=== PATIENT | female | born 1940 | race Caucasian/White ===

== ENCOUNTER → 2018-04-14 | Outpatient (CLI) | payer MEDICARE, OTHER ==
--- NOTE | 2018-04-14 14:37 | XR ---
EXAM TYPE: LUMBAR SPINE X RAY SERIES COMPARISON: NONE HISTORY: Low back pain TECHNIQUE: 3 views are submitted. FINDINGS: Alignment is anatomic. The pedicles are intact. The transverse processes are intact. Diffuse osteo penia. Multilevel mild degenerative disc disease. Facet arthropathy L4-5 and L5-S1. Vascular calcific ations noted. Minimal anterolisthesis L4 on L5. IMPRESSION: 1. Multilevel mild degenerative disc disease with more advanced facet arthropathy involving the lower lumbar spine. Consider follow-up MRI for assessment foraminal encroachment..
== END | disposition home or self-care (01) ==
LOC: RADXRMAIN 14:04
PROVIDERS: ATTEND Physician Assistant
DX: M51.36 Other intervertebral disc degeneration, lumbar region (principal); M46.96 Unspecified inflammatory spondylopathy, lumbar region
CPT/HCPCS: 72100

== ENCOUNTER → 2018-05-10 | Outpatient (CLI) | payer MEDICARE, OTHER ==
--- NOTE | 2018-05-10 15:52 | BD ---
EXAMINATION TYPE: Axial Bone Density DATE OF EXAM: 05/10/2018 COMPARISON: NONE CLINICAL HISTORY: Menopausal state. Osteoporosis screening. Height: 4'10 Weight: 134 FRAX RISK QUESTIONS: Secondary Osteoporosis: RISK FACTORS HISTORY OF: Postmenopausal woman: y MEDICATIONS: Thyroid Medications: Which medication: Levothyroxine How Lon Additional Medications: pain pills, cholesterol Additional History: breast cancer 1994, radiation, chemo EXAM MEASUREMENTS: Bone mineral densitometry was performed using the [employer] System. Bone mineral density as measured about the Lumbar spine is: ----- L1-L4(G/cm2): 0.952 T Score Values are as follows: ----- L2: -1.9 ----- L3: -2.0 ----- L4: -2.0 ----- L1-L4: -1.9 Bone mineral density about the R hip (g/cm2): 0.679 Bone mineral density about the L hip (g/cm2): 0.670 T Score values are as follows: -----R Neck: -2.6 -----L Neck: -2.6 -----R Total: -2.0 -----L Total: -2.3 IMPRESSION: Osteoporosis (T Score less than -2.5). There is increased fracture risk and therapy is usually indicated based on age. Re-Screen 1-2 years. NOTE: T-SCORE=SD OF THE YOUNG ADULT MEAN.
--- NOTE | 2018-05-11 13:28 | MM ---
Reason for exam: screening (asymptomatic). History: Patient is postmenopausal and has history of breast cancer at age 54. Family history of breast cancer in 3 sisters. Lumpectomy of the right breast. Radiation therapy of the right breast. Took hormonal contraceptives for 29 years beginning at age 25. Took antineoplastic for 5 years. Physical Findings: A clinical breast exam by your physician is recommended on an annual basis and results should be correlated with mammographic findings. MG Screening Mammo w CAD Bilateral CC and MLO view(s) were taken. The breast tissue is heterogeneously dense. This may lower the sensitivity of mammography. Benign calcifications. There is no discrete abnormality. Post operative changes in the right breast. ASSESSMENT: Benign, BI-RAD 2 RECOMMENDATION: Routine screening mammogram of both breasts in 1 year.
== END | disposition home or self-care (01) ==
LOC: RADMAMWWP 14:39
PROVIDERS: ATTEND Family Medicine
DX: Z12.31 Encounter for screening mammogram for malignant neoplasm of breast (principal); Z00.00 Encounter for general adult medical examination without abnormal findings; M81.0 Age-related osteoporosis without current pathological fracture
CPT/HCPCS: 77067; 77080

== ENCOUNTER 2018-06-24 13:40 | Emergency (ER) | payer MEDICARE, OTHER ==
[2018-06-24 13:53] VITALS: BP 92/65; PULSE 112; RESP 20; TEMP 98.5
--- NOTE | 2018-06-24 14:32 | CT ---
EXAMINATION TYPE: CT brain cspine wo con DATE OF EXAM: 06/24/2018 COMPARISON: NONE HISTORY: Fell today, left forehead abrasion and neck pain. CT DLP: 1160 mGycm. Automated Exposure Control for Dose Reduction was Utilized. TECHNIQUE: CT scan of the head and cervical spine are performed without contrast. FINDINGS: There is no acute intracranial hemorrhage or shift identified. There is ventricular and s ulcal prominence. . There is low attenuation the periventricular white matter. Exam slightly suboptim al as portions of left hand are outside field of view. Vascular desiccation distal internal carotid a rteries bilaterally is present. Visualized portion of calvarium is intact. The globes are intact and the visualized sinuses are clear. Cervical spine is visualized in its entirety from C1 through upper thoracic levels and demonstrates s traightened alignment without evidence of acute fracture or dislocation. Prevertebral soft tissue ap pears within normal limits. The C1-C2 articulation is within normal limits on the coronal images. T here is mild disc space narrowing with mild/moderate anterior spurring C6-C7 level. Vertebral body he ights and disc space heights are otherwise maintained. Spinal canal is preserved. Moderate calcificat ion left carotid bulb level is seen. Lung apices show emphysematous change. IMPRESSION: 1. There is no acute fracture or dislocation evident in the cervical spine. 2. Suboptimal study without acute intracranial hemorrhage or midline shift is seen. Mild to moderate generalized atrophy and chronic small vessel ischemic change noted.
--- NOTE | 2018-06-24 14:47 | XR ---
EXAMINATION TYPE: XR shoulder complete LT DATE OF EXAM: 06/24/2018 CLINICAL HISTORY: Left shoulder pain after falling injury one day ago. TECHNIQUE: Three views of the left shoulder are obtained. COMPARISON: None. FINDINGS: Demineralization is present. There is no acute fracture/dislocation evident in the left esme ulder. Mild to moderate narrowing of acromioclavicular and glenohumeral joints is seen. Distal acromi on morphology is unremarkable. The visualized ribs are intact and unremarkable. IMPRESSION: There is no acute fracture or dislocation in the left shoulder.
--- NOTE | 2018-06-24 14:48 | XR ---
EXAMINATION TYPE: XR knee complete LT DATE OF EXAM: 06/24/2018 CLINICAL HISTORY: Left knee pain after fall injury yesterday. TECHNIQUE: Three views of the left knee are obtained. COMPARISON: None. FINDINGS: There is no acute fracture/dislocation evident in the left knee. Mild tricompartment joint space loss is seen most prominent patellofemoral compartment where there is minimal spurring. The o verlying soft tissue appears unremarkable. IMPRESSION: There is no acute fracture or dislocation in the left knee.
--- NOTE | 2018-06-24 14:49 | XR ---
EXAMINATION TYPE: XR wrist complete LT DATE OF EXAM: 06/24/2018 CLINICAL HISTORY: Left wrist pain after fall injury yesterday. TECHNIQUE: Frontal, lateral, scaphoid, and oblique images of the left wrist are obtained. COMPARISON: None FINDINGS: There is no acute fracture/dislocation evident in the left wrist. Demineralization is pre sent. The joint spaces in the left wrist appear within normal limits. The overlying soft tissue appe ars unremarkable. IMPRESSION: There is no acute fracture or dislocation in the left wrist.
--- NOTE | 2018-06-24 15:14 | ED ---
Fall HPI - General Chief Complaint: Fall Stated Complaint: Fall Time Seen by Provider: 06/24/18 14:00 Source: patient, RN notes reviewed Mode of arrival: ambulatory Limitations: no limitations - History of Present Illness Initial Comments: 77-year-old female presents to the emergency Department with chief complaint of fall. Patient states she tripped yesterday. Patient states that she did strike her head no loss conscious mild headache today she does take Plavix. No blurred vision no focal weakness. Patient went to left wrist pain left shoulder pain, left knee pain. No open wounds. Patient offers no other complaints. No chest pain or shortness breath. - Related Data Home Medications Medication Instructions Recorded Confirmed Acetaminophen Tab [Tylenol Tab] 650 mg PO Q6H PRN 06/24/18 06/24/18 Alendronate Sodium 70 mg PO Q7D 06/24/18 06/24/18 Clopidogrel [Plavix] 75 mg PO DAILY 06/24/18 06/24/18 Cyanocobalamin [Vitamin B-12] 500 mcg PO DAILY 06/24/18 06/24/18 DULoxetine HCL [Cymbalta] 20 mg PO BID 06/24/18 06/24/18 LORazepam [Ativan] 1 mg PO BID 06/24/18 06/24/18 Levothyroxine Sodium [Synthroid] 50 mcg PO DAILY 06/24/18 06/24/18 Multivitamins, Thera [Multivitamin 1 tab PO DAILY 06/24/18 06/24/18 (formulary)] Omeprazole 20 mg PO DAILY 06/24/18 06/24/18 Simvastatin 40 mg PO DAILY 06/24/18 06/24/18 amLODIPine [Norvasc] 5 mg PO DAILY 06/24/18 06/24/18 rOPINIRole HCL [Requip] 2 mg PO DAILY 06/24/18 06/24/18 traZODone HCL 50 mg PO HS 06/24/18 06/24/18 Allergies Allergy/AdvReac Type Severity Reaction Status Date / Time No Known Allergies Allergy Verified 06/24/18 14:28 Review of Systems ROS Statement: Those systems with pertinent positive or pertinent negative responses have been documented in the HPI. ROS Other: All systems not noted in ROS Statement are negative. 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 Absent: scleral icterus, conjunctival injection, periorbital swelling ENT exam: Present: normal exam, mucous membranes moist Neck exam: Present: normal inspection, full ROM. Absent: tenderness, meningismus, lymphadenopathy Respiratory exam: Present: normal lung sounds bilaterally. Absent: respiratory distress, wheezes, rales, rhonchi, stridor Cardiovascular Exam: Present: normal rhythm, tachycardia, normal heart sounds. Absent: systolic murmur, diastolic murmur, rubs, gallop, clicks GI/Abdominal exam: Present: soft, normal bowel sounds. Absent: distended, te nderness, guarding, rebound, rigid Extremities exam: Present: other (Left shoulder mild tenderness, limited range of motion secondary to pain, left wrist tenderness with palpation mild swelling no ecchymosis no snuffbox tenderness left knee tenderness no palpation over the patella, no abrasion mild ecchymosis no neurovascular intact no tenderness above or below.) Course Vital Signs 06/24/18 13:47 Temperature 98.5 F Pulse Rate 112 H Respiratory 20 Rate Blood Pressure 92/65 O2 Sat by Pulse 98 Oximetry Medical Decision Making - Medical Decision Making 77-year-old female presents emergency Department for fall, head injury, left shoulder left knee and left wrist pain. X-ray CT is obtained no acute abnormality's. Patient be discharged return parameters were discussed. Disposition Clinical Impression: Fall, Head injury, Wrist sprain, Shoulder strain, Contusion of knee, left Disposition: HOME SELF-CARE Condition: Stable Instructions (If sedation given, give patient instructions): Head Injury (ED), Knee Pain (ED) Additional Instructions: Please return to the Emergency Department if symptoms worsen or any other concerns. Is patient prescribed a controlled substance at d/c from ED?: No Referrals: Callum Cain MD [Primary Care Provider] - 1-2 days Time of Disposition: 15:14
== END 2018-06-24 15:45 | disposition home or self-care (01) ==
LOC: EC 13:40
DX: S09.90XA Unspecified injury of head, initial encounter (principal); S63.502A Unspecified sprain of left wrist, initial encounter; S46.912A Strain of unspecified muscle, fascia and tendon at shoulder and upper arm level, left arm, initial encounter; S80.02XA Contusion of left knee, initial encounter; M79.7 Fibromyalgia; I10 Essential (primary) hypertension; E07.9 Disorder of thyroid, unspecified; Z85.3 Personal history of malignant neoplasm of breast; Z86.73 Personal history of transient ischemic attack (TIA), and cerebral infarction without residual deficits; Z87.891 Personal history of nicotine dependence; Z87.39 Personal history of other diseases of the musculoskeletal system and connective tissue; Z79.02 Long term (current) use of antithrombotics/antiplatelets; Z79.890 Hormone replacement therapy; Z79.899 Other long term (current) drug therapy; W10.9XXA Fall (on) (from) unspecified stairs and steps, initial encounter; Y92.511 Restaurant or cafe as the place of occurrence of the external cause
CPT/HCPCS: 70450; 72125; 99284

== ENCOUNTER 2018-09-07 10:17 | Day surgery (SDC) | payer MEDICARE, OTHER ==
[2018-09-05 14:33] VITALS: BMI 25.2
[~2018-09-07 10:17] MED LIST: ALPRAZolam 0.25 MG TAB PO PRN; ALPRAZolam 0.5 MG TAB PO PRN; ASPIRIN 325 MG TAB PO STA; ATORVASTATIN 80 MG TAB PO STA; NITROGLYCERIN SL TABS 0.4 MG TAB SUBLINGUAL PRN; SODIUM CHLORIDE 0.9% 1,000 ML in EMPTY BAG 1 BAG IV ONE
[2018-09-07] MEDS ORDERED: SODIUM CHLORIDE 0.9% 1,000 ML IV ONE (10:30)
[2018-09-07 11:03] VITALS: TEMP 98
[2018-09-07] MEDS ORDERED: LIDOCAINE 1% INJ 10MG/ML (20 ML MDV) ONE (12:23)
[2018-09-07] MEDS ORDERED: MIDAZOLAM (PF) 2 MG/2 ML VIAL IV ONE (12:50)
[2018-09-07] MEDS ORDERED: LIDOCAINE 1% INJ 10MG/ML (20 ML MDV) SQ ONE (12:54)
[2018-09-07] MEDS ORDERED: NITROGLYCERIN SL TABS 0.4 MG TAB SUBLINGUAL ONE ×2 (13:00→13:04)
[2018-09-07] MEDS ORDERED: IOPAMIDOL-370 100ML BTL INJ ONE (13:20)
[2018-09-07] MEDS ORDERED: ACETAMINOPHEN TAB 325 MG TAB PO PRN (13:39)
[2018-09-07] MEDS ORDERED: SODIUM CHLORIDE 0.9% 1,000 ML IV SCH (13:45)
[2018-09-07] MEDS ORDERED: NON-FORMULARY DRUG (Alendronate Sodium [Alendronate Sodium] 70 MG) PO SCH (13:45)
--- NOTE | 2018-09-07 16:35 | CC ---
CARDIAC CATHETERIZATION REPORT DATE OF SERVICE: 09/07/2018 PROCEDURE: Left heart catheterization and coronary angiography. PERFORMED BY: Dr. Matt Bailon. CLINICAL INFORMATION: Mrs. Olena Cool is a 77-year-old lady was recently seen by me a few weeks ago in [facility]. She presented with what seemed to be a pericarditis type picture with pericardial effusion and also a myocarditis type picture with borderline troponin elevation and decreased LV function. LV function improved and pericardial effusion improved remarkably. However, because of symptoms of chest tightness and pressure, I recommended coronary angiography. Also she has underlying cardiomyopathy. Risks, benefits, options and rationale were explained. This patient also has a pressure difference of nearly 40 to 50 mmHg between the left and right upper extremities, and therefore I recommended angiography of the left subclavian artery as well. PROCEDURE NOTE: Under local anesthesia and strict aseptic precautions, a 6-Romansh introducer was placed in the right femoral artery. Using a David catheter, I performed selective injection of the left subclavian artery and performed angiography in multiple projections. I then used standard Lavon catheters for coronary angiography and a pigtail catheter to check LV pressures. LV gram was not performed. Sheath was taken out and manual compression used to secure hemostasis. Femstop was applied and patient was sent to the room in a stable condition. The results were discussed with the patient, her son and [id number]. I am recommending staged intervention of the circumflex, marginal and the mid LAD, which will be performed in the next week or so. The patient was hydrated before the procedure and she will be hydrated after the procedure prior to discharge. Moderate conscious sedation time was 24 minutes. Patient was administered Versed. Oxygen saturation, hemodynamics and EKG were monitored closely. CARDIAC CATHETERIZATION FINDINGS: The left ventricular end-diastolic pressure was 12 mmHg without any gradient across the aortic valve. CORONARY ANGIOGRAPHY FINDINGS: RIGHT CORONARY ARTERY: This is technically a nondominant vessel, small in caliber and distribution, with diffuse disease. A limited amount of myocardium is supplied by it. LEFT SUBCLAVIAN ARTERY: This vessel has a tight 80% stenosis with heavy calcification in the proximal portion of the circumflex as it comes off from the aorta. Left internal mammary artery appears to be of a good caliber. There is heavy calcification and 80% stenosis in the circumflex, which explains her pressure difference in both the arms. LEFT MAIN CORONARY ARTERY: This is a short, patent, disease-free vessel that bifurcates into LAD and circumflex. LEFT ANTERIOR DESCENDING CORONARY ARTERY: This is a fair-caliber vessel, heavily calcified. It has diffuse disease, but in the mid portion there is an eccentric 70% to 80% narrowing, a long calcified lesion, after which the caliber improves and the vessel runs all the way to the apex supplying a fair amount of myocardium. Small septal and diagonal branches come off which are free of significant disease. LEFT POSTERIOR CIRCUMFLEX CORONARY ARTERY: This is a very dominant vessel, gives off a high first obtuse marginal that has an 80% stenosis, fair-caliber, fair-distribution vessel. Distally it gives off PDA and PLV branches, both of which are large in caliber and distribution but have no other significant disease. LEFT VENTRICULOGRAM: This was not performed. FINAL IMPRESSION: This patient has a dominant left circumflex coronary artery with a first obtuse marginal of 80% stenosis, significant fair-caliber vessel. LAD is diffusely diseased, but the mid portion is 70% to 80% stenosed with heavy calcification. The nondominant RCA has mild diffuse disease. Left subclavian has a significant 80% stenosis with calcification. Filling pressures are normal without any gradient across the aortic valve. RECOMMENDATIONS: I am recommending staged intervention of the LAD and circumflex marginal. Patient will be brought back for the procedure after adequate hydration. Circumflex intervention will be performed also electively. Findings, rationale, risks, benefits and options were explained to the patient and family. They understand all details and wish to proceed with the procedure. MMODL / IJN: [id number] /
[2018-09-07 17:22] VITALS: RESP 16
[2018-09-07 17:36] VITALS: BP 159/77; PULSE 73
[2018-09-07] MEDS ORDERED: AMOXICILLIN PO SCH (21:00)
[2018-09-07] MEDS ORDERED: NON-FORMULARY DRUG (Magnesium Oxide 250 MG) PO SCH (21:00)
[2018-09-07] MEDS ORDERED: NON-FORMULARY DRUG (Simvastatin [Simvastatin] 40 MG) PO SCH (21:00)
[2018-09-07] MEDS ORDERED: LOSARTAN 50 MG TAB PO SCH (21:00)
[2018-09-07] MEDS ORDERED: CARVEDILOL 3.125 MG TAB PO SCH (21:00)
[2018-09-07] MEDS ORDERED: traZODone HCL 50 MG TAB PO SCH (21:00)
[2018-09-07] MEDS ORDERED: DULoxetine HCL 20 MG CAPSULE.DR PO SCH (21:00)
[2018-09-07] MEDS ORDERED: LORazepam 1 MG TAB PO SCH (21:00)
[2018-09-07] MEDS ORDERED: GABAPENTIN 300 MG CAP PO SCH (21:00)
[2018-09-07] MEDS ORDERED: ROPINIROLE HCL 2 MG PO SCH (21:00)
[2018-09-08] MEDS ORDERED: MULTIVITAMINS, THERA 1 EACH TAB PO SCH (09:00)
[2018-09-08] MEDS ORDERED: LEVOTHYROXINE 50 MCG TAB PO SCH (09:00)
[2018-09-08] MEDS ORDERED: CYANOCOBALAMIN 500 MCG TAB PO SCH (09:00)
[2018-09-08] MEDS ORDERED: NON-FORMULARY DRUG (Aspirin [Adult Low Dose Aspirin Ec] 81 MG) PO SCH (09:00)
[2018-09-08] MEDS ORDERED: NON-FORMULARY DRUG (Omeprazole [Omeprazole] 20 MG) PO SCH (09:00)
[2018-09-08] MEDS ORDERED: CLOPIDOGREL 75 MG TAB PO SCH (09:00)
--- NOTE | 2018-09-08 12:48 | ECHOF ---
Referral Reason:evaluate pericardial effusion MEASUREMENTS -------- HEIGHT: 149.9 cm WEIGHT: 56.2 kg BP: IVSd: 1.3 cm (0.6 - 1.1) LVIDd: 4.6 cm (3.9 - 5.3) LVPWd: 1.2 cm (0.6 - 1.1) IVSs: 1.6 cm LVIDs: 4.0 cm LVPWs: 1.5 cm LAESV Index (A-L): 40.00 ml/m Ao Diam: 2.5 cm (2.0 - 3.7) AV Cusp: 1.5 cm (1.5 - 2.6) LA Diam: 4.0 cm (2.7 - 3.8) EPSS: 1.5 cm MV E Ky: 0.73 m/s MV DecT: 190 ms MV A Ky: 1.32 m/s MV E/A Ratio: 0.55 RAP: 5.00 mmHg RVSP: 33.58 mmHg MV EF SLOPE: 73.22 mm/s (70 - 150) MV EXCURSION: 1.47 cm (> 18.000) FINDINGS -------- Sinus rhythm. This was a technically adequate study. The left ventricular size is normal. There is mild concentric left ventricular hypertrophy. There is moderate global hypokinesis of LV . Overall left ventricular systolic function is severely impa ired with, an EF between 25 - 30 %. The right ventricle is normal in size. Left atrium is severely dilated by volume. The right atrial size is normal. Interatrial and interventricular septum intact. There is mild aortic valve sclerosis without stenosis. There is no evidence of aortic regurgitation . There is no evidence of aortic stenosis. Mild mitral regurgitation is present. Mild tricuspid regurgitation present. There is no evidence of pulmonary hypertension. The right v entricular systolic pressure, as measured by Doppler, is 33.58mmHg. The pulmonic valve is normal. The aortic root size is normal. The inferior vena cava was not well visualized. There is a small, generalized pericardial effusion present. CONCLUSIONS -------- 1. Sinus rhythm. 2. This was a technically adequate study. 3. The left ventricular size is normal. 4. There is mild concentric left ventricular hypertrophy. 5. There is moderate global hypokinesis of LV . 6. Overall left ventricular systolic function is severely impaired with, an EF between 25 - 30 %. 7. The right ventricle is normal in size. 8. Left atrium is severely dilated by volume. 9. The right atrial size is normal. 10. Interatrial and interventricular septum intact. 11. There is mild aortic valve sclerosis without stenosis. 12. There is no evidence of aortic regurgitation. 13. There is no evidence of aortic stenosis. 14. Mild mitral regurgitation is present. 15. Mild tricuspid regurgitation present. 16. There is no evidence of pulmonary hypertension. 17. The right ventricular systolic pressure, as measured by Doppler, is 33.58mmHg. 18. The pulmonic valve is normal. 19. The aortic root size is normal. 20. The inferior vena cava was not well visualized. 21. There is a small, generalized pericardial effusion present. ELECTRICAL AND RADIO MECHANIC: Brunilda Longoria RDCS
== END 2018-09-07 19:15 | disposition home or self-care (01) ==
LOC: CATHCVL 10:17
PROVIDERS: ATTEND Internal Medicine Interventional Cardiology
DX: I25.10 Atherosclerotic heart disease of native coronary artery without angina pectoris (principal); F17.210 Nicotine dependence, cigarettes, uncomplicated; Z86.73 Personal history of transient ischemic attack (TIA), and cerebral infarction without residual deficits; Z85.3 Personal history of malignant neoplasm of breast; I11.0 Hypertensive heart disease with heart failure; I50.9 Heart failure, unspecified; Z79.82 Long term (current) use of aspirin; Z79.890 Hormone replacement therapy; Z79.899 Other long term (current) drug therapy; Z79.02 Long term (current) use of antithrombotics/antiplatelets; I77.1 Stricture of artery; I42.0 Dilated cardiomyopathy; I31.3 Pericardial effusion (noninflammatory)
CPT/HCPCS: 93306; 93458; C1894; C1769; J2001; Q9967; J2250

== ENCOUNTER → 2018-09-13 | Outpatient (CLI) | payer MEDICARE, OTHER ==
[2018-09-13 11:24] LABS: HCT 42.4 % (34.0-46.0); HGB 13.6 gm/dL (11.4-16.0); MCHC 32.1 g/dL (31.0-37.0); MCV 90.4 fL (80.0-100.0); Platelet Count 224 k/uL (150-450); WBC 7.5 k/uL (3.8-10.6)
[2018-09-13 11:30] LABS: Magnesium 2.3 mg/dL (1.6-2.3); Potassium 4.5 mmol/L (3.5-5.1)
== END | disposition home or self-care (01) ==
LOC: LABPAT 10:38
PROVIDERS: ATTEND Internal Medicine Interventional Cardiology
DX: Z01.812 Encounter for preprocedural laboratory examination (principal); I25.10 Atherosclerotic heart disease of native coronary artery without angina pectoris; I10 Essential (primary) hypertension
CPT/HCPCS: 80051; 82565; 82947; 83735; 84520; 85027

== ENCOUNTER 2018-09-20 09:31 | Day surgery (SDC) | payer MEDICARE, OTHER ==
[2018-09-20] MEDS ORDERED: ALPRAZolam 0.5 MG TAB PO PRN (09:53)
[2018-09-20] MEDS ORDERED: SODIUM CHLORIDE 0.9% 1,000 ML in EMPTY BAG 1 BAG IV ONE (09:53)
[2018-09-20] MEDS ORDERED: NITROGLYCERIN SL TABS 0.4 MG TAB SUBLINGUAL PRN (09:53)
[2018-09-20] MEDS ORDERED: ATORVASTATIN 80 MG TAB PO STA (09:53)
[2018-09-20] MEDS ORDERED: ASPIRIN 325 MG TAB PO STA (09:53)
[2018-09-20] MEDS ORDERED: ALPRAZolam 0.25 MG TAB PO PRN (09:53)
[2018-09-20] MEDS ORDERED: LIDOCAINE 1% INJ 10MG/ML (20 ML MDV) ONE (10:23)
[2018-09-20] MEDS ORDERED: MIDAZOLAM (PF) 2 MG/2 ML VIAL IVP ONE (11:05)
[2018-09-20] MEDS ORDERED: LIDOCAINE 1% INJ 10MG/ML (20 ML MDV) SQ ONE (11:09)
[2018-09-20] MEDS ORDERED: HEPARIN SODIUM 1,000 UN/ML (10ML VL) ONE (11:12)
[2018-09-20] MEDS: NITROGLYCERIN 1000MCG/10ML SYRINGE INTRACORON ONE ×6 (11:12→12:07)
[2018-09-20] MEDS: HEPARIN SODIUM 1,000 UN/ML (10ML VL) IV ONE ×2 (11:12→12:09)
[2018-09-20] MEDS ORDERED: HYDROmorphone 1 MG/ML 1 ML SYRINGE ONE (11:43)
[2018-09-20] MEDS ORDERED: HYDROmorphone 1 MG/ML 1 ML SYRINGE IVP ONE (11:45)
[2018-09-20] MEDS ORDERED: IOPAMIDOL-370 100ML BTL INJ ONE ×2 (11:55→12:14)
[2018-09-20] MEDS ORDERED: CLOPIDOGREL 75 MG TAB ONE (12:10)
[2018-09-20] MEDS ORDERED: CLOPIDOGREL 75 MG TAB PO ONE (12:14)
[2018-09-20] MEDS ORDERED: ACETAMINOPHEN TAB 325 MG TAB PO PRN (12:21)
[2018-09-20] MEDS ORDERED: SODIUM CHLORIDE 0.9% 1,000 ML IV SCH (12:30)
[2018-09-20] MEDS ORDERED: ZOLPIDEM 5 MG TAB PO PRN (12:34)
[2018-09-20] MEDS ORDERED: ATROPINE SULFATE 0.1 MG/ML 10ML SYRINGE IV PRN (12:34)
[2018-09-20] MEDS ORDERED: RX INFO: IV CONTRAST WAS GIVEN 1 EACH MISC MISCELLANE PRN (12:34)
[2018-09-20] MEDS ORDERED: MAG HYDROX/AL HYDROX/SIMETH 30 ML CUP PO PRN (12:34)
[2018-09-20 15:17] VITALS: BMI 25.8
[2018-09-20] MEDS: GABAPENTIN 300 MG CAP PO SCH ×2 (15:29→22:47)
[2018-09-20] MEDS: CARVEDILOL 6.25 MG TAB PO SCH (17:23)
[2018-09-20] MEDS ORDERED: LOSARTAN 50 MG TAB PO SCH (21:00)
[2018-09-20] MEDS ORDERED: traZODone HCL 50 MG TAB PO SCH (21:00)
--- NOTE | 2018-09-20 22:44 | CC ---
CARDIAC CATHETERIZATION REPORT PROCEDURE: Orbital atherectomy, PTCA and stenting of heavily calcified mid left anterior descending coronary artery with a drug-eluting stent. PERFORMED BY: Dr. Matt Bailon. SEDATION: Moderate conscious sedation time was 64 minutes. The patient was administered Versed and Dilaudid. Oxygen saturation, hemodynamics and EKG were monitored closely. DATE OF SERVICE: 09/20/2018. CLINICAL INFORMATION: Mrs. Olena Cool is a 77-year-old lady with recent diagnosis of cardiomyopathy with heart failure, also had some pericarditis type picture. She underwent a cardiac cath about 2 weeks ago which revealed a heavily calcified mid LAD lesion in the range of 70- 80 percent, very long eccentric heavily calcified. She also has a left subclavian stenosis and also a first obtuse marginal stenosis of a very dominant circumflex coronary artery. The RCA was small, nondominant with mild diffuse disease. She was advised LAD intervention. Due discussion regarding the rationale, risks, benefits, options were explained. Because of heavy calcification, I recommended that we will do an orbital atherectomy and stenting. She was brought in for the procedure electively. PROCEDURE NOTE: Under local anesthesia and strict aseptic precautions, a 6-Taiwanese introducer was placed in the right femoral artery. I used a JL3.5 guide catheter to cannulate the left coronary artery. The patient was administered intravenous heparin and her ACT was 384. I used a run-through wire to cross the long calcified segment in the LAD and kept the wire distally. I used a teleport exchange catheter and with this I exchanged this wire for a Viper wire. I then used an orbital atherectomy device and I used a glide assist feature. With this, I made 3 passes and performed atherectomy of the mid LAD. Patient tolerated the procedure well without any issues. The atherectomy device was taken out under fluoroscopic guidance. Using the same Viper wire, I deployed a 2.0 caliber 18 mm long on Bowen drug-eluting stent at 14 atmospheres. Excellent angiographic result was achieved. I then advanced a 2.25 caliber 15 mm long NC Trek balloon and with this NC Trek balloon, I post dilated the stent in the entire length at 14 atmospheres. Patient had chest pain and precordial ST elevation. ACT was good at 384. Subsequent ACT at the end of procedure was 273. Additional 2000 units of heparin was given. Excellent angiographic result was achieved. Patient had chest pain and EKG changes, which improved completely and there was an excellent CECIL-3 flow at the end of procedure. The results were discussed with the patient and family. The sheath was taken out and Angio-Seal device used to secure hemostasis. Because of some oozing, I recommended a Femstop for a couple of hours. HAZEL / LAUREN: [id number] /
[2018-09-20] MEDS: DULoxetine HCL 20 MG CAPSULE.DR PO SCH (22:48)
[2018-09-21 03:02] VITALS: RESP 16; TEMP 98
[2018-09-21] MEDS: CARVEDILOL 6.25 MG TAB PO SCH (06:10)
[2018-09-21] MEDS ORDERED: LEVOTHYROXINE 50 MCG TAB PO SCH (06:30)
[2018-09-21 06:54] LABS: HCT 38.4 % (34.0-46.0); HGB 11.9 gm/dL (11.4-16.0); Hypochromasia Slight; MCH 29.3 pg (25.0-35.0); MCHC 31.1 g/dL (31.0-37.0); MCV 94.4 fL (80.0-100.0); Mean Platelet Volume 8.3; Platelet Count 150 k/uL (150-450); RBC 4.07 m/uL (3.80-5.40); RDW 15.2 % (11.5-15.5); WBC 5.8 k/uL (3.8-10.6)
[2018-09-21 07:04] LABS: African American GFR (CKD) >90 (>60 ml/min/1.73 sqM); Anion Gap 5 mmol/L; Blood Urea Nitrogen 12 mg/dL (7-17); Calcium 8.5 mg/dL (8.4-10.2); Carbon Dioxide 25 mmol/L (22-30); Chloride 110 mmol/L (98-107); Glucose 99 mg/dL (74-99); Potassium 4.2 mmol/L (3.5-5.1); Sodium 140 mmol/L (137-145)
[2018-09-21] MEDS: DULoxetine HCL 20 MG CAPSULE.DR PO SCH (08:24)
[2018-09-21] MEDS: GABAPENTIN 300 MG CAP PO SCH (08:24)
[2018-09-21 08:40] VITALS: BP 109/95; PULSE 90
--- NOTE | 2018-09-21 08:50 | P.DS ---
Providers Attending physician: Tobi Bailon Consults: 09/20/18 12:34 Consult Physician Routine Consulting Provider: [facility] Consult Reason/Comments: Post Interventional patient Do you want consulting provider notified?: Already Contacted Primary care physician: Stated None Hospital Course: This is a pleasant 77-year-old female with recent diagnosis of cardiomyopathy and heart failure she underwent cardiac catheterization 2 weeks ago revealing a heavy calcified mid LAD lesion in the range of 70-80%. She was advised intervention of the LAD. She was brought in yesterday electively to undergo orbital atherectomy and stent placement to the LAD via the right femoral artery. She tolerated the procedure well without any issues. Excellent angiographic results were achieved. Repeat EKG this morning revealed precordial ST changes that were present prior to the procedure. Laboratory data reviewed WBC 5.8, hemoglobin 11.9, platelets 150, sodium 140, potassium 4.2, creatinine 0.73 with a GFR of 80. Blood pressure 109/95 heart rate 90, afebrile and maintaining oxygen saturation on room air. Right groin is soft, nontender with no evidence of hematoma, bleeding or oozing. GENERAL: Well-appearing, well-nourished and in no acute distress. NECK: Supple without JVD or thyromegaly. LUNGS: Breath sounds clear to auscultation bilaterally. Respiration equal and unlabored. No wheezes, rales or rhonchi. HEART: Regular rate and rhythm without murmurs, rubs or gallops. S1 and S2 heard. EXTREMITIES: Normal range of motion, no edema. No clubbing or cyanosis. Peripheral pulses intact. Right groin access site is soft, nontender, dry with no evidence of bleeding. ASSESSMENT Coronary artery disease status post successful atherectomy and stent placement to the mid LAD PLAN Hemodynamically stable. Patient is maintained on dual antiplatelet therapy with aspirin and Plavix. Atorvastatin 40 mg daily has been added to her regimen. Coreg has been increased to 6.25 mg twice a day. Follow-up appointment in the office with Dr. Bailon next week. Discharge instructions and plan of care of been discussed in great detail with the patient she verbalizes understanding. Nurse Practitioner note has been reviewed, I agree with a documented findings and plan of care. Patient was seen and examined. Patient Condition at Discharge: Stable Plan - Discharge Summary Discharge Rx Participant: Yes New Discharge Prescriptions: New Carvedilol [Coreg] 6.25 mg PO AC-BID #180 tab Atorvastatin [Lipitor] 40 mg PO HS #90 tab Continue traZODone HCL 50 mg PO HS rOPINIRole HCL [Requip] 2 mg PO HS Omeprazole 20 mg PO DAILY Alendronate Sodium 70 mg PO WE Levothyroxine Sodium [Synthroid] 50 mcg PO QAM LORazepam [Ativan] 1 mg PO BID DULoxetine HCL [Cymbalta] 20 mg PO BID Clopidogrel [Plavix] 75 mg PO DAILY Multivitamins, Thera [Multivitamin (formulary)] 1 tab PO DAILY Cyanocobalamin [Vitamin B-12] 500 mcg PO DAILY Acetaminophen Tab [Tylenol] 650 mg PO Q6H PRN PRN Reason: Pain Aspirin [Adult Low Dose Aspirin EC] 81 mg PO DAILY Gabapentin [Neurontin] 300 mg PO HS Losartan [Cozaar] 50 mg PO HS Magnesium Oxide [Mag-Ox] 250 mg PO HS Discontinued Simvastatin 40 mg PO HS Carvedilol [Coreg] 3.125 mg PO BID Discharge Medication List Acetaminophen Tab [Tylenol] 650 mg PO Q6H PRN 06/24/18 [History] Alendronate Sodium 70 mg PO WE 06/24/18 [History] Clopidogrel [Plavix] 75 mg PO DAILY 06/24/18 [History] Cyanocobalamin [Vitamin B-12] 500 mcg PO DAILY 06/24/18 [History] DULoxetine HCL [Cymbalta] 20 mg PO BID 06/24/18 [History] LORazepam [Ativan] 1 mg PO BID 06/24/18 [History] Levothyroxine Sodium [Synthroid] 50 mcg PO QAM 06/24/18 [History] Multivitamins, Thera [Multivitamin (formulary)] 1 tab PO DAILY 06/24/18 [History] Omeprazole 20 mg PO DAILY 06/24/18 [History] rOPINIRole HCL [Requip] 2 mg PO HS 06/24/18 [History] traZODone HCL 50 mg PO HS 06/24/18 [History] Aspirin [Adult Low Dose Aspirin EC] 81 mg PO DAILY 09/05/18 [History] Gabapentin [Neurontin] 300 mg PO HS 09/05/18 [History] Losartan [Cozaar] 50 mg PO HS 09/05/18 [History] Magnesium Oxide [Mag-Ox] 250 mg PO HS 09/05/18 [History] Atorvastatin [Lipitor] 40 mg PO HS #90 tab 09/21/18 [Rx] Carvedilol [Coreg] 6.25 mg PO AC-BID #180 tab 09/21/18 [Rx] Follow up Appointment(s)/Referral(s): Tobi Bailon MD [STAFF PHYSICIAN] - 09/26/18 9:30 am Patient Instructions/Handouts: Heart Healthy Diet (DC), Coronary Intravascular Stent Placement (DC) Activity/Diet/Wound Care/Special Instructions: 1. Support your puncture site by applying firm, steady pressure whenever you cough, laugh, sneeze or bear down to have a bowel movement (2-day restriction). 2. Watch for any excessive bruising, active bleeding, a firm knot forming under your skin, extreme tenderness and signs of infection (redness, swelling, fever). 3. Shower daily, do not soak puncture in a tub bath, jacuzzi, pool, tony etc. for 1 week. This is to prevent risk of infection. 4. Drink plenty of fluids the day of and day after your procedure to flush contrast dye out of your kidneys. 5. Take all medications as directed. Never stop any new medication without your physicians OK. 6. No driving for 2 days after procedure. 7. 10- pound weight lifting restriction for 1 week. 8. Low sodium/low fat diet. 9. Activity limited until follow up appointment with your outpatient clerk. In case of any problems, please call [facility] [place] @ [phone]. Discharge Disposition: HOME SELF-CARE
[2018-09-21] MEDS ORDERED: ASPIRIN 81 MG PO SCH (09:00)
[2018-09-21] MEDS ORDERED: CLOPIDOGREL 75 MG TAB PO SCH (09:00)
[2018-09-21] MEDS ORDERED: ATORVASTATIN 40 MG TAB PO SCH (21:00)
== END 2018-09-21 09:31 | disposition home or self-care (01) ==
LOC: CATHCVL 09:31 → 3SCARD 12:04 → CATHCVL 09-21 09:31
PROVIDERS: ATTEND Internal Medicine Interventional Cardiology
DX: I25.10 Atherosclerotic heart disease of native coronary artery without angina pectoris (principal); I25.84 Coronary atherosclerosis due to calcified coronary lesion; I50.9 Heart failure, unspecified; I11.0 Hypertensive heart disease with heart failure; Z82.49 Family history of ischemic heart disease and other diseases of the circulatory system; F17.210 Nicotine dependence, cigarettes, uncomplicated; Z86.73 Personal history of transient ischemic attack (TIA), and cerebral infarction without residual deficits; I42.0 Dilated cardiomyopathy; E78.2 Mixed hyperlipidemia; Z79.82 Long term (current) use of aspirin; Z79.890 Hormone replacement therapy; Z79.899 Other long term (current) drug therapy
CPT/HCPCS: 85347; 80048; 85027; C9602; C1760; C1887; C1725; C1769 ×3; C1894; C1714; C1874; J2001; J1644; J1170; Q9967; J2250

== ENCOUNTER 2018-10-07 06:26 | Day surgery (SDC) | payer MEDICARE, OTHER ==
[2018-10-07] MEDS ORDERED: LIDOCAINE 1% INJ 10MG/ML (20 ML MDV) ONE (07:18)
[2018-10-07] MEDS ORDERED: MIDAZOLAM PF (FBP) 2 MG/2 ML VIAL IV ONE (07:40)
[2018-10-07] MEDS ORDERED: HEPARIN SODIUM 1,000 UN/ML (10ML VL) ONE (07:43)
[2018-10-07] MEDS ORDERED: LIDOCAINE 1% INJ 10MG/ML (20 ML MDV) SQ ONE (07:44)
[2018-10-07] MEDS: HEPARIN SODIUM 1,000 UN/ML (10ML VL) IV ONE ×2 (07:46→08:04)
[2018-10-07] MEDS: NITROGLYCERIN 1000MCG/10ML SYRINGE INTRACORON ONE ×2 (07:57→08:05)
[2018-10-07] MEDS ORDERED: IOPAMIDOL-370 100ML BTL INJ ONE ×2 (08:09→08:15)
[2018-10-07] MEDS ORDERED: CLOPIDOGREL 75 MG TAB ONE (08:13)
[2018-10-07] MEDS ORDERED: CLOPIDOGREL 75 MG TAB PO ONE (08:16)
[2018-10-07] MEDS ORDERED: MAG HYDROX/AL HYDROX/SIMETH 30 ML CUP PO PRN (08:27)
[2018-10-07] MEDS ORDERED: RX INFO: IV CONTRAST WAS GIVEN 1 EACH MISC MISCELLANE PRN (08:27)
[2018-10-07] MEDS ORDERED: ATROPINE SULFATE 0.1 MG/ML 10ML SYRINGE IV PRN (08:27)
[2018-10-07] MEDS ORDERED: ZOLPIDEM 5 MG TAB PO PRN (08:27)
[2018-10-07] MEDS ORDERED: NITROGLYCERIN SL TABS 0.4 MG TAB SUBLINGUAL PRN (08:27)
[2018-10-07] MEDS ORDERED: SODIUM CHLORIDE 0.9% 1,000 ML in EMPTY BAG 1 BAG IV ONE (08:40)
--- NOTE | 2018-10-07 09:38 | PTCA ---
PERCUTANEOUSTRANS CORORONARY ANGIOGRAPHY DATE OF SERVICE: 10/07/2018 PROCEDURE: PTCA and stenting of first obtuse marginal branch of circumflex. PERFORMED BY: Dr. Matt Bailon. Moderate conscious sedation time was 28 minutes. Patient was administered Versed and oxygen saturation, hemodynamics and EKG were monitored closely. CLINICAL INFORMATION: Mrs. Olena Cool is a 77-year-old lady with a recent diagnosis of nonischemic cardiomyopathy who also was found to have significant coronary artery disease. The initial presentation was that of nonischemic cardiomyopathy with a pericarditis type picture, but later on cardiac cath revealed significant LAD disease as well as first obtuse marginal disease with a dominant circumflex, but a nondominant RCA. She also has left subclavian stenosis which is severe but no disabling symptoms. She underwent stenting of the LAD after an orbital atherectomy on 09/21/2018 with a good result. She is brought in for elective PCI of circumflex marginal. PROCEDURE NOTE: Under local anesthesia and strict aseptic precautions, a 6-Burkin[place] introducer was placed in the right femoral artery. A JL3.5 catheter was used to cannulate the left coronary artery. Initial injection revealed that the LAD was widely patent with remarkably good flow. Patient was administered a total of 5500 units of heparin and the ACT was over 300. The initial ACT was 277 after receiving about 4000 units of heparin. With a JL3.5 guide catheter was used to cannulate the left coronary artery, a run-through wire was used to cross the lesion. Predilatation was performed of the first obtuse marginal with a 2.25 caliber 12 mm NC Trek balloon. I then deployed a 12 mm long 2.25 caliber Xience stent at 11 atmospheres. Patient had mild chest discomfort. No EKG changes. Excellent angiographic result was achieved. The main circumflex has a mild 30% narrowing just distal to the first obtuse marginal where there may have been some of redistribution of the plaque. However, the flow was excellent. The lesion is no more than 30% to 35% in multiple projections. Excellent angiographic result of the first obtuse marginal was achieved. The sheath was taken out and Angio-Seal device used to secure hemostasis and she was sent to the room in a stable condition. The patient will be discharged tomorrow if she remains stable. She is already on aspirin and Plavix. She received an additional 150 mg of Plavix orally today. Results were discussed with the patient and family. MMODL / IJN: [id number] /
[2018-10-07 15:23] VITALS: BMI 26.3
[2018-10-07] MEDS: LORazepam 1 MG TAB PO SCH ×2 (19:41→20:20)
[2018-10-07] MEDS: DULoxetine HCL 20 MG CAPSULE.DR PO SCH ×2 (19:42→20:20)
[2018-10-07] MEDS: CARVEDILOL 6.25 MG TAB PO SCH (19:43)
[2018-10-07] MEDS: ASPIRIN 81 MG PO SCH (19:43)
[2018-10-07] MEDS: CLOPIDOGREL 75 MG TAB PO SCH (19:43)
[2018-10-07] MEDS: MULTIVITAMINS, THERA 1 EACH TAB PO SCH (19:43)
[2018-10-07] MEDS: CYANOCOBALAMIN 500 MCG TAB PO SCH (19:43)
[2018-10-07] MEDS ORDERED: MAGNESIUM OXIDE 400 MG TAB PO SCH (21:00)
[2018-10-07] MEDS ORDERED: GABAPENTIN 300 MG CAP PO SCH (21:00)
[2018-10-07] MEDS ORDERED: ATORVASTATIN 40 MG TAB PO SCH (21:00)
[2018-10-07] MEDS ORDERED: LOSARTAN 50 MG TAB PO SCH (21:00)
[2018-10-07] MEDS ORDERED: traZODone HCL 50 MG TAB PO SCH (21:00)
[2018-10-08] MEDS: CARVEDILOL 6.25 MG TAB PO SCH (06:16)
[2018-10-08] MEDS ORDERED: LEVOTHYROXINE 50 MCG TAB PO SCH (06:30)
[2018-10-08 06:45] LABS: Basophils % (A) 1 %; Eosinophils # (A) 0.3 k/uL (0-0.7); Eosinophils % (A) 4 %; HCT 36.4 % (34.0-46.0); HGB 12.1 gm/dL (11.4-16.0); Lymphocytes # (A) 1.3 k/uL (1.0-4.8); Lymphocytes % (A) 20 %; MCH 29.6 pg (25.0-35.0); MCHC 33.2 g/dL (31.0-37.0); MCV 89.2 fL (80.0-100.0); Mean Platelet Volume 8.6; Monocytes # (A) 0.3 k/uL (0-1.0); Monocytes % (A) 5 %; Neutrophils # (A) 4.6 k/uL (1.3-7.7); Neutrophils % (A) 69 %; Platelet Count 207 k/uL (150-450); RBC 4.08 m/uL (3.80-5.40); RDW 14.9 % (11.5-15.5); WBC 6.6 k/uL (3.8-10.6)
[2018-10-08 06:57] LABS: African American GFR (CKD) >90 (>60 ml/min/1.73 sqM); Anion Gap 5 mmol/L; Blood Urea Nitrogen 10 mg/dL (7-17); Calcium 8.5 mg/dL (8.4-10.2); Carbon Dioxide 27 mmol/L (22-30); Chloride 108 mmol/L (98-107); Glucose 90 mg/dL (74-99); Non-African American GFR(CKD) 83 (>60 ml/min/1.73 sqM); Potassium 4.3 mmol/L (3.5-5.1); Sodium 140 mmol/L (137-145)
[2018-10-08] MEDS ORDERED: PANTOPRAZOLE 40 MG TABLET PO SCH (07:30)
[2018-10-08 09:00] VITALS: BP 90/61; PULSE 83; RESP 16; TEMP 98.4
--- NOTE | 2018-10-08 09:12 | DS ---
DISCHARGE SUMMARY DATE OF ADMISSION: 10/07/2018. DATE OF DISCHARGE: 10/08/2018. DISCHARGE DIAGNOSES: 1. Unstable angina. 2. Cardiomyopathy. 3. Hyperlipidemia. 4. Left subclavian stenosis. Mrs Olena Cool was brought into the hospital for elective PCI of first obtuse marginal branch of circumflex. Previously, about 2 weeks ago, she underwent orbital atherectomy and stenting of a long calcified mid LAD lesion. Coronary angiography revealed that the LAD lesion was widely patent. I performed PTCA and stenting of first obtuse marginal uneventfully with a good result. Postprocedure course was uneventful. She has been ambulating in her room without any symptoms. Vital signs are stable. Blood pressure is 108/60, pulse rate is 70 per minute. JVD of 1 cm. No carotid bruit. S1, S2 with a short systolic murmur is audible. Lungs reveal diminished air entry. Abdomen and lower extremity exam is unchanged. Right groin is clean and dry with a good pulse. Very small area of ecchymosis is noted. EKG does not reveal any new acute changes. Laboratory data were unremarkable. The patient can be discharged today and I will see her on Wednesday at 8:30 am. Discharge instructions regarding activity, diet and medications were given. Patient will have a subclavian stenosis addressed at a later date. MMODL / IJN: [id number] /
[2018-10-08] MEDS: MULTIVITAMINS, THERA 1 EACH TAB PO SCH (09:30)
[2018-10-08] MEDS: CLOPIDOGREL 75 MG TAB PO SCH (09:30)
[2018-10-08] MEDS: LORazepam 1 MG TAB PO SCH (09:30)
[2018-10-08] MEDS: DULoxetine HCL 20 MG CAPSULE.DR PO SCH (09:30)
[2018-10-08] MEDS: ASPIRIN 81 MG PO SCH (09:30)
[2018-10-08] MEDS: CYANOCOBALAMIN 500 MCG TAB PO SCH (09:30)
== END 2018-10-08 10:58 | disposition home or self-care (01) ==
LOC: CATHCVL 06:26 → 3SCARD 08:15 → CATHCVL 10-08 10:58
PROVIDERS: ATTEND Internal Medicine Interventional Cardiology
DX: I25.110 Atherosclerotic heart disease of native coronary artery with unstable angina pectoris (principal); I10 Essential (primary) hypertension; E78.5 Hyperlipidemia, unspecified; Z82.49 Family history of ischemic heart disease and other diseases of the circulatory system; Z87.891 Personal history of nicotine dependence; Z95.5 Presence of coronary angioplasty implant and graft; I70.8 Atherosclerosis of other arteries; Z86.73 Personal history of transient ischemic attack (TIA), and cerebral infarction without residual deficits; I42.0 Dilated cardiomyopathy; E78.2 Mixed hyperlipidemia; Z79.82 Long term (current) use of aspirin; Z79.890 Hormone replacement therapy; Z79.899 Other long term (current) drug therapy; Z79.02 Long term (current) use of antithrombotics/antiplatelets
CPT/HCPCS: 85347; 80048; 85025; C9600; C1760; C1725; C1769 ×3; C1894; C1874; J2001; J1644; Q9967; J2250

== ENCOUNTER 2020-06-03 16:54 | Emergency (ER) | payer MEDICARE, OTHER ==
[2020-06-03 18:12] VITALS: TEMP 97.5
--- NOTE | 2020-06-03 18:55 | XR ---
EXAMINATION TYPE: XR wrist complete RT DATE OF EXAM: 06/03/2020 COMPARISON: NONE HISTORY: Wrist abscess TECHNIQUE: 4 views FINDINGS: There are small degenerative cyst in the lunate. I see no fracture nor dislocation. There i s soft tissue swelling of the dorsum of the wrist at the level of the distal radius. There is some sp urring at the first carpometacarpal joint. IMPRESSION: Minor osteoarthritic changes. No fracture. No evidence of osteomyelitis. Posterior soft t issue swelling.
[2020-06-03 21:14] LABS: Basophils # (A) 0.1 k/uL (0-0.2); Basophils % (A) 1 %; Eosinophils # (A) 0.2 k/uL (0-0.7); Eosinophils % (A) 4 %; HCT 38.5 % (34.0-46.0); HGB 13.4 gm/dL (11.4-16.0); Lymphocytes # (A) 1.8 k/uL (1.0-4.8); Lymphocytes % (A) 32 %; MCH 30.5 pg (25.0-35.0); MCHC 34.8 g/dL (31.0-37.0); MCV 87.8 fL (80.0-100.0); Mean Platelet Volume 8.4; Monocytes # (A) 0.3 k/uL (0-1.0); Monocytes % (A) 5 %; Neutrophils # (A) 3.2 k/uL (1.3-7.7); Neutrophils % (A) 56 %; Platelet Count 218 k/uL (150-450); RBC 4.39 m/uL (3.80-5.40); RDW 12.9 % (11.5-15.5); WBC 5.7 k/uL (3.8-10.6)
[2020-06-03 21:30] LABS: Albumin 4.2 g/dL (3.5-5.0); C Reactive Protein 11.2 mg/L (<10.0); Calcium 9.1 mg/dL (8.4-10.2); Potassium 4.6 mmol/L (3.5-5.1); Total Bilirubin 0.7 mg/dL (0.2-1.3); Total Protein 7.2 g/dL (6.3-8.2)
--- NOTE | 2020-06-03 21:35 | ED ---
Skin/Abscess/FB HPI - General Chief complaint: Skin/Abscess/Foreign Body Stated complaint: infection on arm-sent by PCP Time Seen by Provider: 06/03/20 20:06 Source: patient Mode of arrival: ambulatory Limitations: no limitations - History of Present Illness Initial comments: Patient is a 79-year-old female presenting to the emergency Department with co mplaints of a possible abscess on her right arm. Patient states that 2 weeks ago she noticed bruising on the dorsal aspect of her right hand and then a few days after that noticed a small bump on the dorsal aspect of her right wrist. She states the bump has enlarged a little bit and has now decreased in size however she is having some swelling of her right hand and right forearm and pain meds radiating up to her elbow. Patient states she did go to her PCPs office, Dr. Cain's who sent her in for possible abscess. Patient denies any fevers or chills, no chest pain or shortness of breath, no nausea or vomiting. She states that 2 days ago she noticed bruising on her left hand that is new as well and is concerned because that's how the right hand started. She does take plavik and aspirin secondary to history of CVA. She denies any new medications, no changes to medication. She has no further complaints at this time. - Related Data Home Medications Medication Instructions Recorded Confirmed Acetaminophen Tab [Tylenol] 650 mg PO Q6H PRN 06/24/18 06/03/20 Alendronate Sodium 70 mg PO WE 06/24/18 06/03/20 Clopidogrel [Plavix] 75 mg PO DAILY 06/24/18 06/03/20 DULoxetine HCL [Cymbalta] 20 mg PO BID 06/24/18 06/03/20 Levothyroxine Sodium [Synthroid] 50 mcg PO QAM 06/24/18 06/03/20 rOPINIRole HCL [Requip] 2 mg PO HS 06/24/18 06/03/20 traZODone HCL 50 mg PO HS 06/24/18 06/03/20 Aspirin [Adult Low Dose Aspirin EC] 81 mg PO DAILY 09/05/18 06/03/20 Gabapentin [Neurontin] 300 mg PO HS 09/05/18 06/03/20 Losartan [Cozaar] 50 mg PO DAILY 09/05/18 06/03/20 Brimonidine Tartrate [Alphagan P 1 drops BOTH EYES BID 06/03/20 06/03/20 0.2% Ophth Soln] Famotidine 20 mg PO BID 06/03/20 06/03/20 Furosemide [Lasix] 20 mg PO DAILY 06/03/20 06/03/20 Rosuvastatin Calcium 20 mg PO HS 06/03/20 06/03/20 amLODIPine [Norvasc] 5 mg PO HS 06/03/20 06/03/20 clonazePAM [KlonoPIN] 1 mg PO BID 06/03/20 06/03/20 Previous Rx's Medication Instructions Recorded carvediloL [Coreg] 6.25 mg PO AC-BID #180 tab 09/21/18 Clindamycin HCl 300 mg PO Q6HR 7 Days #28 cap 06/03/20 Allergies Allergy/AdvReac Type Severity Reaction Status Date / Time amoxicillin AdvReac Diarrhea Verified 06/03/20 21:20 Review of Systems ROS Statement: Those systems with pertinent positive or pertinent negative responses have been documented in the HPI. ROS Other: All systems not noted in ROS Statement are negative. Past Medical History Past Medical History: Cancer, Heart Failure, COPD, CVA/TIA, Fibromyalgia, Osteoarthritis (OA), Thyroid Disorder Additional Past Medical History / Comment(s): 2011 carbon monoxide posioning(caused a stroke), breast cancer, "low blood pressure, they have trouble getting a blood pressure reading on my left arm", recent tx for bronchitits, osteoporosis. History of Any Multi-Drug Resistant Organisms: None Reported Past Surgical History: Breast Surgery, Cholecystectomy, Heart Catheterization, Heart Catheterization With Stent Additional Past Surgical History / Comment(s): Thyroidectomy, right breast lumpectomy. stent to LAD Past Anesthesia/Blood Transfusion Reactions: No Reported Reaction Date of Last Stent Placement:: 09/20/18 Past Psychological History: Anxiety Smoking Status: Never smoker Past Alcohol Use History: Rare Past Drug Use History: None Reported - Past Family History Sister(s) Family Medical History: Cancer General Exam - General Exam Comments Initial Comments: GENERAL: Patient is well-developed and well-nourished. Patient is nontoxic and in no acute distress. HEAD: Atraumatic, normocephalic. EYES: Pupils equal round and reactive to light, extraocular movements intact, sclera anicteric, conjunctiva are normal. Eyelids were unremarkable. ENT: TMs normal, nares patent, oropharynx clear without exudates. Moist mucous membranes. NECK: Normal range of motion, supple without lymphadenopathy or JVD. LUNGS: Unlabored respirations. Breath sounds clear to auscultation bilaterally and equal. No wheezes rales or rhonchi. HEART: Regular rate and rhythm without murmurs, rubs or gallops. ABDOMEN: Soft, nontender, normoactive bowel sounds. No guarding, no rebound. No masses appreciated. : Deferred MUSCULOSKELETAL: Normal extremities with adequate strength and normal range of motion, no pitting or edema. No clubbing or cyanosis. NEUROLOGICAL: Patient is alert and oriented x 3. Motor and sensory are also intact. Cranial nerves II through XII grossly intact. Symmetrical smile. Normal speech, normal gait. PSYCH: Normal mood, normal affect. SKIN: Warm, Dry, normal turgor, no rashes. Patient has a small 0.5 cm ganglionic cyst like on her right wrist, it is erythematous, painful to the touch. This does feel function went, soft like a cyst. There is no spreading erythema. She does have some swelling of her right hand and forearm. Patient does have some bruising noted to the dorsal aspect of her left hand. Limitations: no limitations Course Vital Signs 06/03/20 18:08 Temperature 97.5 F L Pulse Rate 76 Respiratory 17 Rate Blood Pressure 117/75 O2 Sat by Pulse 95 Oximetry Medical Decision Making - Medical Decision Making Patient is a 79-year-old female sent in from Dr. Cain office for possible abscess of her right hand, forearm. She's had some discomfort, swelling for the last 2 weeks, there is a painful bump on the dorsal aspect of her right wrist, consistent with a ganglion cyst. Some bruising of her left dorsal hand that started 2 days ago. No fevers, her vitals are stable. X-ray of the right wrist shows no evidence of osteomyelitis. Labs show a normal white count, CRP is 11. Patient will be started on clindamycin for possible infected cyst. We'll also give her referral to orthopedics for follow-up if symptoms continue. She can also follow up with her PCP. Patient and family are in agreement with this plan of care. Return parameters were discussed with them and they verbalized understanding. Case discussed with Dr. Robertson. - Lab Data Result diagrams: 06/03/20 20:59 06/03/20 20:59 Lab Results 06/03/20 06/03/20 06/03/20 Range/Units 20:59 20:59 20:59 WBC 5.7 (3.8-10.6) k/uL RBC 4.39 (3.80-5.40) m/uL Hgb 13.4 (11.4-16.0) gm/dL Hct 38.5 (34.0-46.0) % MCV 87.8 (80.0-100.0) fL MCH 30.5 (25.0-35.0) pg MCHC 34.8 (31.0-37.0) g/dL RDW 12.9 (11.5-15.5) % Plt Count 218 (150-450) k/uL MPV 8.4 Neutrophils % 56 % Lymphocytes % 32 % Monocytes % 5 % Eosinophils % 4 % Basophils % 1 % Neutrophils # 3.2 (1.3-7.7) k/uL Lymphocytes # 1.8 (1.0-4.8) k/uL Monocytes # 0.3 (0-1.0) k/uL Eosinophils # 0.2 (0-0.7) k/uL Basophils # 0.1 (0-0.2) k/uL ESR 15 (0-20) mm/hr PT 10.8 (9.0-12.0) sec INR 1.0 (<1.2) APTT 27.3 (22.0-30.0) sec Sodium 140 (137-145) mmol/L Potassium 4.6 (3.5-5.1) mmol/L Chloride 104 (98-107) mmol/L Carbon Dioxide 29 (22-30) mmol/L Anion Gap 7 mmol/L BUN 15 (7-17) mg/dL Creatinine 0.81 (0.52-1.04) mg/dL Est GFR (CKD-EPI)AfAm 80 (>60 ml/min/1.73 sqM) Est GFR (CKD-EPI)NonAf 70 (>60 ml/min/1.73 sqM) Glucose 94 (74-99) mg/dL Calcium 9.1 (8.4-10.2) mg/dL Total Bilirubin 0.7 (0.2-1.3) mg/dL AST 39 H (14-36) U/L ALT 10 (4-34) U/L Alkaline Phosphatase 36 L (38-126) U/L C-Reactive Protein 11.2 H (<10.0) mg/L Total Protein 7.2 (6.3-8.2) g/dL Albumin 4.2 (3.5-5.0) g/dL Disposition Clinical Impression: Ganglion cyst of dorsum of right wrist, Cellulitis of right hand Disposition: HOME SELF-CARE Condition: Stable Instructions (If sedation given, give patient instructions): Ganglion Cysts (ED) Additional Instructions: Please return to the Emergency Department if symptoms worsen or any other concerns. Take antibiotics as prescribed. Follow-up with orthopedics if symptoms persist. Prescriptions: Clindamycin HCl 300 mg PO Q6HR 7 Days #28 cap Is patient prescribed a controlled substance at d/c from ED?: No Referrals: Callum Cain MD [Primary Care Provider] - 1-2 days Laci Bonilla DO [Doctor of Osteopathic Medicine] - 1-2 days Time of Disposition: 22:23
[2020-06-03 21:52] LABS: Partial Thromboplastin Time 27.3 sec (22.0-30.0); Prothrombin Time 10.8 sec (9.0-12.0)
[2020-06-03 22:06] LABS: Erythrocyte Sedimentation Rate 15 mm/hr (0-20)
[2020-06-03 22:37] VITALS: BP 122/79; PULSE 79; RESP 18
== END 2020-06-03 22:37 | disposition home or self-care (01) ==
LOC: EC 16:54
DX: M67.431 Ganglion, right wrist (principal); L03.113 Cellulitis of right upper limb; M19.90 Unspecified osteoarthritis, unspecified site; E07.9 Disorder of thyroid, unspecified; M79.641 Pain in right hand; J44.9 Chronic obstructive pulmonary disease, unspecified; Z86.73 Personal history of transient ischemic attack (TIA), and cerebral infarction without residual deficits; Z85.3 Personal history of malignant neoplasm of breast; Z95.5 Presence of coronary angioplasty implant and graft; Z90.49 Acquired absence of other specified parts of digestive tract
CPT/HCPCS: 36415; 80053; 85025; 85610; 85652; 85730; 86140; 99283

== ENCOUNTER 2021-09-10 18:11 | Inpatient (IN) | payer MEDICARE, OTHER ==
[2021-09-10] MEDS ORDERED: cefTRIAXone IN SWFI 1,000 MG/10 ML SYRINGE IVP STA (18:50)
[2021-09-10] MEDS ORDERED: VANCOMYCIN IV PER PHARMACY 1 EACH MISC MISCELLANE PRN (18:50)
[2021-09-10] MEDS ORDERED: VANCOMYCIN 1,000 MG in SODIUM CHLORIDE 0.9% 250 ML IVPB STA ×2 (18:51→20:16)
[2021-09-10] MEDS ORDERED: ACETAMINOPHEN TAB 325 MG TAB PO PRN (18:58)
[2021-09-10] MEDS ORDERED: NALOXONE 0.4 MG/ML 1 ML VIAL IV PRN (18:58)
--- NOTE | 2021-09-10 19:27 | ED ---
General Adult HPI - General Chief complaint: Extremity Problem,Nontraumatic Stated complaint: cellulitis R arm Time Seen by Provider: 09/10/21 18:41 Source: patient, RN notes reviewed, old records reviewed Mode of arrival: ambulatory Limitations: no limitations - History of Present Illness Initial comments: 80-year-old female presenting with pain and swelling in the right arm. Patient has been treated for a right arm cellulitis over the past 2 weeks including an inpatient stay at outside hospital for IV antibiotics. She's been on Keflex for the past one week. These antibiotics finished yesterday and she was evaluated by the primary care physician today and sent to the emergency department for reevaluation and admission for continued IV antibiotics per she has not had a fever. She is a nondiabetic. The erythema and swelling has not significantly improved on oral antibiotics. - Related Data Home Medications Medication Instructions Recorded Confirmed Acetaminophen Tab [Tylenol] 650 mg PO Q6H PRN 06/24/18 06/03/20 Alendronate Sodium 70 mg PO WE 06/24/18 06/03/20 Clopidogrel [Plavix] 75 mg PO DAILY 06/24/18 06/03/20 DULoxetine HCL [Cymbalta] 20 mg PO BID 06/24/18 06/03/20 Levothyroxine Sodium [Synthroid] 50 mcg PO QAM 06/24/18 06/03/20 rOPINIRole HCL [Requip] 2 mg PO HS 06/24/18 06/03/20 traZODone HCL 50 mg PO HS 06/24/18 06/03/20 Aspirin [Adult Low Dose Aspirin EC] 81 mg PO DAILY 09/05/18 06/03/20 Gabapentin [Neurontin] 300 mg PO HS 09/05/18 06/03/20 Losartan [Cozaar] 50 mg PO DAILY 09/05/18 06/03/20 Brimonidine Tartrate [Alphagan P 1 drops BOTH EYES BID 06/03/20 06/03/20 0.2% Ophth Soln] Famotidine 20 mg PO BID 06/03/20 06/03/20 Furosemide [Lasix] 20 mg PO DAILY 06/03/20 06/03/20 Rosuvastatin Calcium 20 mg PO HS 06/03/20 06/03/20 amLODIPine [Norvasc] 5 mg PO HS 06/03/20 06/03/20 clonazePAM [KlonoPIN] 1 mg PO BID 06/03/20 06/03/20 Previous Rx's Medication Instructions Recorded carvediloL [Coreg] 6.25 mg PO AC-BID #180 tab 09/21/18 clindamycin HCL [Clindamycin HCl] 300 mg PO Q6HR 7 Days #28 cap 06/03/20 Allergies Allergy/AdvReac Type Severity Reaction Status Date / Time amoxicillin AdvReac Diarrhea Verified 09/10/21 18:16 Review of Systems ROS Statement: Those systems with pertinent positive or pertinent negative responses have been documented in the HPI. ROS Other: All systems not noted in ROS Statement are negative. Past Medical History Past Medical History: Cancer, Heart Failure, COPD, CVA/TIA, Fibromyalgia, Osteoarthritis (OA), Thyroid Disorder Additional Past Medical History / Comment(s): 2010 carbon monoxide posioning(caused a stroke), breast cancer, "low blood pressure, they have trouble getting a blood pressure reading on my left arm", recent tx for bronchitits, osteoporosis. History of Any Multi-Drug Resistant Organisms: None Reported Past Surgical History: Breast Surgery, Cholecystectomy, Heart Catheterization, Heart Catheterization With Stent Additional Past Surgical History / Comment(s): Thyroidectomy, right breast lumpectomy. stent to LAD, cataracts Past Anesthesia/Blood Transfusion Reactions: No Reported Reaction Date of Last Stent Placement:: 09/20/18 Past Psychological History: Anxiety Smoking Status: Never smoker Past Alcohol Use History: Rare Past Drug Use History: None Reported - Past Family History Sister(s) Family Medical History: Cancer General Exam Limitations: no limitations General appearance: alert, in no apparent distress Head exam: Present: atraumatic, normocephalic Eye exam: Present: normal appearance, PERRL ENT exam: Present: normal exam Neck exam: Present: normal inspection. Absent: tenderness, meningismus Respiratory exam: Present: normal lung sounds bilaterally. Absent: respiratory distress, wheezes Cardiovascular Exam: Present: regular rate, normal rhythm GI/Abdominal exam: Present: soft. Absent: distended, tenderness Extremities exam: Present: other (Significant soft tissue swelling and induration throughout the right upper extremity to the axilla. There is warmth. There is no drainable abscess appreciated. No skin breakdown.) Neurological exam: Present: alert, oriented X3, CN II-XII intact. Absent: motor sensory deficit Psychiatric exam: Present: normal affect, normal mood Skin exam: Present: warm, dry Course Vital Signs 09/10/21 18:13 Temperature 97.7 F Pulse Rate 101 H Respiratory 20 Rate Blood Pressure 150/80 O2 Sat by Pulse 100 Oximetry Medical Decision Making - Medical Decision Making 80-year-old female with significant swelling, erythema and induration of the right arm from the wrist to the axilla. I do not see a drainable abscess or skin breakdown. The elbow joint has normal range of motion without pain. Patient has not had fever. Her symptoms are not improving on oral antibiotics. She'll be admitted for IV antibiotics. I did obtain laboratory testing, blood cultures, and ultrasound of the right upper extremity. These results are pending. She will be admitted to [facility] Disposition Clinical Impression: Cellulitis Disposition: ADMITTED IP TO THIS HOSP Condition: Stable Is patient prescribed a controlled substance at d/c from ED?: No Time of Disposition: 19:27
[2021-09-10 20:04] LABS: Basophils # (A) 0.1 k/uL (0-0.2); Basophils % (A) 1 %; Eosinophils # (A) 0.2 k/uL (0-0.7); Eosinophils % (A) 3 %; HCT 43.5 % (34.0-46.0); HGB 13.9 gm/dL (11.4-16.0); Lymphocytes # (A) 1.7 k/uL (1.0-4.8); Lymphocytes % (A) 26 %; MCH 29.3 pg (25.0-35.0); MCHC 31.9 g/dL (31.0-37.0); MCV 91.8 fL (80.0-100.0); Mean Platelet Volume 8.2; Monocytes # (A) 0.3 k/uL (0-1.0); Monocytes % (A) 4 %; Neutrophils # (A) 4.2 k/uL (1.3-7.7); Neutrophils % (A) 63 %; Platelet Count 261 k/uL (150-450); RBC 4.74 m/uL (3.80-5.40); RDW 12.6 % (11.5-15.5); WBC 6.6 k/uL (3.8-10.6)
[2021-09-10 20:12] LABS: Albumin 3.9 g/dL (3.5-5.0); Calcium 8.8 mg/dL (8.4-10.2); Magnesium 2.4 mg/dL (1.6-2.3); Potassium 4.3 mmol/L (3.5-5.1); Total Bilirubin 0.3 mg/dL (0.2-1.3); Total Protein 6.7 g/dL (6.3-8.2)
[2021-09-10] MEDS: SODIUM CHLORIDE 0.9% 1,000 ML IV SCH (20:16)
--- NOTE | 2021-09-10 20:25 | US ---
EXAMINATION TYPE: US venous doppler duplex UE RT DATE OF EXAM: 09/10/2021 COMPARISON: NONE CLINICAL HISTORY: swelling. Right arm swelling SIDE PERFORMED: Right Right Arm: Appears negative for DVT Left Arm: IMPRESSION: No evidence of right arm deep vein thrombosis.
[2021-09-11] MEDS: SODIUM CHLORIDE 0.9% 1,000 ML IV SCH (09:19)
[2021-09-11] MEDS ORDERED: VANCOMYCIN 1,000 MG in SODIUM CHLORIDE 0.9% 250 ML IVPB SCH (12:00)
[2021-09-11 13:19] VITALS: BMI 24.0
[2021-09-11] MEDS: PANTOPRAZOLE 40 MG TABLET PO SCH (13:43)
[2021-09-11] MEDS: LEVOTHYROXINE 50 MCG TAB PO SCH (13:43)
[2021-09-11] MEDS: amLODIPine 5 MG TAB PO SCH (13:43)
--- NOTE | 2021-09-11 15:58 | CT ---
EXAMINATION TYPE: CT upper extremity RT w con CT DLP: 859.2 mGycm, Automated exposure control for dose reduction was used. DATE OF EXAM: 09/11/2021 3:41 PM COMPARISON: None CLINICAL INDICATION:Female, 80 years old with history of abscess, Right arm redness and pain. TECHNIQUE: Axial images were obtained of the right upper extremity without the use of IV contrast. A dditional coronal and sagittal reformatted images and soft tissue and bone window were obtained for r eview. 3-D reconstruction was created on a separate workstation. FINDINGS: There is streaky edema subcutaneous edema seen throughout the right upper extremity with sk in thickening. Findings are most pronounced in the forearm and extending up into the arm to a lesser extent. No definitive organizing peripherally enhancing fluid collection identified. The arterial vas culature is patent. Superficial venous vessels within the cephalic and basilic veins appear patent. O sseous structures are intact. There is low-attenuation to the liver parenchyma. Mild centrilobular emphysema changes. There is aort ic stent of the left subclavian which appears intact patent. There is a anatomic variant for vessel a ortic arch. The gallbladder surgically absent. Right renal cysts are present. IMPRESSION: Streaky edema throughout the right upper extremity without definitive organizing peripherally enhanci ng fluid collection suggest abscess. Correlate for cellulitis.
[2021-09-11] MEDS: carvediloL 6.25 MG TAB PO SCH (16:25)
[2021-09-11] MEDS: ATORVASTATIN 40 MG TAB PO SCH (20:08)
[2021-09-11] MEDS: HEPARIN SODIUM,PORCINE/PF 5,000 UNIT/0.5 ML SYRINGE SQ SCH (20:09)
[2021-09-11] MEDS: DULoxetine HCL 20 MG CAPSULE.DR PO SCH (20:09)
[2021-09-11] MEDS: traZODone HCL 50 MG TAB PO SCH (22:32)
[2021-09-11] MEDS: clonazePAM 1 MG TAB PO PRN (22:33)
--- NOTE | 2021-09-11 22:44 | P.CONS ---
History of Present Illness - Reason for Consult Consult date: 09/11/21 Cellulitis Requesting physician: Oscar Diallo - Chief Complaint Right upper extremity swelling and redness x few days - History of Present Illness Patient is a 80-year-old female with a past medical history significant for right-sided mastectomy with a chronic lymphedema and a history of recurrent right upper extremity cellulitis patient was recently admitted at [facility] with the patient was treated for right upper extremity cellulitis with IV cefazolin subsequent discharged home on oral Keflex as the patient did have clinical improvement patient now presenting to the [facility] ER last night concerning for increasing swelling and redness that apparently has been getting worse over the last few days patient complaining of pain to the right upper extremity to be more of a dull aching to sharp about 6-7 out of 10 no radiation with associated swelling and redness patient currently do not have any open wound or any drainage on presentation to the hospital patient was afebrile and no fever have been recorded subsequently patient did have a normal white count kidney function has been normal blood cultures appears curren tly pending patient did have a Doppler ultrasound that was negative for DVT patient was started on vancomycin infectious disease was consulted for further management of antibiotic therapy Review of Systems Positive point has been mentioned in the HPI rest of the systems are negative Past Medical History Past Medical History: Cancer, Heart Failure, COPD, CVA/TIA, Fibromyalgia, Osteoarthritis (OA), Thyroid Disorder Additional Past Medical History / Comment(s): 2010 carbon monoxide posioning(caused a stroke), breast cancer, "low blood pressure, they have trouble getting a blood pressure reading on my left arm", recent tx for bronchitits, osteoporosis. History of Any Multi-Drug Resistant Organisms: None Reported Past Surgical History: Breast Surgery, Cholecystectomy, Heart Catheterization, Heart Catheterization With Stent Additional Past Surgical History / Comment(s): Thyroidectomy, right breast lumpectomy. 2 stent to LAD, cataracts, cataract removal sx with permanent contact lenses. Past Anesthesia/Blood Transfusion Reactions: No Reported Reaction Date of Last Stent Placement:: 09/20/18 Smoking Status: Former smoker - Past Family History Sister(s) Family Medical History: Cancer Medications and Allergies Home Medications Medication Instructions Recorded Confirmed Type Alendronate Sodium 70 mg PO WE 06/24/18 09/10/21 History Clopidogrel [Plavix] 75 mg PO DAILY 06/24/18 09/10/21 History DULoxetine HCL [Cymbalta] 20 mg PO BID 06/24/18 09/10/21 History Levothyroxine Sodium [Synthroid] 50 mcg PO DAILY 06/24/18 09/10/21 History rOPINIRole HCL [Requip] 2 mg PO HS 06/24/18 09/10/21 History traZODone HCL 50 mg PO HS 06/24/18 09/10/21 History Losartan [Cozaar] 50 mg PO HS 09/05/18 09/10/21 History carvediloL [Coreg] 6.25 mg PO AC-BID #180 tab 09/21/18 09/10/21 Rx Furosemide [Lasix] 20 mg PO DAILY 06/03/20 09/10/21 History amLODIPine [Norvasc] 5 mg PO DAILY 06/03/20 09/10/21 History clonazePAM [KlonoPIN] 1 mg PO BID PRN 06/03/20 09/10/21 History Acetaminophen-Codeine 300-30mg 2 tab PO TID PRN 09/10/21 09/10/21 History [Tylenol w/codeine #3] Atorvastatin [Lipitor] 40 mg PO DIRECTED 09/10/21 09/10/21 History Magnesium 250 mg PO DAILY 09/10/21 09/10/21 History Multivitamins, Thera [Multivitamin 1 tab PO DAILY 09/10/21 09/10/21 History (formulary)] Omeprazole [PriLOSEC] 20 mg PO DAILY 09/10/21 09/10/21 History Vitamin E 400 unit PO DAILY 09/10/21 09/10/21 History Allergies Allergy/AdvReac Type Severity Reaction Status Date / Time amoxicillin AdvReac Diarrhea Verified 09/10/21 20:58 Physical Exam Vitals: Vital Signs Temp Pulse Pulse Resp BP BP Pulse Ox 09/11/21 07:15 98.0 F 98 17 131/68 97 09/11/21 02:20 98.4 F 79 17 134/71 93 L 09/10/21 22:00 98.4 F 82 18 126/69 92 L 09/10/21 20:24 78 18 158/69 93 L 09/10/21 18:13 97.7 F 101 H 20 150/80 100 Intake and Output 09/10/21 09/11/21 09/11/21 22:59 06:59 14:59 Other: Voiding Method Toilet # Voids 2 Weight 52.163 kg GENERAL DESCRIPTION: Elderly female lying in bed, no distress. No tachypnea or accessory muscle of respiration use. HEENT: Shows Pallor , no scleral icterus. Oral mucous membrane is dry. No pharyngeal erythema or thrush NECK: Trachea central, no thyromegaly. LUNGS: Unlabored breathing. Clear to auscultation anteriorly. No wheeze or crackle. HEART: S1, S2, regular rate and rhythm. No loud murmur ABDOMEN: Soft, no tenderness , guarding or rigidity, no organomegaly EXTREMITIES: Right upper extremity with diffuse swelling or redness or warmth and tender to touch SKIN: No rash, no masses palpable. NEUROLOGICAL: The patient is awake, alert, oriented x3, mood and affect normal. Results CBC & Chem 7: 09/12/21 07:13 09/12/21 07:13 Labs: Abnormal Lab Results - Last 24 Hours (Table) 09/10/21 09/10/21 Range/Units 19:50 19:50 Plasma Lactic Acid Haris <0.5 L (0.7-2.0) mmol/L Magnesium 2.4 H (1.6-2.3) mg/dL AST 42 H (14-36) U/L Assessment and Plan (1) Cellulitis Current Visit: Yes Status: Acute Code(s): L03.90 - CELLULITIS, UNSPECIFIED SNOMED Code(s): 507508737 Plan: 1patient with a history of recurrent right upper extremity cellulitis in this patient with underlying lymphedema with diffuse swelling redness likely streptococcal disease clinically not behaving as an abscess however we will obtain a CT of the right upper extremity to rule out any abscess or deep infection that may have led to failure of oral Keflex. 2we will apply Ladarius wrap to the right lower extremity to keep the swelling down and marked the area of the redness. 3discontinue vancomycin and start the patient cefazolin 2 g every 8 hours. 4check inflammatory markers. We will follow on clinical condition and cultures to further adjust medication if needed Thank you for this consultation will follow this patient along with you Time with Patient: Greater than 30
--- NOTE | 2021-09-11 23:41 | P.HPIM ---
History of Present Illness H&P Date: 09/11/21 Chief Complaint: Right hand swelling Patient is a 80-year-old female with a known history of COPD, history of CVA/TIA, fibromyalgia, osteoarthritis, hypothyroidism and history of breast cancer s/p lumpectomy, coronary artery disease with history of stent placement and previous history of smoking presents to ER with complaints of right upper extremity redness and swelling and not improving with oral antibiotic course. Patient was seen at [facility] and was on IV cefazolin which is changed to oral Keflex at discharge. Patient presented back to hospital due to swelling and redness not really getting better. Patient has been on oral Keflex for the past 1 week. Completed antibiotic course yesterday and was seen by primary care physician and sent to ER for IV antibiotics. On admission patient was tachycardic and respiration 20 pulse ox 100% on room air and blood pressure 150/80. Right upper extremity venous duplex scan is negative for DVT. Laboratory data show WBC 6.6 hemoglobin 13.9 and platelets 261 Sodium 140 potassium 4.3 chloride 106 bicarb is 20 BUN 16 and creatinine 0.88 magnesium 2.4 AST 42 ALT 14 and alk phos 78 Review of Systems Constitutional: Patient denies any fever or chills . Generalized weakness. Abdomen: Patient denied any nausea or vomiting or abd. pain Cardiovascular: Patient denies any chest pain or short of breath no palpitations. Respiratory: patient denied any cough is from production. No shortness of breath Neurologic: Patient denied any numbness or tingling headache. Musculoskeletal: Patient denies any complaints of joint swelling or deformity. Skin: Right hand redness and swelling and pain. Psychiatric: Negative Endocrine: No heat or cold intolerance. No recent weight gain. Genitourinary: No dysuria or hematuria. All other 14 point ROS negative except the above Past Medical History Past Medical History: Cancer, Heart Failure, COPD, CVA/TIA, Fibromyalgia, Osteoarthritis (OA), Thyroid Disorder Additional Past Medical History / Comment(s): 2011 carbon monoxide posioning(caused a stroke), breast cancer, "low blood pressure, they have trouble getting a blood pressure reading on my left arm", recent tx for bronchitits, osteoporosis. History of Any Multi-Drug Resistant Organisms: None Reported Past Surgical History: Breast Surgery, Cholecystectomy, Heart Catheterization, Heart Catheterization With Stent Additional Past Surgical History / Comment(s): Thyroidectomy, right breast lumpectomy. 2 stent to LAD, cataracts, cataract removal sx with permanent contact lenses. Past Anesthesia/Blood Transfusion Reactions: No Reported Reaction Date of Last Stent Placement:: 09/20/18 Smoking Status: Former smoker - Past Family History Sister(s) Family Medical History: Cancer Medications and Allergies Home Medications Medication Instructions Recorded Confirmed Type Alendronate Sodium 70 mg PO WE 06/24/18 09/10/21 History Clopidogrel [Plavix] 75 mg PO DAILY 06/24/18 09/10/21 History DULoxetine HCL [Cymbalta] 20 mg PO BID 06/24/18 09/10/21 History Levothyroxine Sodium [Synthroid] 50 mcg PO DAILY 06/24/18 09/10/21 History rOPINIRole HCL [Requip] 2 mg PO HS 06/24/18 09/10/21 History traZODone HCL 50 mg PO HS 06/24/18 09/10/21 History Losartan [Cozaar] 50 mg PO HS 09/05/18 09/10/21 History carvediloL [Coreg] 6.25 mg PO AC-BID #180 tab 09/21/18 09/10/21 Rx Furosemide [Lasix] 20 mg PO DAILY 06/03/20 09/10/21 History amLODIPine [Norvasc] 5 mg PO DAILY 06/03/20 09/10/21 History clonazePAM [KlonoPIN] 1 mg PO BID PRN 06/03/20 09/10/21 History Acetaminophen-Codeine 300-30mg 2 tab PO TID PRN 09/10/21 09/10/21 History [Tylenol w/codeine #3] Atorvastatin [Lipitor] 40 mg PO DIRECTED 09/10/21 09/10/21 History Magnesium 250 mg PO DAILY 09/10/21 09/10/21 History Multivitamins, Thera [Multivitamin 1 tab PO DAILY 09/10/21 09/10/21 History (formulary)] Omeprazole [PriLOSEC] 20 mg PO DAILY 09/10/21 09/10/21 History Vitamin E 400 unit PO DAILY 09/10/21 09/10/21 History Allergies Allergy/AdvReac Type Severity Reaction Status Date / Time amoxicillin AdvReac Diarrhea Verified 09/10/21 20:58 Physical Exam Vitals: Vital Signs Temp Pulse Pulse Resp BP BP Pulse Ox 09/11/21 07:15 98.0 F 98 17 131/68 97 09/11/21 02:20 98.4 F 79 17 134/71 93 L 09/10/21 22:00 98.4 F 82 18 126/69 92 L 09/10/21 20:24 78 18 158/69 93 L 09/10/21 18:13 97.7 F 101 H 20 150/80 100 Intake and Output 09/10/21 09/11/21 09/11/21 22:59 06:59 14:59 Other: Voiding Method Toilet # Voids 2 Weight 52.163 kg PHYSICAL EXAMINATION: Patient is lying in the bed comfortably, no acute distress, awake alert and oriented.. HEENT: Normocephalic. Neck is supple. Pupils reactive. Nostrils clear. Oral cavity is moist. Neck reveals no JVD, carotid bruits, or thyromegaly. CHEST EXAMINATION: Trachea is central. Symmetrical expansion. Lung beckwith clear to auscultation and percussion. CARDIAC: Normal S1, S2 with no gallops. No murmurs ABDOMEN: Soft. Bowel sounds present. Nontender. No organomegaly. No abdominal bruits. Extremities: Right upper extremity redness extending every forearm up to the axillary region. Swelling and mild tenderness. Warm to touch.. No clubbing or cyanosis Neurologically awake, alert, oriented x3 with well-coordinated movements. No focal deficits noted Skin: No rash or skin lesions. Psychiatric: Coperative. Nonsuicidal, anxious. Musculoskeletal: No joint swelling or deformity. Normal range of motion. Results CBC & Chem 7: 09/10/21 19:50 09/10/21 19:50 Labs: Abnormal Lab Results - Last 24 Hours (Table) 09/10/21 09/10/21 Range/Units 19:50 19:50 Plasma Lactic Acid Haris <0.5 L (0.7-2.0) mmol/L Magnesium 2.4 H (1.6-2.3) mg/dL AST 42 H (14-36) U/L Thrombosis Risk Factor Assmnt - DVT/VTE Prophylaxis DVT/VTE Prophylaxis: Pharmacologic Prophylaxis ordered - Choose All That Apply Any of the Below Risk Factors Present?: Yes Each Risk Factor Represents 3 Points: Age 75 years or older Thrombosis Risk Factor Assessment Total Risk Factor Score: 3 Thrombosis Risk Factor Assessment Level: Moderate Risk Assessment and Plan Assessment: Right upper extremity cellulitis extending up to the axilla. Failed outpatient therapy. History of CVA/TIA History of right breast cancer status postlumpectomy Fibromyalgia Osteoarthritis Hypothyroidism Positive smoking DVT prophylaxis with heparin subcu Plan: Patient will be continued cefazolin. Was given a dose of vancomycin and ceftriaxone in the ER. Current home medications including Plavix and blood pressure medications. Follow culture reports. ID is on board. CT of the right upper EXTR to evaluate without any abscess. Continue to follow. Time with Patient: Greater than 30
[2021-09-12] MEDS: SODIUM CHLORIDE 0.9% 1,000 ML IV SCH ×2 (01:27→11:32)
[2021-09-12] MEDS: LEVOTHYROXINE 50 MCG TAB PO SCH (06:08)
[2021-09-12] MEDS: CLOPIDOGREL 75 MG TAB PO SCH (09:25)
[2021-09-12] MEDS: PANTOPRAZOLE 40 MG TABLET PO SCH (09:26)
[2021-09-12] MEDS: DULoxetine HCL 20 MG CAPSULE.DR PO SCH ×2 (09:26→22:00)
[2021-09-12] MEDS: HEPARIN SODIUM,PORCINE/PF 5,000 UNIT/0.5 ML SYRINGE SQ SCH ×2 (09:26→22:01)
[2021-09-12] MEDS: carvediloL 6.25 MG TAB PO SCH ×2 (09:26→16:27)
[2021-09-12] MEDS: amLODIPine 5 MG TAB PO SCH (09:26)
[2021-09-12] MEDS: clonazePAM 1 MG TAB PO PRN (09:31)
[2021-09-12 10:52] LABS: Basophils # (A) 0.06 X 10*3/uL (0.00-0.10); Eosinophils # (A) 0.21 X 10*3/uL (0.04-0.35); Eosinophils % (A) 3.5 %; HCT 42.5 % (37.2-46.3); HGB 13.3 g/dL (12.0-15.0); Immature Grans, Automated 0.2 %; Lymphocytes # (A) 1.71 X 10*3/uL (0.90-5.00); Lymphocytes % (A) 28.1 %; MCH 28.9 pg (27.0-32.0); MCHC 31.3 g/dL (32.0-37.0); MCV 92.2 fL (80.0-97.0); Mean Platelet Volume 11.8 fL (9.5-12.2); Monocytes # (A) 0.45 X 10*3/uL (0.20-1.00); Monocytes % (A) 7.4 %; NRBC Per 100 WBC 0 /100 WBCS (0.0-0.0); Neutrophils # (A) 3.64 X 10*3/uL (1.80-7.70); Neutrophils % (A) 59.8 %; Platelet Count 252 X 10*3/uL (140-440); RBC 4.61 X 10*6/uL (4.10-5.20); RDW 12.6 % (11.5-14.5); WBC 6.08 X 10*3/uL (4.50-10.00)
[2021-09-12 11:12] LABS: African American GFR (CKD) 80.7 (60.0-200.0); BUN/Creat Ratio 12.13 Ratio (12.00-20.00); Blood Urea Nitrogen 9.7 mg/dL (9.0-27.0); Calcium 8.3 mg/dL (8.7-10.3); Carbon Dioxide 21.7 mmol/L (20.0-27.5); Chloride 110 mmol/L (96-109); Glucose 99 mg/dL (70-110); Non-African American GFR(CKD) 69.6 (60.0-200.0); Sodium 143 mmol/L (135-145)
[2021-09-12 11:35] LABS: C Reactive Protein <0.30 mg/dL (0.00-0.80)
--- NOTE | 2021-09-12 13:53 | CDI ---
Documentation Clarification Form Date: 09/12/2021 01:43:10 PM From: Mona Zelaya Admit Date: 09/10/2021 06:58:00 PM Patient Name: Olena Cool Visit Number: [id number] Discharge Date: ATTENTION: The Clinical Documentation Specialists (CDI) and [facility] Coding Staff appreciate your assistance in clarifying documentation. Please respond to the clarification below the line at the bottom and electronically sign. The CDI & [facility] Coding staff will review the response and follow-up if needed. Please note: Queries are made part of the Legal Health Record. If you have any questions, please contact the author of this message via ITS. Dr. Isabella Finley Your patient has the documented diagnosis of unspecified CHF 09/11, H&P. Additional information regarding the type, acuity of CHF is requested. History/Risk Factors: 80-year-old female presents to the ED for right upper extremity redness and swelling not improving with oral antibiotics. Medical history: CVA/TIA, Heart failure and Breast cancer. 09/11, H&P Clinical Indicators: VS/Pulse OX: 09/10 B/P 150/80; HR 101; Temp 97.7 F Oral; RR 20; SpO2 100% room air Echocardiogram Results: 09/07/18 EF 25-30% mild mitral regurgitation; mild tricuspid regurgitation Home medications: H&P, 09/11 Lasix po daily; Coreg po AC BID Treatment: 09/11 Coreg AC BID JAY In your professional opinion, can you please clarify the [acuity and type] of CHF if known? [ x ] Chronic Systolic Heart Failure (reduced EF) [ ] Other, please specify [ ] Unable to determine (Template Last Revised: March 2020) MTDD
--- NOTE | 2021-09-12 16:36 | P.PN ---
Subjective Progress Note Date: 09/12/21 Principal diagnosis: Right upper extremity cellulitis Patient is a 80-year-old female with a past medical history significant for right-sided mastectomy with a chronic lymphedema and a history of recurrent right upper extremity cellulitis patient was recently admitted at [facility] with the patient was treated for right upper extremity cellulitis with IV cefazolin subsequent discharged home on oral Keflex as the patient did have clinical improvement patient now presenting to the [facility] ER last night concerning for increasing swelling and redness with concern for recurrent cellulitis patient did have a CT of the right upper extremity ne gative for any abscess. On today's evaluation data 09/12/2021, the patient denies having any fever or chills, the patient right upper extremity swelling and redness is slightly decreased patient currently do not have a report wound or any drainage, patient denies any chest pain or shortness of breath or cough no abdominal pain or diarrhea Objective - Vital Signs Vital signs: Vital Signs Temp 98.2 F 09/12/21 14:00 Pulse 83 09/12/21 14:00 Resp 18 09/12/21 14:00 BP 136/91 09/12/21 14:00 Pulse Ox 97 09/12/21 14:00 FiO2 Intake & Output 09/11/21 09/12/21 09/12/21 18:59 06:59 18:59 Weight 52.163 kg Other: Voiding Method Toilet Toilet # Voids 6 1 # Bowel Movements 1 - Exam GENERAL DESCRIPTION: An elderly female lying in bed in no distress RESPIRATORY SYSTEM: Unlabored breathing , decreased breath sounds at bases HEART: S1 S2 regular rate and rhythm , ABDOMEN: Soft , no tenderness EXTREMITIES: Right upper extremity swelling redness slightly decreased - Labs CBC & Chem 7: 09/12/21 07:13 09/12/21 07:13 Labs: Abnormal Lab Results - Last 24 Hours (Table) 09/12/21 09/12/21 Range/Units 07:13 07:13 MCHC 31.3 L (32.0-37.0) g/dL Chloride 110 H (96-109) mmol/L Calcium 8.3 L (8.7-10.3) mg/dL Microbiology - Last 24 Hours (Table) 09/10/21 19:45 Blood Culture - Preliminary Blood No Growth after 24 hours 09/10/21 19:30 Blood Culture - Preliminary Blood No Growth after 24 hours Assessment and Plan (1) Cellulitis Current Visit: Yes Status: Acute Code(s): L03.90 - CELLULITIS, UNSPECIFIED SNOMED Code(s): 436911056 Plan: 1patient with a history of recurrent right upper extremity cellulitis in this patient with underlying lymphedema with diffuse swelling redness likely streptococcal disease clinically not behaving as an abscess however we will obtain a CT of the right upper extremity to rule out any abscess or deep in fection that may have led to failure of oral Keflex. 2we will apply Ladarius wrap to the right lower extremity to keep the swelling down and marked the area of the redness. 3CT of the right upper extremity was negative for any abscess 4patient seemed to have a some clinical improvement and will continue with cefazolin and monitor clinical course closely Time with Patient: Less than 30
[2021-09-12] MEDS: traZODone HCL 50 MG TAB PO SCH (22:00)
[2021-09-12] MEDS: ATORVASTATIN 40 MG TAB PO SCH (22:00)
[2021-09-13] MEDS: LEVOTHYROXINE 50 MCG TAB PO SCH (05:59)
[2021-09-13] MEDS: DULoxetine HCL 20 MG CAPSULE.DR PO SCH ×2 (08:59→20:12)
[2021-09-13] MEDS: amLODIPine 5 MG TAB PO SCH (08:59)
[2021-09-13] MEDS: CLOPIDOGREL 75 MG TAB PO SCH (08:59)
[2021-09-13] MEDS: carvediloL 6.25 MG TAB PO SCH ×2 (08:59→16:10)
[2021-09-13] MEDS: HEPARIN SODIUM,PORCINE/PF 5,000 UNIT/0.5 ML SYRINGE SQ SCH ×2 (08:59→20:12)
[2021-09-13] MEDS: PANTOPRAZOLE 40 MG TABLET PO SCH (08:59)
[2021-09-13] MEDS: clonazePAM 1 MG TAB PO PRN (09:23)
[2021-09-13] MEDS ORDERED: CALAMINE/ZINC OXIDE LOTION 177 ML BTL TOPICAL PRN (15:07)
--- NOTE | 2021-09-13 17:29 | P.PN ---
Subjective Progress Note Date: 09/13/21 Principal diagnosis: Right upper extremity cellulitis Patient is a 80-year-old female with a past medical history significant for right-sided mastectomy with a chronic lymphedema and a history of recurrent right upper extremity cellulitis patient was recently admitted at [facility] with the patient was treated for right upper extremity cellulitis with IV cefazolin subsequent discharged home on oral Keflex as the patient did have clinical improvement patient now presenting to the [facility] ER last night concerning for increasing swelling and redness with concern for recurrent cellulitis patient did have a CT of the right upper extremity ne gative for any abscess. On today's evaluation data 09/13/2021, the patient remains to be afebrile, the patient right upper extremity swelling and redness has decreased in intensity, the patient denies having any pain to the right upper extremity, denies any chest pain shortness of breath or cough no abdominal pain or diarrhea Objective - Vital Signs Vital signs: Vital Signs Temp 97.5 F L 09/13/21 14:00 Pulse 84 09/13/21 14:00 Resp 18 09/13/21 14:00 BP 145/72 09/13/21 14:00 Pulse Ox 98 09/13/21 14:00 FiO2 Intake & Output 09/12/21 09/13/21 09/13/21 18:59 06:59 18:59 Other: Voiding Method Toilet # Voids 4 5 # Bowel Movements 0 - Exam GENERAL DESCRIPTION: An elderly female lying in bed in no distress RESPIRATORY SYSTEM: Unlabored breathing , decreased breath sounds at bases HEART: S1 S2 regular rate and rhythm , ABDOMEN: Soft , no tenderness EXTREMITIES: Right upper extremity swelling redness has decreased intensity - Labs CBC & Chem 7: 09/12/21 07:13 09/12/21 07:13 Labs: Microbiology - Last 24 Hours (Table) 09/10/21 19:45 Blood Culture - Preliminary Blood No Growth after 48 hours 09/10/21 19:30 Blood Culture - Preliminary Blood No Growth after 48 hours Assessment and Plan (1) Cellulitis Current Visit: Yes Status: Acute Code(s): L03.90 - CELLULITIS, UNSPECIFIED SNOMED Code(s): 922203895 Plan: 1patient with a history of recurrent right upper extremity cellulitis in this patient with underlying lymphedema with diffuse swelling redness likely streptococcal disease clinically not behaving as an abscess however we will obtain a CT of the right upper extremity to rule out any abscess or deep infection that may have led to failure of oral Keflex. 2RN has been advised again to apply Ladarius wrap to the right lower extremity to keep the swelling down and marked the area of the redness. 3CT of the right upper extremity was negative for any abscess 4patient has shown clinical improvement and will continue cefazolin for another 24-48 hour before transitioning to oral antibiotics Time with Patient: Less than 30
[2021-09-13] MEDS: traZODone HCL 50 MG TAB PO SCH (20:12)
[2021-09-13] MEDS: ATORVASTATIN 40 MG TAB PO SCH (20:12)
[2021-09-14] MEDS: LEVOTHYROXINE 50 MCG TAB PO SCH (05:37)
[2021-09-14] MEDS: amLODIPine 5 MG TAB PO SCH (09:29)
[2021-09-14] MEDS: HEPARIN SODIUM,PORCINE/PF 5,000 UNIT/0.5 ML SYRINGE SQ SCH ×2 (09:29→21:05)
[2021-09-14] MEDS: PANTOPRAZOLE 40 MG TABLET PO SCH (09:29)
[2021-09-14] MEDS: carvediloL 6.25 MG TAB PO SCH ×2 (09:29→16:54)
[2021-09-14] MEDS: DULoxetine HCL 20 MG CAPSULE.DR PO SCH ×2 (09:29→21:05)
[2021-09-14] MEDS: CLOPIDOGREL 75 MG TAB PO SCH (09:29)
[2021-09-14] MEDS: clonazePAM 1 MG TAB PO PRN ×2 (09:40→21:05)
--- NOTE | 2021-09-14 17:33 | P.PN ---
Subjective Progress Note Date: 09/14/21 Principal diagnosis: Right upper extremity cellulitis Patient is a 80-year-old female with a past medical history significant for right-sided mastectomy with a chronic lymphedema and a history of recurrent right upper extremity cellulitis patient was recently admitted at [facility] with the patient was treated for right upper extremity cellulitis with IV cefazolin subsequent discharged home on oral Keflex as the patient did have clinical improvement patient now presenting to the [facility] ER last night concerning for increasing swelling and redness with concern for recurrent cellulitis patient did have a CT of the right upper extremity ne gative for any abscess. On today's evaluation data 09/14/2021, the patient denies any fever or chills, the patient right upper extremity swelling and redness has decreased in intensity, the patient denies having any pain to the right upper extremity however is complaining of some itching and seemed to have some relief with the calmoseptine lotion, denies any chest pain shortness of breath or cough no abdominal pain or diarrhea Objective - Vital Signs Vital signs: Vital Signs Temp 98.8 F 09/14/21 14:00 Pulse 89 09/14/21 14:00 Resp 16 09/14/21 14:00 BP 155/73 09/14/21 14:00 Pulse Ox 96 09/14/21 14:00 FiO2 Intake & Output 09/13/21 09/14/21 09/14/21 18:59 06:59 18:59 Intake Total 1080 Balance 1080 Intake: Oral 1080 Other: Voiding Method Toilet Toilet # Voids 3 3 5 # Bowel Movements 1 1 - Exam GENERAL DESCRIPTION: An elderly female lying in bed in no distress RESPIRATORY SYSTEM: Unlabored breathing , decreased breath sounds at bases HEART: S1 S2 regular rate and rhythm , ABDOMEN: Soft , no tenderness EXTREMITIES: Right upper extremity swelling redness has decreased, less induration no pulmonary wound or any drainage - Labs CBC & Chem 7: 09/12/21 07:13 09/12/21 07:13 Labs: Microbiology - Last 24 Hours (Table) 09/10/21 19:45 Blood Culture - Preliminary Blood No Growth after 72 hours 09/10/21 19:30 Blood Culture - Preliminary Blood No Growth after 72 hours Assessment and Plan (1) Cellulitis Current Visit: Yes Status: Acute Code(s): L03.90 - CELLULITIS, UNSPECIFIED SNOMED Code(s): 857781721 Plan: 1patient with a history of recurrent right upper extremity cellulitis in this patient with underlying lymphedema with diffuse swelling redness likely streptococcal disease clinically not behaving as an abscess however we will obtain a CT of the right upper extremity to rule out any abscess or deep infection that may have led to failure of oral Keflex. 2CT of the right upper extremity was negative for any abscess 4patient has shown clinical improvement and will continue cefazolin for another 24 hrs before transitioning to oral Keflex patient unable to tolerate Ladarius wrap which will be discontinued Time with Patient: Less than 30
[2021-09-14] MEDS: traZODone HCL 50 MG TAB PO SCH (21:05)
[2021-09-14] MEDS: ATORVASTATIN 40 MG TAB PO SCH (21:05)
--- NOTE | 2021-09-14 23:46 | P.PN ---
Subjective Progress Note Date: 09/13/21 Patient is a 80-year-old female with a known history of COPD, history of CVA/TIA, fibromyalgia, osteoarthritis, hypothyroidism and history of breast cancer s/p lumpectomy, coronary artery disease with history of stent placement and previous history of smoking presents to ER with complaints of right upper extremity redness and swelling and not improving with oral antibiotic course. Patient was seen at [facility] and was on IV cefazolin which is changed to oral Keflex at discharge. Patient presented back to hospital due to swelling and redness not really getting better. Patient has been on oral Keflex for the past 1 week. Completed antibiotic course yesterday and was seen by primary care physician and sent to ER for IV antibiotics. On admission patient was tachycardic and respiration 20 pulse ox 100% on room air and blood pressure 150/80. Right upper extremity venous duplex scan is negative for DVT. Laboratory data show WBC 6.6 hemoglobin 13.9 and platelets 261 Sodium 140 potassium 4.3 chloride 106 bicarb is 20 BUN 16 and creatinine 0.88 magnesium 2.4 AST 42 ALT 14 and alk phos 78 09/12/2021 Patient is currently resting in bed. Awake alert oriented x3. Right upper extremity still swollen and indurated. He is afebrile. No complaints of fever or chills. No nausea vomiting abdominal pain or diarrhea. Blood cultures have been negative. Laboratory showed WBC 6.0 hemoglobin 13.3 and platelets 242 Sodium 143 potassium 4.0 chloride 110 bicarb is 21.7 BUN 9.7 creatinine 0.8 and CRP less than 0.3. Patient remains on antibiotics of cefazolin. ID is on board. 09/13/2021 Patient is lying in bed. Right upper extremity swelling and redness did improve compared to yesterday. Patient complains of itching. Otherwise no complaints of nausea vomiting abdominal pain or diarrhea. No fever no chills. No cough or sputum production. No headache or dizziness lightheadedness. Lab data reviewed. Blood cultures have been negative. Patient remains antibiotics and off cefazolin. Current medications reviewed. Objective - Vital Signs Vital signs: Vital Signs Temp 97.5 F L 09/13/21 14:00 Pulse 84 09/13/21 14:00 Resp 18 09/13/21 14:00 BP 145/72 09/13/21 14:00 Pulse Ox 98 09/13/21 14:00 FiO2 Intake & Output 09/13/21 09/13/21 09/14/21 06:59 18:59 06:59 Intake Total 1080 Balance 1080 Intake: Oral 1080 Other: Voiding Method Toilet # Voids 5 3 # Bowel Movements 1 - Exam PHYSICAL EXAMINATION: Patient is lying in the bed comfortably, no acute distress, awake alert and oriented.. HEENT: Normocephalic. Neck is supple. Pupils reactive. Nostrils clear. Oral cav ity is moist. Neck reveals no JVD, carotid bruits, or thyromegaly. CHEST EXAMINATION: Trachea is central. Symmetrical expansion. Lung beckwith clear to auscultation and percussion. CARDIAC: Normal S1, S2 with no gallops. No murmurs ABDOMEN: Soft. Bowel sounds present. Nontender. No organomegaly. No abdominal bruits. Extremities: Right upper extremity redness extending every forearm up to the axillary region. Swelling and mild tenderness. Warm to touch.. No clubbing or cyanosis Neurologically awake, alert, oriented x3 with well-coordinated movements. No focal deficits noted Skin: No rash or skin lesions. Psychiatric: Coperative. Nonsuicidal, anxious. Musculoskeletal: No joint swelling or deformity. Normal range of motion. - Labs CBC & Chem 7: 09/12/21 07:13 09/12/21 07:13 Labs: Microbiology - Last 24 Hours (Table) 09/10/21 19:45 Blood Culture - Preliminary Blood No Growth after 48 hours 09/10/21 19:30 Blood Culture - Preliminary Blood No Growth after 48 hours Assessment and Plan Assessment: Right upper extremity cellulitis extending up to the axilla. Failed outpatient therapy. History of CVA/TIA History of right breast cancer status postlumpectomy Fibromyalgia Osteoarthritis Hypothyroidism Positive smoking DVT prophylaxis with heparin subcu Plan: Patient will be continued cefazolin. Was given a dose of vancomycin and ceftriaxone in the ER. Current home medications including Plavix and blood pressure medications. negative culture reports. ID is on board. CT of the right upper EXTR to evaluate without any abscess. no fluid collection noted. Continue to follow. Time with Patient: Greater than 30
--- NOTE | 2021-09-14 23:48 | P.PN ---
Subjective Progress Note Date: 09/14/21 Patient is a 80-year-old female with a known history of COPD, history of CVA/TIA, fibromyalgia, osteoarthritis, hypothyroidism and history of breast cancer s/p lumpectomy, coronary artery disease with history of stent placement and previous history of smoking presents to ER with complaints of right upper extremity redness and swelling and not improving with oral antibiotic course. Patient was seen at [facility] and was on IV cefazolin which is changed to oral Keflex at discharge. Patient presented back to hospital due to swelling and redness not really getting better. Patient has been on oral Keflex for the past 1 week. Completed antibiotic course yesterday and was seen by primary care physician and sent to ER for IV antibiotics. On admission patient was tachycardic and respiration 20 pulse ox 100% on room air and blood pressure 150/80. Right upper extremity venous duplex scan is negative for DVT. Laboratory data show WBC 6.6 hemoglobin 13.9 and platelets 261 Sodium 140 potassium 4.3 chloride 106 bicarb is 20 BUN 16 and creatinine 0.88 magnesium 2.4 AST 42 ALT 14 and alk phos 78 09/12/2021 Patient is currently resting in bed. Awake alert oriented x3. Right upper extremity still swollen and indurated. He is afebrile. No complaints of fever or chills. No nausea vomiting abdominal pain or diarrhea. Blood cultures have been negative. Laboratory showed WBC 6.0 hemoglobin 13.3 and platelets 242 Sodium 143 potassium 4.0 chloride 110 bicarb is 21.7 BUN 9.7 creatinine 0.8 and CRP less than 0.3. Patient remains on antibiotics of cefazolin. ID is on board. 09/13/2021 Patient is lying in bed. Right upper extremity swelling and redness did improve compared to yesterday. Patient complains of itching. Otherwise no complaints of nausea vomiting abdominal pain or diarrhea. No fever no chills. No cough or sputum production. No headache or dizziness lightheadedness. Lab data reviewed. Blood cultures have been negative. Patient remains antibiotics and off cefazolin. 09/14/2021 Patient is currently resting in bed. Right upper extremity redness is improved. Still having mildly indurated. No fever no chills. No cough or sputum production. No nausea vomiting abdominal diarrhea. Laboratory reviewed. Patient will be current cefazolin and ID is on board. Anticipate discharge in next 24 to 48 hours. Current medications reviewed. Objective - Vital Signs Vital signs: Vital Signs Temp 98.6 F 09/14/21 20:00 Pulse 87 09/14/21 20:00 Resp 17 09/14/21 20:00 BP 152/61 09/14/21 20:00 Pulse Ox 94 L 09/14/21 20:00 FiO2 Intake & Output 09/14/21 09/14/21 09/15/21 06:59 18:59 06:59 Other: Voiding Method Toilet Toilet # Voids 3 5 # Bowel Movements 1 - Exam PHYSICAL EXAMINATION: Patient is lying in the bed comfortably, no acute distress, awake alert and oriented.. HEENT: Normocephalic. Neck is supple. Pupils reactive. Nostrils clear. Oral cavity is moist. Neck reveals no JVD, carotid bruits, or thyromegaly. CHEST EXAMINATION: Trachea is central. Symmetrical expansion. Lung beckwith clear to auscultation and percussion. CARDIAC: Normal S1, S2 with no gallops. No murmurs ABDOMEN: Soft. Bowel sounds present. Nontender. No organomegaly. No abdominal bruits. Extremities: Right upper extremity redness extending every forearm up to the axillary region. Swelling and mild tenderness. Warm to touch.. No clubbing or cyanosis Neurologically awake, alert, oriented x3 with well-coordinated movements. No focal deficits noted Skin: No rash or skin lesions. Psychiatric: Coperative. Nonsuicidal, anxious. Musculoskeletal: No joint swelling or deformity. Normal range of motion. - Labs CBC & Chem 7: 09/12/21 07:13 09/12/21 07:13 Labs: Microbiology - Last 24 Hours (Table) 09/10/21 19:45 Blood Culture - Preliminary Blood No Growth after 72 hours 09/10/21 19:30 Blood Culture - Preliminary Blood No Growth after 72 hours Assessment and Plan Assessment: Right upper extremity cellulitis extending up to the axilla. Failed outpatient therapy. improving History of CVA/TIA History of right breast cancer status postlumpectomy Fibromyalgia Osteoarthritis Hypothyroidism Positive smoking DVT prophylaxis with heparin subcu Plan: Patient will be continued cefazolin. Was given a dose of vancomycin and ceftriaxone in the ER. Current home medications including Plavix and blood pressure medications. negative culture reports. ID is on board. CT of the right upper EXTR to evaluate without any abscess. no fluid collection noted. Continue to follow.
[2021-09-15] MEDS: LEVOTHYROXINE 50 MCG TAB PO SCH (05:34)
[2021-09-15] MEDS: amLODIPine 5 MG TAB PO SCH (07:46)
[2021-09-15] MEDS: PANTOPRAZOLE 40 MG TABLET PO SCH (07:46)
[2021-09-15] MEDS: CLOPIDOGREL 75 MG TAB PO SCH (07:46)
[2021-09-15] MEDS: carvediloL 6.25 MG TAB PO SCH (07:46)
[2021-09-15] MEDS: DULoxetine HCL 20 MG CAPSULE.DR PO SCH (07:46)
[2021-09-15] MEDS: clonazePAM 1 MG TAB PO PRN (07:55)
[2021-09-15] MEDS: HEPARIN SODIUM,PORCINE/PF 5,000 UNIT/0.5 ML SYRINGE SQ SCH (08:03)
[2021-09-15 08:06] VITALS: TEMP 98
[2021-09-15 09:15] LABS: Basophils # (A) 0.08 X 10*3/uL (0.00-0.10); Basophils % (A) 1.2 %; Eosinophils # (A) 0.24 X 10*3/uL (0.04-0.35); Eosinophils % (A) 3.6 %; HCT 39.2 % (37.2-46.3); HGB 12.6 g/dL (12.0-15.0); Immature Grans, Automated 0.3 %; Lymphocytes # (A) 2.32 X 10*3/uL (0.90-5.00); Lymphocytes % (A) 34.9 %; MCH 29.3 pg (27.0-32.0); MCHC 32.1 g/dL (32.0-37.0); MCV 91.2 fL (80.0-97.0); Mean Platelet Volume 11.5 fL (9.5-12.2); Monocytes # (A) 0.55 X 10*3/uL (0.20-1.00); Monocytes % (A) 8.3 %; NRBC Per 100 WBC 0 /100 WBCS (0.0-0.0); Neutrophils # (A) 3.43 X 10*3/uL (1.80-7.70); Neutrophils % (A) 51.7 %; Platelet Count 266 X 10*3/uL (140-440); RDW 12.8 % (11.5-14.5); WBC 6.64 X 10*3/uL (4.50-10.00)
[2021-09-15 09:25] LABS: African American GFR (CKD) 80.7 (60.0-200.0); BUN/Creat Ratio 14.75 Ratio (12.00-20.00); Blood Urea Nitrogen 11.8 mg/dL (9.0-27.0); Non-African American GFR(CKD) 69.6 (60.0-200.0); Potassium 4.3 mmol/L (3.5-5.5)
[2021-09-15 14:50] VITALS: BP 117/69; PULSE 83; RESP 18
--- NOTE | 2021-09-16 19:14 | P.DS ---
Providers Date of admission: 09/10/21 18:58 Attending physician: Mitzy Flynn Consults: 09/10/21 18:58 Consult Physician Routine Consulting Provider: Tano Martin Consult Reason/Comments: Cellulitis Do you want consulting provider notified?: Yes Primary care physician: Callum Cain Hospital Course: Diagnosis Right upper extremity cellulitis extending up to the axilla. Failed outpatient therapy. improving History of CVA/TIA History of right breast cancer status postlumpectomy History of coronary artery disease status post previous PCI COPD without exacerbation Fibromyalgia Osteoarthritis Hypothyroidism History of smoking DVT prophylaxis Full Code Discharge disposition Patient is stable for discharge. Will complete 2 more weeks of antibiotic therapy with oral keflex. Patient has follow up with Dr Martin on September 29. Follow up with Dr Cain on September 22. Hospital course This is a pleasant 80 year old female with medical history significant for history of stroke, COPD, right breast cancer status post lumpectomy, fibromyalgia, hypothyroidism, osteoarthritis, prior cardiac stenting. Patient has complaint of right upper extremity redness and swelling sent in from primary care with failed outpatient therapy. Patient was hospitalized for right upper extremity cellulitis and received IV cefazolin and discharge on or keflex. She presents back after finishing 1 week therapy of oral antibiotics without improvement of symptoms. Venous doppler of right arm negative for DVT. CT of right upper extremity nondiagnostic for abscess. Blood cultures were taken which are negative. White count remains normal. CRP <0.30. All other labwork within normal limits. Patient has remained afebrile, heart rate 80, blood pressure 117/69, 95% room air. Patient admitted with consultation placed to infectious disease and IV cefazolin started in the EC. 09/15/2021 Patient evaluated today sitting up in bed. Redness and swelling to right upper extremity improving. Blood cultures remain negative, no white count, no fevers. She denies shortness of breath, no chest pain. She would like to be discharged today. Lungs are clear, S1 S2 auscultated, abdomen soft and nontender. She is alert and oriented x 3, focal neurological exam is negative. Tolerating oral diet. Infectious disease cleared patient for discharge today on 2 weeks of oral keflex. Patient takes prilosec daily for GI prophylaxis. Daily oral magnesium supplement discontinued, magnesium level 2.4 on admission. Afebrile, blood pressure 117/69. Labs reviewed today showing white count 6.64, hgb 12.6, sodium 141, potassium 4.3, BUN 11.8, creatinine 0.8. Please see medication reconciliation for list of current medications. Thank you for allowing us participate in the care of this patient. Total time taken in discharge planning greater than 35 minutes The impression and plan of care has been dictated by Marilyn Valdez Nurse Practitioner as directed. Dr. Marito MD I have performed a history and physical examination and medical decision making of this patient, discussed the same with the dictator, and agree with the dictators assessment and plan as written, documented as a scribe. Based on total visit time, I have performed more than 50% of this visit. Patient Condition at Discharge: Stable Plan - Discharge Summary Discharge Rx Participant: Yes New Discharge Prescriptions: New Calamine/Zinc Oxide Lotion [Calamine Lotion] 1 applic TOPICAL BID PRN each PRN Reason: Skin Irritation Cephalexin [Keflex] 500 mg PO Q8HR 14 Days #42 cap Continue traZODone HCL 50 mg PO HS rOPINIRole HCL [Requip] 2 mg PO HS Alendronate Sodium 70 mg PO WE Levothyroxine Sodium [Synthroid] 50 mcg PO DAILY DULoxetine HCL [Cymbalta] 20 mg PO BID Clopidogrel [Plavix] 75 mg PO DAILY Losartan [Cozaar] 50 mg PO HS carvediloL [Coreg] 6.25 mg PO AC-BID #180 tab amLODIPine [Norvasc] 5 mg PO DAILY clonazePAM [KlonoPIN] 1 mg PO BID PRN PRN Reason: Anxiety Acetaminophen-Codeine 300-30mg [Tylenol w/codeine #3] 2 tab PO TID PRN PRN Reason: Pain Furosemide [Lasix] 20 mg PO DAILY Vitamin E 400 unit PO DAILY Omeprazole [PriLOSEC] 20 mg PO DAILY Multivitamins, Thera [Multivitamin (formulary)] 1 tab PO DAILY Atorvastatin [Lipitor] 40 mg PO DIRECTED Discontinued Magnesium 250 mg PO DAILY Discharge Medication List Alendronate Sodium 70 mg PO WE 06/24/18 [History] Clopidogrel [Plavix] 75 mg PO DAILY 06/24/18 [History] DULoxetine HCL [Cymbalta] 20 mg PO BID 06/24/18 [History] Levothyroxine Sodium [Synthroid] 50 mcg PO DAILY 06/24/18 [History] rOPINIRole HCL [Requip] 2 mg PO HS 06/24/18 [History] traZODone HCL 50 mg PO HS 06/24/18 [History] Losartan [Cozaar] 50 mg PO HS 09/05/18 [History] carvediloL [Coreg] 6.25 mg PO AC-BID #180 tab 09/21/18 [Rx] Furosemide [Lasix] 20 mg PO DAILY 06/03/20 [History] amLODIPine [Norvasc] 5 mg PO DAILY 06/03/20 [History] clonazePAM [KlonoPIN] 1 mg PO BID PRN 06/03/20 [History] Acetaminophen-Codeine 300-30mg [Tylenol w/codeine #3] 2 tab PO TID PRN 09/10/21 [History] Atorvastatin [Lipitor] 40 mg PO DIRECTED 09/10/21 [History] Multivitamins, Thera [Multivitamin (formulary)] 1 tab PO DAILY 09/10/21 [History] Omeprazole [PriLOSEC] 20 mg PO DAILY 09/10/21 [History] Vitamin E 400 unit PO DAILY 09/10/21 [History] Calamine/Zinc Oxide Lotion [Calamine Lotion] 1 applic TOPICAL BID PRN each 09/15/21 [Rx] Cephalexin [Keflex] 500 mg PO Q8HR 14 Days #42 cap 09/15/21 [Rx] Follow up Appointment(s)/Referral(s): Callum Cain MD [Primary Care Provider] - 09/22/21 11:30 am John Zhao [NON-STAFF] - As Needed Tano Martin MD [STAFF PHYSICIAN] - 09/29/21 2:15 pm Patient Instructions/Handouts: Cellulitis (ED) Activity/Diet/Wound Care/Special Instructions: Oral keflex three times a day for 2 weeks. Monitor right arm. If there is increased in redness and swelling notify provider or return to the ER. Discharge Disposition: HOME SELF-CARE
[2021-09-17] MEDS ORDERED: NON FORMULARY DRUG (Alendronate Sodium [Alendronate Sodium] 70 MG Tablet) PO SCH (12:09)
--- NOTE | 2021-09-22 21:42 | P.PN ---
Subjective Progress Note Date: 09/15/21 Principal diagnosis: Right upper extremity cellulitis Patient is a 80-year-old female with a past medical history significant for right-sided mastectomy with a chronic lymphedema and a history of recurrent right upper extremity cellulitis patient was recently admitted at [facility] with the patient was treated for right upper extremity cellulitis with IV cefazolin subsequent discharged home on oral Keflex as the patient did have clinical improvement patient now presenting to the [facility] ER last night concerning for increasing swelling and redness with concern for recurrent cellulitis patient did have a CT of the right upper extremity ne gative for any abscess. On today's evaluation data 09/15/2021, the patient remains to be afebrile, the patient right upper extremity swelling and redness has almost resolved, the patient denies having any pain to the right upper extremity, the patient denies any chest pain shortness of breath or cough no abdominal pain or diarrhea Objective - Vital Signs Vital signs: Vital Signs Temp 98.0 F 09/15/21 08:05 Pulse 78 09/15/21 08:05 Resp 17 09/15/21 08:05 BP 144/64 09/15/21 08:05 Pulse Ox 95 09/15/21 08:05 FiO2 Intake & Output 09/14/21 09/15/21 09/15/21 18:59 06:59 18:59 Other: Voiding Method Toilet Toilet # Voids 5 4 # Bowel Movements 1 - Exam GENERAL DESCRIPTION: An elderly female lying in bed in no distress RESPIRATORY SYSTEM: Unlabored breathing , decreased breath sounds at bases HEART: S1 S2 regular rate and rhythm , ABDOMEN: Soft , no tenderness EXTREMITIES: Right upper extremity swelling redness has decreased, less in duration no pulmonary wound or any drainage - Labs CBC & Chem 7: 09/15/21 05:49 09/15/21 05:49 Labs: Abnormal Lab Results - Last 24 Hours (Table) 09/15/21 Range/Units 05:49 Anion Gap 9.00 L (10.00-18.00) mmol/L Microbiology - Last 24 Hours (Table) 09/10/21 19:45 Blood Culture - Preliminary Blood No Growth after 96 hours 09/10/21 19:30 Blood Culture - Preliminary Blood No Growth after 96 hours Assessment and Plan (1) Cellulitis Status: Acute Code(s): L03.90 - CELLULITIS, UNSPECIFIED SNOMED Code(s): 787442886 Plan: 1patient with a history of recurrent right upper extremity cellulitis in this patient with underlying lymphedema with diffuse swelling redness likely streptococcal disease clinically not behaving as an abscess however we will obtain a CT of the right upper extremity to rule out any abscess or deep infection that may have led to failure of oral Keflex. 2CT of the right upper extremity was negative for any abscess 4patient has clinical improvement with cefazolin and plan is to finish therapy oral Keflex 10 days on discharge with close outpatient follow-up Time with Patient: Less than 30
== END 2021-09-15 16:22 | disposition home or self-care (01) | DRG 603 ==
LOC: EC 18:11 → 4SSUR 18:58
PROVIDERS: ADMIT Hospitalist; ATTEND Hospitalist
DX: L03.113 Cellulitis of right upper limb (principal); I50.22 Chronic systolic (congestive) heart failure; J44.9 Chronic obstructive pulmonary disease, unspecified; I89.0 Lymphedema, not elsewhere classified; M79.7 Fibromyalgia; M81.0 Age-related osteoporosis without current pathological fracture; M19.90 Unspecified osteoarthritis, unspecified site; I25.10 Atherosclerotic heart disease of native coronary artery without angina pectoris; F41.9 Anxiety disorder, unspecified; E89.0 Postprocedural hypothyroidism; Z85.3 Personal history of malignant neoplasm of breast; Z87.891 Personal history of nicotine dependence; Z86.73 Personal history of transient ischemic attack (TIA), and cerebral infarction without residual deficits; Z95.5 Presence of coronary angioplasty implant and graft; Z79.02 Long term (current) use of antithrombotics/antiplatelets; Z79.82 Long term (current) use of aspirin; Z79.890 Hormone replacement therapy; Z79.899 Other long term (current) drug therapy; Z80.9 Family history of malignant neoplasm, unspecified
CPT/HCPCS: 80048; 80053; 83605; 83735; 85025; 86140; 87040; 96365; 96375; 99284

== ENCOUNTER → 2021-09-19 | Outpatient (CLI) | payer MEDICARE, OTHER ==
--- NOTE | 2021-09-22 09:19 | BD ---
EXAMINATION TYPE: Axial Bone Density DATE OF EXAM: 09/19/2021 COMPARISON: NONE CLINICAL HISTORY: 80 years year old Female. ICD-10 CODE: Z12.31 SCREENING, Z78.0ASYMPTOMATIC MENCARLOS DENIS Height: 57 Weight: 112.3 FRAX RISK QUESTIONS: Alcohol (3 or more units per day): NO Family History (Parent hip fracture): NO Glucocorticoids (More than 3mos): NO History of Fracture in Adulthood: ANKLE Secondary Osteoporosis: 1. Type 1 Diabetes: NO 2. Hyperthyroidism: YES 3. Menopause before 45: NO 4. Malnutrition: NO 5. Chronic liver disease: NO Rheumatoid Arthritis: NO Current Tobacco Use: NO RISK FACTORS HISTORY OF: Hip Fracture (Right/Left): NO Spine Fracture: NO History of Wrist Fracture: NO Surgery to Spine/Hip(right/left)/Wrist (right/left): NO Family History of Osteoporosis: NO Active: YES Diet low in dairy products/other sources of calcium: NO Postmenopausal woman: YES Take estrogen and/or progesterone medications: NO Lost more than 2 inches in height since high school: NO Frequent falls: NO Poor Health: NO Hyperparathyroidism: YES Adrenal Insufficiency: NO MEDICATIONS: Prednisone or other steroids: NO Thyroid Medications:LEVOTHORIXIN How Long: PAST 15 YEARS Osteoporosis Medications: alendronate How Lon YEARS Additional Medications: LODIPINE, CHOLESTEROL MEDS, DEPRESSION MEDS, LOSARTAN, REFLUX MEDS, MULTI VIT ., MAGNESIUM BREAST CANCER WITH RADIATION AGE 54 EXAM MEASUREMENTS: Bone mineral densitometry was performed using the [employer]. Bone mineral density as measured about the Lumbar spine is: ----- L1-L4(G/cm20.961 T Score Values are as follows: ----- L1: -1.9 ----- L2: -2.0 ----- L3: -1.6 ----- L4: -2.0 ----- L1-L4: -1.8 BASELINE STUDY Bone mineral density about the R hip (g/cm2): 0.692 Bone mineral density about the L hip (g/cm2): 0.733 T Score values are as follows: -----R Neck: -2.5 -----L Neck: -2.2 -----R Total: -2.4 -----L Total: -2.0 BASELINE STUDY FRAX%s: The graph provided illustrates a 27.1% chance for a major osteoporotic fx and a 9.1% chance f or the hips probability for fx in 10 years time. IMPRESSION: Osteopenia (T Score between -2.5 and -1). There is slightly increased risk of fracture and the patient may be considered for treatment. Re-Screen 2-5 years. NOTE: T-SCORE=SD OF THE YOUNG ADULT MEAN.
--- NOTE | 2021-09-22 19:05 | MM ---
Reason for Exam: Screening (asymptomatic). Last mammogram was performed 3 year(s) and 4 month(s) ago. Patient History: Menarche at age 10. First Full-Term at age 17. Postmenopausal. Breast cancer, age 54. Hormonal Contraceptives for 29 years from age 25 until age 54. Lumpectomy on the Right side. Radiation Therapy, right. Sister had breast cancer. Sister had breast cancer. Sister had breast cancer. Prior Study Comparison: 05/10/2018 Bilateral Screening Mammogram, [facility]. Tissue Density: There are scattered fibroglandular densities. Findings: Analyzed By CAD. Postsurgical and posttreatment changes right breast. Benign bilateral oil cyst calcifications. Unchanged dystrophic calcification medial posterior right breast. No significant change from prior exams. Overall Assessment: Benign, BI-RAD 2 Management: Screening Mammogram of both breasts in 1 year. 1. Patient should continue monthly self breast exams. 2. A clinical breast exam by your physician is recommended on an annual basis. 3. This exam should not preclude additional follow-up of suspicious palpable abnormalities. Electronically signed and approved by: Bob Noriega M.D. Radiologist
== END | disposition home or self-care (01) ==
LOC: RADMAMWWP 16:29
PROVIDERS: ATTEND Family Medicine
DX: Z12.31 Encounter for screening mammogram for malignant neoplasm of breast (principal); M85.89 Other specified disorders of bone density and structure, multiple sites; Z78.0 Asymptomatic menopausal state
CPT/HCPCS: 77063; 77067; 77080

== ENCOUNTER 2021-09-22 13:28 | Inpatient (IN) | payer MEDICARE, OTHER ==
[2021-09-22] MEDS ORDERED: VANCOMYCIN IV PER PHARMACY 1 EACH MISC MISCELLANE PRN (13:43)
[2021-09-22] MEDS ORDERED: VANCOMYCIN 1,000 MG in SODIUM CHLORIDE 0.9% 250 ML IVPB STA (13:48)
--- NOTE | 2021-09-22 14:57 | ED ---
General Adult HPI - General Chief complaint: Skin/Abscess/Foreign Body Stated complaint: cellulitis rt arm Time Seen by Provider: 09/22/21 13:35 Source: patient, family, RN notes reviewed, old records reviewed Mode of arrival: ambulatory Limitations: no limitations - History of Present Illness Initial comments: This is an 80-year-old female who presents emergency department with cellulitis and some beginning of August. Patient states she's been in the hospital and was sent home on Keflex for the last 2 weeks but the cellulitis continues to get worse there is more redness more pain and more swelling. Patient denies any recent fever chills. Patient states she did have breast cancer in the past they took her lymph nodes on the right side. Patient states there is no injury to the right arm or hand that she knows of. Patient went to see her primary medical care doctor today and he wanted her to come in the hospital and be admitted and see infectious disease. Patient denies any other symptoms. Patient denies any chest pain difficulty breathing shortness of breath. Patient denies any abdominal pain patient denies nausea vomiting diarrhea. - Related Data Home Medications Medication Instructions Recorded Confirmed Alendronate Sodium 70 mg PO WE 06/24/18 09/22/21 Clopidogrel [Plavix] 75 mg PO DAILY 06/24/18 09/22/21 DULoxetine HCL [Cymbalta] 20 mg PO BID 06/24/18 09/22/21 Levothyroxine Sodium [Synthroid] 50 mcg PO DAILY 06/24/18 09/22/21 rOPINIRole HCL [Requip] 2 mg PO HS 06/24/18 09/22/21 traZODone HCL 50 mg PO HS 06/24/18 09/22/21 Losartan [Cozaar] 50 mg PO HS 09/05/18 09/22/21 Furosemide [Lasix] 20 mg PO DAILY 06/03/20 09/22/21 amLODIPine [Norvasc] 5 mg PO DAILY 06/03/20 09/22/21 clonazePAM [KlonoPIN] 1 mg PO BID PRN 06/03/20 09/22/21 Acetaminophen-Codeine 300-30mg 2 tab PO TID PRN 09/10/21 09/22/21 [Tylenol w/codeine #3] Atorvastatin [Lipitor] 40 mg PO HS 09/10/21 09/22/21 Multivitamins, Thera [Multivitamin 1 tab PO DAILY 09/10/21 09/22/21 (formulary)] Omeprazole [PriLOSEC] 20 mg PO DAILY 09/10/21 09/22/21 Vitamin E 400 unit PO DAILY 09/10/21 09/22/21 Previous Rx's Medication Instructions Recorded carvediloL [Coreg] 6.25 mg PO AC-BID #180 tab 09/21/18 Calamine/Zinc Oxide Lotion 1 applic TOPICAL BID PRN each 09/15/21 [Calamine Lotion] Cephalexin [Keflex] 500 mg PO Q8HR 14 Days #42 cap 09/15/21 Allergies Allergy/AdvReac Type Severity Reaction Status Date / Time amoxicillin AdvReac Diarrhea Verified 09/22/21 17:24 Review of Systems ROS Statement: Those systems with pertinent positive or pertinent negative responses have been documented in the HPI. ROS Other: All systems not noted in ROS Statement are negative. Past Medical History Past Medical History: Cancer, Heart Failure, COPD, CVA/TIA, Fibromyalgia, Osteoarthritis (OA), Thyroid Disorder Additional Past Medical History / Comment(s): 2011 carbon monoxide posioning(caused a stroke), breast cancer, "low blood pressure, they have trouble getting a blood pressure reading on my left arm", recent tx for bronchitits, osteoporosis. History of Any Multi-Drug Resistant Organisms: None Reported Past Surgical History: Breast Surgery, Cholecystectomy, Heart Catheterization, Heart Catheterization With Stent Additional Past Surgical History / Comment(s): Thyroidectomy, right breast lumpectomy. 2 stent to LAD, cataracts, cataract removal sx with permanent contact lenses. Past Anesthesia/Blood Transfusion Reactions: No Reported Reaction Date of Last Stent Placement:: 09/20/18 Past Psychological History: Anxiety Smoking Status: Former smoker - Past Family History Sister(s) Family Medical History: Cancer General Exam - General Exam Comments Initial Comments: GENERAL: Patient is well-developed and well-nourished. Patient is nontoxic and well- hydrated and is in mild distress. ENT: Neck is soft and supple. No significant lymphadenopathy is noted. Oropharynx is clear. Moist mucous membranes. Neck has full range of motion without eliciting any pain. EYES: The sclera were anicteric and conjunctiva were pink and moist. Extraocular movements were intact and pupils were equal round and reactive to light. Eyelids were unremarkable. PULMONARY: Unlabored respirations. Good breath sounds bilaterally. No audible rales rhonchi or wheezing was noted. CARDIOVASCULAR: There is a regular rate and rhythm without any murmurs gallops or rubs. ABDOMEN: Soft and nontender with normal bowel sounds. SKIN: Arm is red and swollen from about the wrist to the mid upper arm. NEUROLOGIC: Patient is alert and oriented x3. Cranial nerves II through XII are grossly in tact. Motor and sensory are also intact. Normal speech, volume and content. Symmetrical smile. MUSCULOSKELETAL: Normal extremities with adequate strength and full range of motion. No lower extremity swelling or edema. No calf tenderness. LYMPHATICS: No significant lymphadenopathy is noted PSYCHIATRIC: Normal psychiatric evaluation. Limitations: no limitations Course Vital Signs 09/22/21 09/22/21 13:34 17:06 Temperature 97.7 F Pulse Rate 71 78 Respiratory 18 16 Rate Blood Pressure 183/75 156/71 O2 Sat by Pulse 97 97 Oximetry Medical Decision Making - Medical Decision Making Patient has cellulitis of the right arm and is failed outpatient therapy here patient also did have to inpatient states for the same cellulitis so Dr. Cain is requesting the patient be admitted and have infectious disease see the patient. [facility] agreed to admit the patient admitted patient wrote admitting orders. - Lab Data Result diagrams: 09/22/21 16:25 09/22/21 15:39 Lab Results 09/22/21 09/22/21 09/22/21 Range/Units 15:39 16:25 16:25 WBC 4.2 (3.8-10.6) k/uL RBC 4.16 (3.80-5.40) m/uL Hgb 12.8 (11.4-16.0) gm/dL Hct 38.6 (34.0-46.0) % MCV 92.7 (80.0-100.0) fL MCH 30.8 (25.0-35.0) pg MCHC 33.3 (31.0-37.0) g/dL RDW 13.5 (11.5-15.5) % Plt Count 164 (150-450) k/uL MPV 8.6 Neutrophils % 54 % Lymphocytes % 32 % Monocytes % 5 % Eosinophils % 5 % Basophils % 1 % Neutrophils # 2.2 (1.3-7.7) k/uL Lymphocytes # 1.4 (1.0-4.8) k/uL Monocytes # 0.2 (0-1.0) k/uL Eosinophils # 0.2 (0-0.7) k/uL Basophils # 0.0 (0-0.2) k/uL Sodium 139 (137-145) mmol/L Potassium 4.4 (3.5-5.1) mmol/L Chloride 103 (98-107) mmol/L Carbon Dioxide 28 (22-30) mmol/L Anion Gap 8 mmol/L BUN 18 H (7-17) mg/dL Creatinine 0.80 (0.52-1.04) mg/dL Est GFR (CKD-EPI)AfAm 81 (>60 ml/min/1.73 sqM) Est GFR (CKD-EPI)NonAf 70 (>60 ml/min/1.73 sqM) Glucose 95 (74-99) mg/dL Plasma Lactic Acid Haris 0.5 L (0.7-2.0) mmol/L Calcium 9.3 (8.4-10.2) mg/dL Total Bilirubin 0.5 (0.2-1.3) mg/dL AST 44 H (14-36) U/L ALT 12 (4-34) U/L Alkaline Phosphatase 63 (38-126) U/L Total Protein 7.6 (6.3-8.2) g/dL Albumin 4.6 (3.5-5.0) g/dL Disposition Clinical Impression: Cellulitis of arm, right Disposition: ADMITTED IP TO THIS HOSP Referrals: Callum Cain MD [Primary Care Provider] - 1-2 days Time of Disposition: 17:43
[2021-09-22] MEDS: SODIUM CHLORIDE 0.9% 500 ML 500 ML IV SCH (15:48)
[2021-09-22 16:12] LABS: Albumin 4.6 g/dL (3.5-5.0); Calcium 9.3 mg/dL (8.4-10.2); Potassium 4.4 mmol/L (3.5-5.1); Total Bilirubin 0.5 mg/dL (0.2-1.3); Total Protein 7.6 g/dL (6.3-8.2)
[2021-09-22 16:37] LABS: Basophils % (A) 1 %; Eosinophils # (A) 0.2 k/uL (0-0.7); Eosinophils % (A) 5 %; HCT 38.6 % (34.0-46.0); HGB 12.8 gm/dL (11.4-16.0); Lymphocytes # (A) 1.4 k/uL (1.0-4.8); Lymphocytes % (A) 32 %; MCH 30.8 pg (25.0-35.0); MCHC 33.3 g/dL (31.0-37.0); MCV 92.7 fL (80.0-100.0); Mean Platelet Volume 8.6; Monocytes # (A) 0.2 k/uL (0-1.0); Monocytes % (A) 5 %; Neutrophils # (A) 2.2 k/uL (1.3-7.7); Neutrophils % (A) 54 %; Platelet Count 164 k/uL (150-450); RBC 4.16 m/uL (3.80-5.40); RDW 13.5 % (11.5-15.5); WBC 4.2 k/uL (3.8-10.6)
[2021-09-22 17:10] VITALS: RESP 16
[2021-09-22] MEDS ORDERED: SODIUM CHLORIDE 0.9% 1,000 ML IV ONE (17:43)
[2021-09-22] MEDS ORDERED: Acetaminophen-Codeine 300-30mg TAB PO PRN (19:17)
[2021-09-22] MEDS: DULoxetine HCL 20 MG CAPSULE.DR PO SCH (20:50)
[2021-09-22] MEDS: carvediloL 6.25 MG TAB PO SCH (20:50)
[2021-09-22] MEDS: clonazePAM 1 MG TAB PO PRN (20:52)
[2021-09-22] MEDS ORDERED: ATORVASTATIN 40 MG TAB PO SCH (21:00)
[2021-09-22] MEDS ORDERED: LOSARTAN 50 MG TAB PO SCH (21:00)
[2021-09-22] MEDS ORDERED: traZODone HCL 50 MG TAB PO SCH (21:00)
[2021-09-23] MEDS ORDERED: VANCOMYCIN 1,000 MG in SODIUM CHLORIDE 0.9% 250 ML IVPB SCH (06:00)
[2021-09-23] MEDS ORDERED: LEVOTHYROXINE 50 MCG TAB PO SCH (06:30)
[2021-09-23 07:20] LABS: African American GFR (CKD) >90 (>60 ml/min/1.73 sqM); Non-African American GFR(CKD) 84 (>60 ml/min/1.73 sqM)
[2021-09-23] MEDS ORDERED: PANTOPRAZOLE 40 MG TABLET PO SCH (07:30)
[2021-09-23] MEDS: carvediloL 6.25 MG TAB PO SCH (08:01)
[2021-09-23] MEDS: DULoxetine HCL 20 MG CAPSULE.DR PO SCH (08:01)
[2021-09-23] MEDS: clonazePAM 1 MG TAB PO PRN (08:04)
[2021-09-23] MEDS ORDERED: FUROSEMIDE 20 MG TAB PO SCH (09:00)
[2021-09-23] MEDS ORDERED: VITAMIN E (DL,TOCOPHERYL ACET) 400 UNIT (180 MG) CAP PO SCH (09:00)
[2021-09-23] MEDS ORDERED: amLODIPine 5 MG TAB PO SCH (09:00)
[2021-09-23] MEDS ORDERED: MULTIVITAMINS, THERA 1 EACH TAB PO SCH (09:00)
[2021-09-23] MEDS ORDERED: CLOPIDOGREL 75 MG TAB PO SCH (09:00)
[2021-09-23 13:23] VITALS: BP 146/68; PULSE 79; TEMP 98.7
--- NOTE | 2021-09-23 14:11 | P.HPIM ---
History of Present Illness H&P Date: 09/23/21 This is a pleasant 80-year-old female with medical history significant for heart failure, COPD, stroke, hypothyroidism, breast cancer status post right lumpectomy with lymph nodes removed in the right axilla. Patient is also post cardiac catheterization with 2 stents to the LAD, cataract removal surgery permanent contact lenses. Patient is a former smoker. She was recently treated at [facility] for right arm cellulitis with IV antibiotics discharged with oral keflex which was a failed OP treatment. She then was treated at [facility] from September 10 to 09/15/2021 for cellulitis of the right upper extremity with failed outpatient treatment again. During the hospital stay patient was treated with IV cefazolin was discharged on oral Keflex. Patient had right upper extremity CT on September 11 that shows a streaky edema in right upper extremity without definitive organizing peripherally enhancing fluid collection suggesting abscess correlation for cellulitis. She presents to the [facility] yesterday evening with concern for cellulitis sent in from primary care office. She does report increased swelling to the right upper extremity. She denies numbness tingling. No fevers or chills. No chest pain or shortness of breath. She was started on IV vancomycin and IV ceftriaxone with infectious diseases consult. Blood count panel is unremarkable, no white count, Lactic acid is normal at 0.5. Electrolytes are within normal limits. AST is slightly elevated at 44. There is no local erythema noted. The right forearm does have pitting edema on examination, this is most likely a lymphedema. Infectious disease has stopped the antibiotics, no clinical indication for infection at this time. REVIEW OF SYSTEMS: CONSTITUTIONAL: No fever, no malaise, no fatigue. HEENT: No recent visual problems or hearing problems. Denied any sore throat. CARDIOVASCULAR: No chest pain, orthopnea, PND, no palpitations, no syncope. PULMONARY: No shortness of breath, no cough, no hemoptysis. GASTROINTESTINAL: No diarrhea, no nausea, no vomiting, no abdominal pain. NEUROLOGICAL: No headaches, no weakness, no numbness. HEMATOLOGICAL: Denies any bleeding or petechiae. GENITOURINARY: Denies any burning micturition, frequency, or urgency. MUSCULOSKELETAL/RHEUMATOLOGICAL: Denies any joint pain, swelling, or any muscle pain. ENDOCRINE: Denies any polyuria or polydipsia. The rest of the 14-point review of systems is negative. PHYSICAL EXAMINATION: GENERAL: The patient is alert and oriented x3, not in any acute distress. Well developed, well nourished. HEENT: Pupils are round and equally reacting to light. EOMI. No scleral icterus. No conjunctival pallor. Normocephalic, atraumatic. No pharyngeal erythema. No thyromegaly. CARDIOVASCULAR: S1 and S2 present. No murmurs, rubs, or gallops. PULMONARY: Chest is clear to auscultation, no wheezing or crackles. ABDOMEN: Soft, nontender, nondistended, normoactive bowel sounds. No palpable organomegaly. MUSCULOSKELETAL: No joint swelling or deformity. EXTREMITIES: No cyanosis, clubbing, or pedal edema. NEUROLOGICAL: Gross neurological examination did not reveal any focal deficits. SKIN: No rashes. Assessment and plan Assessment Right upper extremity edema with recent antibiotic treatment for right upper extremity cellulitis Lymphedema right upper extremity History of right breast cancer post right lumpectomy with lymph node removal right axilla History of heart failure, History of COPD, history of stroke, History of stroke History coronary artery disease status post cardiac stenting Former smoker GI Prophylaxis DVT Prophylaxis Full Code Plan Appreciate infectious disease consultation Discontinue antibiotics Medically patient can be discharged She has been referred to [facility] for lymphedema Resume all home medications The impression and plan of care has been dictated by Marilyn Valdez, Nurse Practitioner as directed. Dr. Marito MD I have performed a history and physical examination and medical decision making of this patient, discussed the same with the dictator, and agree with the dictators assessment and plan as written, documented as a scribe. Based on total visit time, I have performed more than 50% of this visit. Past Medical History Past Medical History: Cancer, Heart Failure, COPD, CVA/TIA, Fibromyalgia, Osteoarthritis (OA), Thyroid Disorder Additional Past Medical History / Comment(s): 2011 carbon monoxide posioning(cau sed a stroke), breast cancer, "low blood pressure, they have trouble getting a blood pressure reading on my left arm", bronchitits, osteoporosis. History of Any Multi-Drug Resistant Organisms: None Reported Past Surgical History: Breast Surgery, Cholecystectomy, Heart Catheterization, Heart Catheterization With Stent Additional Past Surgical History / Comment(s): Thyroidectomy, right breast lumpectomy. 2 stent to LAD, cataract removal sx with permanent contact lenses. Past Anesthesia/Blood Transfusion Reactions: No Reported Reaction Date of Last Stent Placement:: 09/20/18 Past Psychological History: Anxiety Smoking Status: Former smoker Past Alcohol Use History: Rare Additional Past Alcohol Use History / Comment(s): Quit smoking in her 40's, started smoking age 14, 1 PPD. Past Drug Use History: None Reported - Past Family History Sister(s) Family Medical History: Cancer Medications and Allergies Home Medications Medication Instructions Recorded Confirmed Type Alendronate Sodium 70 mg PO WE 06/24/18 09/22/21 History Clopidogrel [Plavix] 75 mg PO DAILY 06/24/18 09/22/21 History DULoxetine HCL [Cymbalta] 20 mg PO BID 06/24/18 09/22/21 History Levothyroxine Sodium [Synthroid] 50 mcg PO DAILY 06/24/18 09/22/21 History rOPINIRole HCL [Requip] 2 mg PO HS 06/24/18 09/22/21 History traZODone HCL 50 mg PO HS 06/24/18 09/22/21 History Losartan [Cozaar] 50 mg PO HS 09/05/18 09/22/21 History carvediloL [Coreg] 6.25 mg PO AC-BID #180 tab 09/21/18 09/22/21 Rx Furosemide [Lasix] 20 mg PO DAILY 06/03/20 09/22/21 History amLODIPine [Norvasc] 5 mg PO DAILY 06/03/20 09/22/21 History clonazePAM [KlonoPIN] 1 mg PO BID PRN 06/03/20 09/22/21 History Acetaminophen-Codeine 300-30mg 2 tab PO TID PRN 09/10/21 09/22/21 History [Tylenol w/codeine #3] Atorvastatin [Lipitor] 40 mg PO HS 09/10/21 09/22/21 History Multivitamins, Thera [Multivitamin 1 tab PO DAILY 09/10/21 09/22/21 History (formulary)] Omeprazole [PriLOSEC] 20 mg PO DAILY 09/10/21 09/22/21 History Vitamin E 400 unit PO DAILY 09/10/21 09/22/21 History Calamine/Zinc Oxide Lotion 1 applic TOPICAL BID PRN each 09/15/21 09/22/21 Rx [Calamine Lotion] Allergies Allergy/AdvReac Type Severity Reaction Status Date / Time amoxicillin AdvReac Diarrhea Verified 09/22/21 17:24 Physical Exam Vitals: Vital Signs Temp Pulse Pulse Resp BP BP Pulse Ox 09/23/21 04:28 98.2 F 84 16 153/72 94 L 09/22/21 19:20 97.4 F L 78 16 131/84 97 09/22/21 17:06 78 16 156/71 97 09/22/21 13:34 97.7 F 71 18 183/75 97 Intake and Output 09/22/21 09/23/21 09/23/21 22:59 06:59 14:59 Intake Total 240 Balance 240 Intake: Oral 240 Other: Voiding Method Toilet Diaper Incontinent # Voids 3 Weight 52.163 kg Results CBC & Chem 7: 09/22/21 16:25 09/23/21 05:28 Labs: Abnormal Lab Results - Last 24 Hours (Table) 09/22/21 09/22/21 Range/Units 15:39 16:25 BUN 18 H (7-17) mg/dL Plasma Lactic Acid Haris 0.5 L (0.7-2.0) mmol/L AST 44 H (14-36) U/L Thrombosis Risk Factor Assmnt - Choose All That Apply Each Risk Factor Represents 3 Points: Age 75 years or older Other congenital or acquired thrombophilia - If yes, enter type in comment: No Thrombosis Risk Factor Assessment Total Risk Factor Score: 3 Thrombosis Risk Factor Assessment Level: Moderate Risk
--- NOTE | 2021-09-24 15:50 | P.DS ---
Providers Date of admission: 09/22/21 17:43 Attending physician: Mitzy Flynn Consults: 09/22/21 17:43 Consult Physician Urgent Consulting Provider: Tano Martin Consult Reason/Comments: Cellulitis right arm failed outpatient treatment Do you want consulting provider notified?: Yes Primary care physician: Callum Cain Hospital Course: Diagnosis Right upper extremity edema with recent antibiotic treatment for right upper extremity cellulitis Lymphedema right upper extremity History of right breast cancer post right lumpectomy with lymph node removal right axilla History of heart failure, History of COPD, history of stroke, History of stroke History coronary artery disease status post cardiac stenting Former smoker Discharge Disposition Patient is stable for discharge from a medical standpoint. Infectious disease has also cleared patient for discharge recommending no antibiotics, and ruled out recurrent cellulitis. She is referred to [facility] physical therapy for lymphedema which prescription was faxed over. They will notify patient of discharge. Hospital Course This is a pleasant 80-year-old female with medical history significant for heart failure, COPD, stroke, hypothyroidism, breast cancer status post right lumpectomy with lymph nodes removed in the right axilla, recent and treatment for right upper extremity cellulitis. Patient presents to the emergency room from her primary care with concern for recurrence of cellulitis for the third time. There is increased edema to the right forearm. There is no erythema patient does not have a white count is 4.2. Infectious disease has really the patient and discontinue antibiotics, patient does not need further antibiotic therapy on discharge. She is referred to physical therapy for lymphedema. Please refer to medical H and P for additional information. Please see medication reconciliation for a list of current medication. Thank you for allowing us to participate in the care of this patient. The impression and plan of care has been dictated by Marilyn Valdez Nurse Practitioner as directed. Dr. Marito MD I have performed a history and physical examination and medical decision making of this patient, discussed the same with the dictator, and agree with the dictators assessment and plan as written, documented as a scribe. Based on total visit time, I have performed more than 50% of this visit. Patient Condition at Discharge: Good Plan - Discharge Summary New Discharge Prescriptions: Continue traZODone HCL 50 mg PO HS rOPINIRole HCL [Requip] 2 mg PO HS Alendronate Sodium 70 mg PO WE Levothyroxine Sodium [Synthroid] 50 mcg PO DAILY DULoxetine HCL [Cymbalta] 20 mg PO BID Clopidogrel [Plavix] 75 mg PO DAILY Losartan [Cozaar] 50 mg PO HS carvediloL [Coreg] 6.25 mg PO AC-BID #180 tab amLODIPine [Norvasc] 5 mg PO DAILY clonazePAM [KlonoPIN] 1 mg PO BID PRN PRN Reason: Anxiety Acetaminophen-Codeine 300-30mg [Tylenol w/codeine #3] 2 tab PO TID PRN PRN Reason: Pain Calamine/Zinc Oxide Lotion [Calamine Lotion] 1 applic TOPICAL BID PRN each PRN Reason: Skin Irritation Furosemide [Lasix] 20 mg PO DAILY Vitamin E 400 unit PO DAILY Omeprazole [PriLOSEC] 20 mg PO DAILY Multivitamins, Thera [Multivitamin (formulary)] 1 tab PO DAILY Atorvastatin [Lipitor] 40 mg PO HS Discontinued Cephalexin [Keflex] 500 mg PO Q8HR 14 Days #42 cap Discharge Medication List Alendronate Sodium 70 mg PO WE 06/24/18 [History] Clopidogrel [Plavix] 75 mg PO DAILY 06/24/18 [History] DULoxetine HCL [Cymbalta] 20 mg PO BID 06/24/18 [History] Levothyroxine Sodium [Synthroid] 50 mcg PO DAILY 06/24/18 [History] rOPINIRole HCL [Requip] 2 mg PO HS 06/24/18 [History] traZODone HCL 50 mg PO HS 06/24/18 [History] Losartan [Cozaar] 50 mg PO HS 09/05/18 [History] carvediloL [Coreg] 6.25 mg PO AC-BID #180 tab 09/21/18 [Rx] Furosemide [Lasix] 20 mg PO DAILY 06/03/20 [History] amLODIPine [Norvasc] 5 mg PO DAILY 06/03/20 [History] clonazePAM [KlonoPIN] 1 mg PO BID PRN 06/03/20 [History] Acetaminophen-Codeine 300-30mg [Tylenol w/codeine #3] 2 tab PO TID PRN 09/10/21 [History] Atorvastatin [Lipitor] 40 mg PO HS 09/10/21 [History] Multivitamins, Thera [Multivitamin (formulary)] 1 tab PO DAILY 09/10/21 [History] Omeprazole [PriLOSEC] 20 mg PO DAILY 09/10/21 [History] Vitamin E 400 unit PO DAILY 09/10/21 [History] Calamine/Zinc Oxide Lotion [Calamine Lotion] 1 applic TOPICAL BID PRN each 09/15/21 [Rx] Follow up Appointment(s)/Referral(s): [facility] [Other] - 1 Week (Lymphedema treatment They will call you with appointment Script for therapy was faxed, please bring original copy with you to first appointment) Callum Cain MD [Primary Care Provider] - 09/26/21 10:40 am John Zhao [NON-STAFF] - 1 Week Patient Instructions/Handouts: Lymphedema (DC) Activity/Diet/Wound Care/Special Instructions: Follow up at [facility] for compression and drainage therapy regarding right arm lymphedema Address: [address] [place] [address] They will call you to schedule first appointment No need for antibiotics on discharge Discharge Disposition: HOME WITH HOME HEALTH SERVICES
== END 2021-09-23 14:56 | disposition home health service (06) | DRG 603 ==
LOC: EC 13:28 → 5NMEDONC 17:43
PROVIDERS: ADMIT Hospitalist; ATTEND Hospitalist
DX: L03.113 Cellulitis of right upper limb (principal); M79.7 Fibromyalgia; J44.9 Chronic obstructive pulmonary disease, unspecified; M81.0 Age-related osteoporosis without current pathological fracture; I50.9 Heart failure, unspecified; M19.90 Unspecified osteoarthritis, unspecified site; E89.0 Postprocedural hypothyroidism; J40 Bronchitis, not specified as acute or chronic; F41.9 Anxiety disorder, unspecified; I25.10 Atherosclerotic heart disease of native coronary artery without angina pectoris; Z86.73 Personal history of transient ischemic attack (TIA), and cerebral infarction without residual deficits; Z79.02 Long term (current) use of antithrombotics/antiplatelets; Z79.890 Hormone replacement therapy; Z79.899 Other long term (current) drug therapy; Z85.3 Personal history of malignant neoplasm of breast; Z87.891 Personal history of nicotine dependence; Z95.5 Presence of coronary angioplasty implant and graft; Z88.1 Allergy status to other antibiotic agents; Z98.42 Cataract extraction status, left eye; Z98.41 Cataract extraction status, right eye; Z90.49 Acquired absence of other specified parts of digestive tract
CPT/HCPCS: 36415; 80053; 82565; 83605; 85025; 87040; 93005; 96365; 96366; 96368; 99284

== ENCOUNTER → 2022-05-15 | Outpatient (CLI) | payer MEDICARE, OTHER ==
--- NOTE | 2022-05-15 16:14 | P.GSHP ---
History of Present Illness H&P Date: 05/15/22 Olena is an 81 year old white female seen in consultation for DR. Callum Cain regarding a lump in her right breast. She noted this about two weeks ago. It is not painful. She had a right breast lumpectomy and radiation therapy 20 years ago. She did not have any chemotherapy. She did take hormone therapy for a period of time. She had a bilateral mammogram on which was BIRADS 2. She is not complaining of any trauma or infection in her breast. She has developed lymphedema in the last year. Caffiene: 1 cup/day nicotine: none, stopped 40 years ago chocolate: daily BCP: 10 years hormones: none Family History: 4 sisters, 1 brother 3 sisters: breast cancer, (two over 50 and one under 50) sister: lymphoma maternal aunt: breast cancer Hormonal History: menarche: 10 , breast fed: yes, age at first : 17 menopause: 50 Surgical History: right breast lumpectomy and node sampling cataract bilateral thyroid 75% removed no cancer gallbaldder Cardiac and subclavian stents Medical History: anxiety HTN fibromyalgia COPD Social History: nicotine: none alcohol: occasional drugs: none - Constitutional Constitutional: Denies chills, Denies fever - EENT Eyes: denies blurred vision, denies pain Ears: bilateral: tinnitus, deny: decreased hearing Ears, nose, mouth and throat: Denies headache, Denies sore throat - Breasts Breasts: bilateral: as per HPI - Cardiovascular Cardiovascular: Reports as per HPI, Reports chest pain, Denies shortness of breath - Respiratory Respiratory: Reports cough - Gastrointestinal Gastrointestinal: Denies abdominal pain, Denies diarrhea, Denies nausea, Denies vomiting - Genitourinary (Female) Genitourinary: Denies dysuria, Denies hematuria - Menstruation Menstruation: Reports postmenopausal - Musculoskeletal Comment: back pain, fibromyalgia - Integumentary Comment: right arm lymphedema - Neurological Comment: syncope - Psychiatric Psychiatric: Reports anxiety - Endocrine Endocrine: Denies fatigue, Denies weight change - Hematologic/Lymphatic Comment: aspirin and plavix - Allergic/Immunologic Allergic/Immunologic: Reports as per HPI Past Medical History Past Medical History: Cancer, Heart Failure, COPD, CVA/TIA, Fibromyalgia, Osteoarthritis (OA), Thyroid Disorder Additional Past Medical History / Comment(s): 2010 carbon monoxide posioning(caused a stroke), breast cancer, "low blood pressure, they have trouble getting a blood pressure reading on my left arm", bronchitits, osteoporosis. History of Any Multi-Drug Resistant Organisms: None Reported Past Surgical History: Breast Surgery, Cholecystectomy, Heart Catheterization, Heart Catheterization With Stent Additional Past Surgical History / Comment(s): Thyroidectomy, right breast lump ectomy. 2 stent to LAD, cataract removal sx with permanent contact lenses. Past Anesthesia/Blood Transfusion Reactions: No Reported Reaction Date of Last Stent Placement:: 09/20/18 Past Psychological History: Anxiety Smoking Status: Former smoker Past Alcohol Use History: Rare Additional Past Alcohol Use History / Comment(s): Quit smoking in her 40's, started smoking age 14, 1 PPD. Past Drug Use History: None Reported - Past Family History Sister(s) Family Medical History: Cancer Medications and Allergies Home Medications Medication Instructions Recorded Confirmed Type Alendronate Sodium 70 mg PO WE 06/24/18 09/22/21 History Clopidogrel [Plavix] 75 mg PO DAILY 06/24/18 09/22/21 History DULoxetine HCL [Cymbalta] 20 mg PO BID 06/24/18 09/22/21 History Levothyroxine Sodium [Synthroid] 50 mcg PO DAILY 06/24/18 09/22/21 History rOPINIRole HCL [Requip] 2 mg PO HS 06/24/18 09/22/21 History traZODone HCL 50 mg PO HS 06/24/18 09/22/21 History Losartan [Cozaar] 50 mg PO HS 09/05/18 09/22/21 History carvediloL [Coreg] 6.25 mg PO AC-BID #180 tab 09/21/18 09/22/21 Rx Furosemide [Lasix] 20 mg PO DAILY 06/03/20 09/22/21 History amLODIPine [Norvasc] 5 mg PO DAILY 06/03/20 09/22/21 History clonazePAM [KlonoPIN] 1 mg PO BID PRN 06/03/20 09/22/21 History Acetaminophen-Codeine 300-30mg 2 tab PO TID PRN 09/10/21 09/22/21 History [Tylenol w/codeine #3] Atorvastatin [Lipitor] 40 mg PO HS 09/10/21 09/22/21 History Multivitamins, Thera [Multivitamin 1 tab PO DAILY 09/10/21 09/22/21 History (formulary)] Omeprazole [PriLOSEC] 20 mg PO DAILY 09/10/21 09/22/21 History Vitamin E 400 unit PO DAILY 09/10/21 09/22/21 History Calamine/Zinc Oxide Lotion 1 applic TOPICAL BID PRN each 09/15/21 09/22/21 Rx [Calamine Lotion] Allergies Allergy/AdvReac Type Severity Reaction Status Date / Time amoxicillin AdvReac Diarrhea Verified 09/22/21 17:24 Surgical - Exam - General no distress - Eyes normal ocular movement - Neck trachea midline - Respiratory normal respiratory effort, clear to auscultation - Cardiovascular Rhythm: regular Heart Sounds: normal: S1, S2 - Abdomen Abdomen: soft, non tender, no guarding, no rigid, no rebound - Integumentary normal turgor - Neurologic no disoriented, no combative - Musculoskeletal normal gait - Psychiatric oriented to time, oriented to person, oriented to place, speech is normal, memory intact Breast Exam: BRA: 36C Inspection: Right breast smaller than left breast, in the upper medial breast there is a subcutaneous area of nodularity which may be fixed to the muscle underneath Palpation: Right breast: Multi-positional exam post surgical and radiation changes in the medial upper breast there is an area of nodularity approximately 5-8 mm in size there is question as to whether this is fixed to the chest wall Right axilla: No adenopathy of concern {: Multi-positional exam no dominant masses or nodules of concern Left axilla: No adenopathy of concern Results Patient's last mammogram was in August 2021 Assessment and Plan Assessment: Impression: Patient status post right breast lumpectomy axillary node sampling approximately 20 years ago Patient recently has noted some increased nodularity in the right chest wall area Plan: Bilateral diagnostic mammogram at this time Right breast ultrasound Follow up after radiographic studies obtain records regarding right breast cancer done at [facility] CC: Dr. Callum Cain
[2022-05-15 16:25] VITALS: BP 172/86; PULSE 92; RESP 16; TEMP 98.6
== END ==
LOC: WWCWWP 15:44
PROVIDERS: ATTEND Surgery
DX: Z85.3 Personal history of malignant neoplasm of breast (principal); C50.911 Malignant neoplasm of unspecified site of right female breast; F41.9 Anxiety disorder, unspecified; I50.9 Heart failure, unspecified; I11.0 Hypertensive heart disease with heart failure; J44.9 Chronic obstructive pulmonary disease, unspecified; M19.90 Unspecified osteoarthritis, unspecified site; M79.7 Fibromyalgia; M81.0 Age-related osteoporosis without current pathological fracture; Z79.02 Long term (current) use of antithrombotics/antiplatelets; Z80.3 Family history of malignant neoplasm of breast; Z86.73 Personal history of transient ischemic attack (TIA), and cerebral infarction without residual deficits; Z87.891 Personal history of nicotine dependence; Z88.0 Allergy status to penicillin; Z92.3 Personal history of irradiation; Z95.5 Presence of coronary angioplasty implant and graft; Z90.49 Acquired absence of other specified parts of digestive tract

== ENCOUNTER → 2022-05-22 | Outpatient (CLI) | payer MEDICARE, OTHER ==
--- NOTE | 2022-05-22 14:36 | MM ---
Reason for Exam: Follow-up at short interval from prior study. Last screening mammogram was performed 8 month(s) ago. Patient History: Menarche at age 10. First Full-Term at age 17. Postmenopausal. Breast cancer, age 54. Previous chest radiation therapy at age 54. Hormonal Contraceptives for 29 years from age 25 until age 54. Lumpectomy on the Right side. Radiation Therapy, right. Sister had breast cancer. Sister had breast cancer. Sister had breast cancer. Prior Study Comparison: 05/10/2018 Bilateral Screening Mammogram, [facility]. 09/19/2021 Bilateral MG 3D screening mammo w/cad, [facility]. Tissue Density: The breast tissue is heterogeneously dense. This may lower the sensitivity of mammography. Findings: Analyzed By CAD. Vague nodular density noted at the site of clinical concern right breast. Post operative changes of right-sided lumpectomy with stable benign calcifications. Persistent 6 mm density upper outer left breast 3.6 cm from the nipple. Ultrasound is recommended bilaterally. Overall Assessment: Incomplete: need additional imaging evaluation, BI-RAD 0 Management: Diagnostic Breast Ultrasound of both breasts. A clinical breast exam by your physician is recommended on an annual basis and results should be correlated with mammographic findings. This exam should not preclude additional follow-up of suspicious palpable abnormalities. Results were given to the patient verbally at the time of exam. Electronically signed and approved by: Arturo Lemon M.D. Radiologis
--- NOTE | 2022-05-22 15:35 | USB ---
Reason for Exam: Additional evaluation requested from prior study. Patient History: Menarche at age 10. First Full-Term at age 17. Postmenopausal. Breast cancer, age 54. Previous chest radiation therapy at age 54. Hormonal Contraceptives for 29 years from age 25 until age 54. Lumpectomy on the Right side. Radiation Therapy, right. Sister had breast cancer. Sister had breast cancer. Sister had breast cancer. Technique: Method: Targeted. Prior Study Comparison: 05/10/2018 Bilateral Screening Mammogram, [facility]. 09/19/2021 Bilateral MG 3D screening mammo w/cad, [facility]. Findings: The upper outer quadrant of the left breast, the upper inner quadrant of the right breast, the area of palpable concern of the right breast, the axilla of both breasts and the retroareolar of both breasts were scanned. Focal calcification at the site of a palpable abnormality right breast. No solid masses seen. The left breast at the 2:00 position 6 cm from the level is a small hypoechoic area which may reflect a small cyst. Follow-up is advised.. Overall Assessment: Probably benign, BI-RAD 3 Management: Diagnostic Mammogram of the left breast. A clinical breast exam by your physician is recommended on an annual basis and results should be correlated with mammographic findings. This exam should not preclude additional follow-up of suspicious palpable abnormalities. Results were given to the patient verbally at the time of exam. Electronically signed and approved by: Arturo Lemon M.D. Radiologis
== END | disposition home or self-care (01) ==
LOC: RADMAMWWP 13:40
PROVIDERS: ATTEND Surgery
DX: R92.1 Mammographic calcification found on diagnostic imaging of breast (principal); Z85.3 Personal history of malignant neoplasm of breast; Z78.0 Asymptomatic menopausal state; Z80.3 Family history of malignant neoplasm of breast; Z92.3 Personal history of irradiation
CPT/HCPCS: 77066; 76642; G0279; 77062

== ENCOUNTER → 2022-06-17 | Day surgery (SDC) | payer MEDICARE, OTHER ==
--- NOTE | 2022-06-18 14:24 | USB ---
Findings: Imaged: Targeted imaging of the lesion in question. Patient was brought to the procedure suite was determined that the lesion in question is 2 mm from the skin surface and the subcutaneous tissues around the lesion were not thickened up to safely access. Management: Surgical Consultation of the right breast. Ordering provider was contacted at the time of cancellation. Patient to follow up with ordering provider. A clinical breast exam by your physician is recommended on an annual basis and results should be correlated with mammographic findings. This exam should not preclude additional follow-up of suspicious palpable abnormalities. Results were given to the patient verbally at the time of exam. Electronically signed and approved by: Oscar Montoya DO
== END ==
LOC: RADUSWWP 12:34
PROVIDERS: ATTEND Surgery
DX: Z53.8 Procedure and treatment not carried out for other reasons (principal); R92.8 Other abnormal and inconclusive findings on diagnostic imaging of breast

== ENCOUNTER → 2022-07-15 | Outpatient (CLI) | payer MEDICARE, OTHER ==
--- NOTE | 2022-07-17 06:41 | BMR ---
EXAMINATION TYPE: MR breast BILAT wo/w con DATE OF EXAM: 07/15/2022 COMPARISON: Bilateral breast mammogram May 22, 2022 BI-RADS 0. Bilateral limited breast ultrasound May 22, 2022 BI-RADS 3 HISTORY: History of breast cancer approximately 27 years ago. Lumpectomy of right breast. TECHNIQUE: A series of fat and water weighted images in the long and short axis views of both breasts are obtained in conjunction with dynamic contrast MRI with subtraction technique. The patient was i njected with 5 mL intravenous Gadavist gadolinium contrast. Three-dimensional and additional postpr ocessing imaging is created on independent workstation and reviewed . FINDINGS: Asymmetric diminished size to right breast versus left breast consistent with lumpectomy an d posttreatment changes is redemonstrated. No suspicious axillary adenopathy is seen bilaterally. The re are no concerning cystic masses or fluid collections seen in either breast. Scattered glandular ti ssue bilaterally is redemonstrated. Dynamic postcontrast imaging shows mild background enhancement. With regards to the left breast there is no abnormal skin thickening seen. No pathologic enhancement or enhancing masses are noted. The chest wall is intact. With regards to the right breast there is no pathologic enhancement or enhancing masses identified. N o abnormal skin thickening is seen. Chest wall is intact. IMPRESSION: No MRI evidence for invasive malignancy in either breast. BI-RADS 2 benign findings bilaterally Recommendation: Palpable lesion with ultrasound corresponding abnormality require sampling. Patient d ue for bilateral breast mammogram May 23, 2023.
== END | disposition home or self-care (01) ==
LOC: RADMRIMAIN 17:20
PROVIDERS: ATTEND Surgery
DX: Z85.3 Personal history of malignant neoplasm of breast (principal)
CPT/HCPCS: C8908; A9585; 77049

== ENCOUNTER → 2022-07-30 | Outpatient (CLI) | payer MEDICARE, OTHER ==
[2022-07-30 15:31] VITALS: BP 146/69; PULSE 84; RESP 17; TEMP 97.8
--- NOTE | 2022-07-30 16:03 | P.PN ---
Subjective Progress Note Date: 07/30/22 Olena is an 81 year old white female seen in consultation for DR. Callum Cain regarding a lump in her right breast. She noted this about two weeks ago. It is not painful. She had a right breast lumpectomy and radiation therapy 20 years ago. She did not have any chemotherapy. She did take hormone therapy for a period of time[place] [address] which was BIRADS 2. She is not complaining of any trauma or infection in her breast. She has developed lymphedema in the last year. The patient has had extensive radiographic evaluation of the nodule in her right breast most recently a bilateral MRI performed on which did not reveal any evidence of cancer in either breast. Caffiene: 1 cup/day nicotine: none, stopped 40 years ago chocolate: daily BCP: 10 years hormones: none Family History: 4 sisters, 1 brother 3 sisters: breast cancer, (two over 50 and one under 50) sister: lymphoma maternal aunt: breast cancer Hormonal History: menarche: 10 , breast fed: yes, age at first : 17 menopause: 50 Surgical History: right breast lumpectomy and node sampling cataract bilateral thyroid 75% removed no cancer gallbaldder Cardiac and subclavian stents Medical History: anxiety HTN fibromyalgia COPD Social History: nicotine: none alcohol: occasional drugs: none - Constitutional Constitutional: Denies chills, Denies fever - EENT Eyes: denies blurred vision, denies pain Ears: bilateral: tinnitus, deny: decreased hearing Ears, nose, mouth and throat: Denies headache, Denies sore throat - Breasts Breasts: bilateral: as per HPI - Cardiovascular Cardiovascular: Reports as per HPI, Reports chest pain, Denies shortness of breath - Respiratory Respiratory: Reports cough - Gastrointestinal Gastrointestinal: Denies abdominal pain, Denies diarrhea, Denies nausea, Denies vomiting - Genitourinary (Female) Genitourinary: Denies dysuria, Denies hematuria - Menstruation Menstruation: Reports postmenopausal - Musculoskeletal Comment: back pain, fibromyalgia - Integumentary Comment: right arm lymphedema - Neurological Comment: syncope - Psychiatric Psychiatric: Reports anxiety - Endocrine Endocrine: Denies fatigue, Denies weight change - Hematologic/Lymphatic Comment: aspirin and plavix - Allergic/Immunologic Allergic/Immunologic: Reports as per HPI Past Medical History Past Medical History: Cancer, Heart Failure, COPD, CVA/TIA, Fibromyalgia, Osteoarthritis (OA), Thyroid Disorder Additional Past Medical History / Comment(s): 2011 carbon monoxide posioning(caused a stroke), breast cancer, "low blood pressure, they have trouble getting a blood pressure reading on my left arm", bronchitits, osteoporosis. History of Any Multi-Drug Resistant Organisms: None Reported Past Surgical History: Breast Surgery, Cholecystectomy, Heart Catheterization, Heart Catheterization With Stent Additional Past Surgical History / Comment(s): Thyroidectomy, right breast lumpectomy. 2 stent to LAD, cataract removal sx with permanent contact lenses. Past Anesthesia/Blood Transfusion Reactions: No Reported Reaction Date of Last Stent Placement:: 09/20/18 Past Psychological History: Anxiety Smoking Status: Former smoker Past Alcohol Use History: Rare Additional Past Alcohol Use History / Comment(s): Quit smoking in her 40's, started smoking age 14, 1 PPD. Past Drug Use History: None Reported - Past Family History Sister(s) Family Medical History: Cancer Medications and Allergies Home Medications Medication Instructions Recorded Confirmed Type Alendronate Sodium 70 mg PO WE 06/24/18 09/22/21 History Clopidogrel [Plavix] 75 mg PO DAILY 06/24/18 09/22/21 History DULoxetine HCL [Cymbalta] 20 mg PO BID 06/24/18 09/22/21 History Levothyroxine Sodium [Synthroid] 50 mcg PO DAILY 06/24/18 09/22/21 History rOPINIRole HCL [Requip] 2 mg PO HS 06/24/18 09/22/21 History traZODone HCL 50 mg PO HS 06/24/18 09/22/21 History Losartan [Cozaar] 50 mg PO HS 09/05/18 09/22/21 History carvediloL [Coreg] 6.25 mg PO AC-BID #180 tab 09/21/18 09/22/21 Rx Furosemide [Lasix] 20 mg PO DAILY 06/03/20 09/22/21 History amLODIPine [Norvasc] 5 mg PO DAILY 06/03/20 09/22/21 History clonazePAM [KlonoPIN] 1 mg PO BID PRN 06/03/20 09/22/21 History Acetaminophen-Codeine 300-30mg 2 tab PO TID PRN 09/10/21 09/22/21 History [Tylenol w/codeine #3] Atorvastatin [Lipitor] 40 mg PO HS 09/10/21 09/22/21 History Multivitamins, Thera [Multivitamin 1 tab PO DAILY 09/10/21 09/22/21 History (formulary)] Omeprazole [PriLOSEC] 20 mg PO DAILY 09/10/21 09/22/21 History Vitamin E 400 unit PO DAILY 09/10/21 09/22/21 History Calamine/Zinc Oxide Lotion 1 applic TOPICAL BID PRN each 09/15/21 09/22/21 Rx [Calamine Lotion] Allergies Allergy/AdvReac Type Severity Reaction Status Date / Time amoxicillin AdvReac Diarrhea Verified 09/22/21 17:24 Objective - Vital Signs Vital signs: Vital Signs Temp 97.8 F 07/30/22 15:29 Pulse 84 07/30/22 15:29 Resp 17 07/30/22 15:29 BP 146/69 07/30/22 15:29 Pulse Ox 95 07/30/22 15:29 FiO2 Intake & Output 07/29/22 07/30/22 07/30/22 18:59 06:59 18:59 Weight 51.256 kg - Constitutional General appearance: Present: cooperative - EENT Eyes: Present: EOMI ENT: Present: hearing grossly normal - Neck Neck: Present: normal ROM - Respiratory Respiratory: bilateral: CTA - Cardiovascular Heart sounds: normal: S1, S2 - Gastrointestinal General gastrointestinal: Present: soft - Integumentary Integumentary Comment(s): bruise over left chest wall patient fell Integumentary: Present: normal turgor - Psychiatric Psychiatric: Present: A&O x's 3, appropriate affect, intact judgment & insight - Additional findings Additional findings: Breast Exam: BRA: 36C Inspection: Right breast smaller than left breast, in the upper medial breast there is a subcutaneous area of nodularity which may be fixed to the muscle underneath Palpation: Right breast: Multi-positional exam post surgical and radiation changes in the medial upper breast there is an area of nodularity approximately 5-8 mm in size there is question as to whether this is fixed to the chest wall Right axilla: No adenopathy of concern left breast: Multi-positional exam no dominant masses or nodules of concern Left axilla: No adenopathy of concern Assessment and Plan Assessment: Impression: Patient status post right breast lumpectomy axillary node sampling approximately 20 years ago Patient recently has noted some increased nodularity in the right chest wall area; ? if this was fixed does not seem to be so on MRI Plan: Bilateral diagnostic mammogram 05-22-22 followed by bilateral ultrasound of the breast on 330 123 this was benign BIRADS 3 and repeat diagnostic mammogram of the left breast The patient had an attempt at an ultrasound-guided core biopsy which was canceled the patient then underwent a bilateral MRI of the breast on 520 423 which revealed no MRI evidence of invasive malignancy in either breast POC only way to evaluate the area of nodularity in the right breast despite extensive excisional biopsy. The risks and benefits of the procedure discussed with the patient and her daughter. Risks include but are not limited to bleeding, infection, reaction to the anesthetic. Plan surgical resection of palpable mass in the right breast. We have attempted ultrasound-guided biopsy that the radiologist did not feel that this was possible. clearance form DR. Callum Cain CC: Dr. Callum Cain
== END ==
LOC: WWCWWP 15:22
PROVIDERS: ATTEND Surgery
DX: Z90.11 Acquired absence of right breast and nipple (principal); J44.9 Chronic obstructive pulmonary disease, unspecified; F41.9 Anxiety disorder, unspecified; M79.7 Fibromyalgia; M19.90 Unspecified osteoarthritis, unspecified site; E07.9 Disorder of thyroid, unspecified; I11.0 Hypertensive heart disease with heart failure; Z80.3 Family history of malignant neoplasm of breast; Z85.3 Personal history of malignant neoplasm of breast; Z79.890 Hormone replacement therapy; Z88.0 Allergy status to penicillin; Z87.891 Personal history of nicotine dependence; Z86.73 Personal history of transient ischemic attack (TIA), and cerebral infarction without residual deficits; Z90.49 Acquired absence of other specified parts of digestive tract; Z95.5 Presence of coronary angioplasty implant and graft

== ENCOUNTER → 2022-10-29 | Outpatient (CLI) | payer MEDICARE, OTHER ==
--- NOTE | 2022-10-29 17:30 | MM ---
Reason for Exam: Follow-up at short interval from prior study. Last screening mammogram was performed 6 month(s) ago. Patient History: Menarche at age 10. First Full-Term at age 17. Postmenopausal. Breast cancer, right, age 54. Previous chest radiation therapy at age 54. Hormonal Contraceptives for 29 years from age 25 until age 54. Lumpectomy on the Right side. 06/17/2022, US discontinued breast core RT on the right side. Radiation Therapy, right. Sister (Chikis) had breast cancer, age 56. Sister (Shanita) had breast cancer under age 50. Sister (Keri) had breast cancer, age 83. Prior Study Comparison: 05/10/2018 Bilateral Screening Mammogram, [facility]. 09/19/2021 Bilateral MG 3D screening mammo w/cad, [facility]. 05/22/2022 Bilateral MG 3D diag mammo w/cad [facility], [facility]. Tissue Density: Left: There are scattered fibroglandular densities. Findings: Analyzed By CAD. The previous upper outer quadrant nodular focal asymmetry has resolved. Given the previous ultrasound appearance, suspect a small area of bruising/hematoma. No significant change from prior exams. Overall Assessment: Incomplete: need additional imaging evaluation, BI-RAD 0 Management: Diagnostic Breast Ultrasound of the left breast. Electronically signed and approved by: Bob Noriega M.D. Radiologist
--- NOTE | 2022-10-29 17:32 | USB ---
Reason for Exam: High risk patient. Patient History: Menarche at age 10. First Full-Term at age 17. Postmenopausal. Breast cancer, right, age 54. Previous chest radiation therapy at age 54. Hormonal Contraceptives for 29 years from age 25 until age 54. Lumpectomy on the Right side. 06/17/2022, US discontinued breast core RT on the right side. Radiation Therapy, right. Sister (Chikis) had breast cancer, age 56. Sister (Shanita) had breast cancer under age 50. Sister (Keri) had breast cancer, age 83. Prior Study Comparison: 05/10/2018 Bilateral Screening Mammogram, [facility]. 09/19/2021 Bilateral MG 3D screening mammo w/cad, [facility]. 05/22/2022 Bilateral MG 3D diag mammo w/cad [facility], [facility]. Findings: The whole breast of the left breast, the axilla of the left breast and the retroareolar of the left breast were scanned. A complete US of all four quadrants of the breast, axilla, and retro-areolar region were reviewed. No solid or cystic masses are identified. The previous 2:00 hypoechoic lesion has resolved. Suspect a previous small area of bruising/hematoma. Overall Assessment: Suspicious, BI-RAD 4 Management: Surgical Consultation of the right breast. Proceed with surgery on the right for the palpable abnormality as planned. Results were given to the patient verbally at the time of exam. Electronically signed and approved by: Bob Noriega M.D. Radiologist
== END | disposition home or self-care (01) ==
LOC: RADMAMWWP 16:48
PROVIDERS: ATTEND Surgery
DX: R92.8 Other abnormal and inconclusive findings on diagnostic imaging of breast (principal); Z78.0 Asymptomatic menopausal state; Z85.3 Personal history of malignant neoplasm of breast; Z80.3 Family history of malignant neoplasm of breast; Z92.3 Personal history of irradiation
CPT/HCPCS: 77065; 76641; G0279; 77061

== ENCOUNTER 2022-11-03 07:15 | Day surgery (SDC) | payer MEDICARE, OTHER ==
[~2022-11-03 07:15] MED LIST changes: -ALPRAZolam 0.25 MG TAB PO PRN; -ALPRAZolam 0.5 MG TAB PO PRN; -ASPIRIN 325 MG TAB PO STA; -ATORVASTATIN 80 MG TAB PO STA; +HEPARIN SODIUM,PORCINE/PF 5,000 UNIT/0.5 ML SYRINGE SQ PRN; -NITROGLYCERIN SL TABS 0.4 MG TAB SUBLINGUAL PRN; -SODIUM CHLORIDE 0.9% 1,000 ML in EMPTY BAG 1 BAG IV ONE
[2022-11-03] MEDS ORDERED: fentaNYL (PF) 50 MCG/ML 2 ML AMP IV PRN (07:55)
[2022-11-03] MEDS ORDERED: ONDANSETRON 4 MG/2 ML VIAL IVP ONE (07:55)
[2022-11-03] MEDS ORDERED: LACTATED RINGERS 1,000 ML IV SCH (07:55)
[2022-11-03] MEDS ORDERED: HYDROmorphone 0.5 MG/0.5 ML SYRINGE IVP PRN (07:55)
[2022-11-03] MEDS ORDERED: LIDOCAINE 2% INJ 20 MG/ML (2 ML VIAL) ONE (08:28)
[2022-11-03] MEDS ORDERED: ePHEDrine 50 MG/ML 1 ML VIAL ONE (08:28)
[2022-11-03] MEDS ORDERED: PROPOFOL 10 MG/ML 20 ML VIAL IV ONE (08:28)
[2022-11-03] MEDS ORDERED: PHENYLEPHRINE-0.9% NACL SYG 1,000 MCG/10 ML SYRINGE ONE (08:28)
[2022-11-03] MEDS ORDERED: DEXAMETHASONE SOD PHOSPHATE 4 MG/ML 1 ML VIAL IVP ONE (08:29)
--- NOTE | 2022-11-03 09:09 | P.OP ---
Date of Procedure: 11/03/22 Preoperative Diagnosis: Mass right breast Postoperative Diagnosis: Same Procedure(s) Performed: Excision mass right breast Anesthesia: GETA Surgeon: Brenna Solomon Estimated Blood Loss (ml): 2 IV fluids (ml): 200 Pathology: other (Breast tissue) Condition: stable Disposition: same day Indications for Procedure: Mass right breast, attempt at radiographic biopsy unsuccessful Operative Findings: Probable calcified tissue Description of Procedure: The patient was taken to the operative suite and following induction of anesthesia the right breast was prepped and draped in a sterile fashion. Wide excision was performed of the palpable mass in the right breast in the upper inner quadrant area. This was approximately 5 mm in size. This was firm and protruded down onto the muscle of the chest wall. After wide excision the wound was evaluated for hemostasis. After assured that hemostasis was attained the deep tissues were brought together using 3-0 Vicryl suture. The skin was closed using 4-0 Monocryl. Steri-Strips were placed. The specimen was painted for orientation. The patient will follow-up with Dr. Cain next week.
[2022-11-03 09:29] VITALS: TEMP 97.7
--- NOTE | 2022-11-03 09:48 | P.DS ---
Providers Attending physician: Brenna Solomon Primary care physician: Callum Cain Plan - Discharge Summary New Discharge Prescriptions: New Acetaminophen-Codeine 300-30mg [Tylenol w/codeine #3] 1 tab PO Q6H PRN 3 Days #7 tablet PRN Reason: pain No Action traZODone HCL 50 mg PO HS rOPINIRole HCL [Requip] 2 mg PO HS Alendronate Sodium 70 mg PO WE Levothyroxine Sodium [Synthroid] 50 mcg PO DAILY DULoxetine HCL [Cymbalta] 20 mg PO BID Clopidogrel [Plavix] 75 mg PO DAILY Losartan [Cozaar] 50 mg PO HS carvediloL [Coreg] 6.25 mg PO AC-BID #180 tab amLODIPine [Norvasc] 5 mg PO DAILY clonazePAM [KlonoPIN] 1 mg PO BID PRN PRN Reason: Anxiety Acetaminophen-Codeine 300-30mg [Tylenol w/codeine #3] 2 tab PO TID PRN PRN Reason: Pain Aspirin EC [Ecotrin Low Dose] 81 mg PO DAILY Calcium(Unk) 1,200 mg PO DAILY Vitamin E 400 unit PO DAILY Omeprazole [PriLOSEC] 20 mg PO DAILY Multivitamins, Thera [Multivitamin (formulary)] 1 tab PO DAILY Rosuvastatin [Crestor] 10 mg PO DAILY Discharge Medication List Alendronate Sodium 70 mg PO WE 06/24/18 [History] Clopidogrel [Plavix] 75 mg PO DAILY 06/24/18 [History] DULoxetine HCL [Cymbalta] 20 mg PO BID 06/24/18 [History] Levothyroxine Sodium [Synthroid] 50 mcg PO DAILY 06/24/18 [History] rOPINIRole HCL [Requip] 2 mg PO HS 06/24/18 [History] traZODone HCL 50 mg PO HS 06/24/18 [History] Losartan [Cozaar] 50 mg PO HS 09/05/18 [History] carvediloL [Coreg] 6.25 mg PO AC-BID #180 tab 09/21/18 [Rx] amLODIPine [Norvasc] 5 mg PO DAILY 06/03/20 [History] clonazePAM [KlonoPIN] 1 mg PO BID PRN 06/03/20 [History] Acetaminophen-Codeine 300-30mg [Tylenol w/codeine #3] 2 tab PO TID PRN 09/10/21 [History] Multivitamins, Thera [Multivitamin (formulary)] 1 tab PO DAILY 09/10/21 [History] Omeprazole [PriLOSEC] 20 mg PO DAILY 09/10/21 [History] Vitamin E 400 unit PO DAILY 09/10/21 [History] Rosuvastatin [Crestor] 10 mg PO DAILY 05/15/22 [History] Aspirin EC [Ecotrin Low Dose] 81 mg PO DAILY 05/29/22 [History] Calcium(Unk) 1,200 mg PO DAILY 09/21/22 [History] Acetaminophen-Codeine 300-30mg [Tylenol w/codeine #3] 1 tab PO Q6H PRN 3 Days #7 tablet 11/03/22 [Rx] Follow up Appointment(s)/Referral(s): Brenna Solomon MD [STAFF PHYSICIAN] - 1 Week Activity/Diet/Wound Care/Special Instructions: do not drive for 24 hours fro discharge or if taking narcotic pain medicine may shower after 48 hours Discharge Disposition: HOME SELF-CARE
[2022-11-03] MEDS ORDERED: hydrALAZINE HCL 20 MG/ML 1 ML VIAL IVP ONE (10:33)
[2022-11-03 11:26] VITALS: RESP 20
[2022-11-03] MEDS ORDERED: Acetaminophen-Codeine 300-30mg TAB ONE (11:28)
[2022-11-03] MEDS ORDERED: Acetaminophen-Codeine 300-30mg TAB PO ONE (11:32)
[2022-11-03 12:30] VITALS: BP 136/66; PULSE 72
== END 2022-11-03 13:28 | disposition home or self-care (01) ==
LOC: OR 07:15
PROVIDERS: ATTEND Surgery
DX: N63.10 Unspecified lump in the right breast, unspecified quadrant (principal); Z85.3 Personal history of malignant neoplasm of breast; Z79.02 Long term (current) use of antithrombotics/antiplatelets; Z79.82 Long term (current) use of aspirin; Z79.899 Other long term (current) drug therapy
CPT/HCPCS: 19301; J0360; J1100; J0690; J2405; J2704; J1170; J1644; J2001; J2371; 88305

== ENCOUNTER → 2022-11-12 | Outpatient (CLI) | payer MEDICARE, OTHER ==
--- NOTE | 2022-11-12 15:48 | P.PN ---
Progress Note - Text Progress Note Date: 11/12/22 Olena is status post resection of lesion in the right breast, pathology benign. The patient had a bilateral mammogram on 330 123 after which it was recommended that she undergo bilateral breast ultrasound. The bilateral breast ultrasound was performed on the same date. This revealed focal calcification at the site of the palpable abnormality right breast as well as in the left breast at the 2 o'clock position a small cyst in follow-up was recommended. A diagnostic mammogram of the left breast was recommended. The patient subsequently underwent a left breast diagnostic mammogram and ultrasound on 97. This was felt to be no lesions of concern in the left breast but in the right breast surgical consult was recommended for persistent palpable lesion. Additionally the patient underwent a bilateral breast MRI on 520 423 which was benign BIRADS 2. The patient underwent a surgical resection of the palpable mass in the right breast on which was benign. Examination: lungs: clear heart: RRR incision clean and dry Plan: bilateral mammogram June 2023 with appointment at that time CC: Dr. Callum Cain
[2022-11-12 15:52] VITALS: BP 137/75; PULSE 84; RESP 16; TEMP 98.3
== END ==
LOC: WWCWWP 15:20
PROVIDERS: ATTEND Surgery
DX: Z04.89 Encounter for examination and observation for other specified reasons (principal); Z88.0 Allergy status to penicillin; Z87.891 Personal history of nicotine dependence

== ENCOUNTER 2022-12-23 19:48 | Emergency (ER) | payer MEDICARE, OTHER ==
[2022-12-23 20:38] LABS: Basophils % (A) 1 %; Eosinophils # (A) 0.2 k/uL (0-0.7); Eosinophils % (A) 3 %; HCT 42.3 % (34.0-46.0); HGB 14.1 gm/dL (11.4-16.0); Lymphocytes # (A) 1.6 k/uL (1.0-4.8); Lymphocytes % (A) 28 %; MCH 29.5 pg (25.0-35.0); MCHC 33.4 g/dL (31.0-37.0); MCV 88.2 fL (80.0-100.0); Monocytes # (A) 0.3 k/uL (0-1.0); Monocytes % (A) 5 %; Neutrophils # (A) 3.7 k/uL (1.3-7.7); Neutrophils % (A) 62 %; Platelet Count 206 k/uL (150-450); RDW 13.6 % (11.5-15.5); WBC 5.9 k/uL (3.8-10.6)
[2022-12-23 20:46] LABS: AST 34 U/L (14-36); African American GFR (CKD) 72 (>60 ml/min/1.73 sqM); Albumin 4.1 g/dL (3.5-5.0); Blood Urea Nitrogen 14 mg/dL (7-17); Carbon Dioxide 26 mmol/L (22-30); Glucose 138 mg/dL (74-99); INR 0.9 (<1.2); Non-African American GFR(CKD) 62 (>60 ml/min/1.73 sqM); Partial Thromboplastin Time 26.4 sec (22.0-30.0); Prothrombin Time 10.4 sec (10.0-12.5); Total Bilirubin 0.5 mg/dL (0.2-1.3)
[2022-12-23 21:36] LABS: ALT 19 U/L (4-34); Alkaline Phosphatase 60 U/L (38-126); Anion Gap 11 mmol/L; Calcium 9.4 mg/dL (8.4-10.2); Chloride 104 mmol/L (98-107); Potassium 4.3 mmol/L (3.5-5.1); Sodium 141 mmol/L (137-145)
--- NOTE | 2022-12-23 22:55 | ED ---
General Adult HPI - General Source: patient Mode of arrival: wheelchair Limitations: no limitations <Glenn Song - Last Filed: 12/24/22 00:05> <Aaron Wray - Last Filed: 12/24/22 13:35> - General Chief complaint: Weakness Stated complaint: Weakness,dizziness,sob Time Seen by Provider: 12/23/22 22:25 - History of Present Illness Initial comments: Dictation was produced using [employer] dictation software. please excuse any grammatical, word or spelling errors. 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 States that she's been confused ever since then. She is 82 and lives in a assisted living facility. She is distraught because her boyfriend's daughter wants them not to date. She had a confrontation with her today and states that she was crying because her boyfriend's daughter told her a lot of mean things. She told her children were at the bedside that she was suicidal. Patient has no other complaints. The ROS documented in this emergency department record has been reviewed and confirmed by me. Those systems with pertinent positive or negative responses have been documented in the HPI. All other systems are other negative and/or noncontributory. (Glenn Song) - Related Data Home Medications Medication Instructions Recorded Confirmed Alendronate Sodium 70 mg PO WE 06/24/18 11/12/22 Clopidogrel [Plavix] 75 mg PO DAILY 06/24/18 11/12/22 DULoxetine HCL [Cymbalta] 20 mg PO BID 06/24/18 11/12/22 Levothyroxine Sodium [Synthroid] 50 mcg PO DAILY 06/24/18 11/12/22 rOPINIRole HCL [Requip] 2 mg PO HS 06/24/18 11/12/22 traZODone HCL 50 mg PO HS 06/24/18 11/12/22 Losartan [Cozaar] 50 mg PO HS 09/05/18 11/12/22 amLODIPine [Norvasc] 5 mg PO DAILY 06/03/20 11/12/22 clonazePAM [KlonoPIN] 1 mg PO BID PRN 06/03/20 11/12/22 Acetaminophen-Codeine 300-30mg 2 tab PO TID PRN 09/10/21 11/12/22 [Tylenol w/codeine #3] Multivitamins, Thera [Multivitamin 1 tab PO DAILY 09/10/21 11/12/22 (formulary)] Omeprazole [PriLOSEC] 20 mg PO DAILY 09/10/21 11/12/22 Vitamin E 400 unit PO DAILY 09/10/21 11/12/22 Rosuvastatin [Crestor] 10 mg PO DAILY 05/15/22 11/12/22 Aspirin EC [Ecotrin Low Dose] 81 mg PO DAILY 05/29/22 11/12/22 Calcium(Unk) 1,200 mg PO DAILY 09/21/22 11/12/22 Previous Rx's Medication Instructions Recorded carvediloL [Coreg] 6.25 mg PO AC-BID #180 tab 09/21/18 Acetaminophen-Codeine 300-30mg 1 tab PO Q6H PRN 3 Days #7 tablet 11/03/22 [Tylenol w/codeine #3] Allergies Allergy/AdvReac Type Severity Reaction Status Date / Time amoxicillin AdvReac Diarrhea Verified 12/23/22 20:03 Review of Systems ROS Other: All systems not noted in ROS Statement are negative. <Glenn Song - Last Filed: 12/24/22 00:05> ROS Other: All systems not noted in ROS Statement are negative. <Aaron Wray - Last Filed: 12/24/22 13:35> ROS Statement: Those systems with pertinent positive or pertinent negative responses have been documented in the HPI. Past Medical History Past Medical History: Cancer, Heart Failure, COPD, CVA/TIA, Fibromyalgia, Osteoarthritis (OA), Thyroid Disorder Additional Past Medical History / Comment(s): 2011 carbon monoxide posioning(caused a stroke), breast cancer, "low blood pressure, they have trouble getting a blood pressure reading on my left arm", bronchitits, osteoporo sis. Vertigo History of Any Multi-Drug Resistant Organisms: None Reported Past Surgical History: Breast Surgery, Cholecystectomy, Heart Catheterization, Heart Catheterization With Stent Additional Past Surgical History / Comment(s): Thyroidectomy, right breast lumpectomy. 3 stent to LAD, bilat cataract removal sx with permanent contact lenses. Past Anesthesia/Blood Transfusion Reactions: No Reported Reaction Date of Last Stent Placement:: 09/20/20 Past Psychological History: Anxiety Smoking Status: Former smoker Past Alcohol Use History: Rare Past Drug Use History: None Reported - Past Family History Sister(s) Family Medical History: Cancer <Glenn Song - Last Filed: 12/24/22 00:05> General Exam Limitations: no limitations <Glenn Song - Last Filed: 12/24/22 00:05> - General Exam Comments Initial Comments: PHYSICAL EXAM: General Impression: Alert and oriented x3, not in acute distress HEENT: Normocephalic atraumatic, extra-ocular movements intact, pupils equal and reactive to light bilaterally, mucous membranes moist. Cardiovascular: Heart regular rate and rhythm Chest: Able to complete full sentences, no retractions, no tachypnea Abdomen: abdomen soft, non-tender, non-distended, no organomegaly Musculoskeletal: Pulses present and equal in all extremities, no peripheral edema Motor: no focal deficits noted Neurological: CN II-XII grossly intact, no focal motor or sensory deficits noted Skin: Intact with no visualized rashes Psych: Normal affect and mood (Glenn Song) Course Vital Signs 12/23/22 12/24/22 12/24/22 20:03 02:13 11:50 Temperature 98.6 F 98 F 98.0 F Pulse Rate 87 83 88 Respiratory 18 17 18 Rate Blood Pressure 158/77 161/78 188/67 O2 Sat by Pulse 98 98 95 Oximetry Medical Decision Making - Lab Data Result diagrams: 12/23/22 20:13 12/23/22 20:13 <Glenn Song - Last Filed: 12/24/22 00:05> - Lab Data Result diagrams: 12/23/22 20:13 12/23/22 20:13 <Aaron Wray - Last Filed: 12/24/22 13:35> - Medical Decision Making Was pt. sent in by a medical professional or institution (, PA, POWER MULE OPERATOR, urgent care, hospital, or usp...) When possible be specific @ -No Did you speak to anyone other than the patient for history (EMS, parent, family, police, friend...)? What history was obtained from this source @ -Patient's children at the bedside states that she is suicidal Did you review nursing and triage notes (agree or disagree)? Why? @ -I reviewed and agree with nursing and triage notes Were old charts reviewed (outside hosp., previous admission, EMS record, old EKG, old radiological studies, urgent care reports/EKG's, usp records)? Report findings @ -No old charts were reviewed Differential Diagnosis (chest pain, altered mental status, abdominal pain women, abdominal pain men, vaginal bleeding, musculoskeletal, weakness, fever, dyspnea, syncope, headache, dizziness, GI bleed, back pain, seizure, CVA, palpatations, mental health)? @ -Differential Mental Health: Depression, anxiety, bipolar, psychosis, schizophrenia, borderline personality, situational depression, adjustment disorder, behavioral disorder, brain tumor, malingering, substance abuse, encephalopathy, medication reaction, dementia, hypothyroidism, degenerative neurologic disorder, lupus.... This is not meant to be all-inclusive list EKG interpreted by me (3pts min.). @ -My EKG interpretation: Ventricular rate 84, sinus rhythm,. 135, QRS 86, QTC 382. No WV prolongation, no QTC prolongation, no ST or T-wave changes noted. Overall, this EKG is unremarkable X-rays interpreted by me (1pt min.). @ -None done CT interpreted by me (1pt min.). @ -None done U/S interpreted by me (1pt. min.). @ -None done What testing was considered but not performed or refused? (CT, X-rays, U/S, labs)? Why? @ -None What meds were considered but not given or refused? Why? @ -None Did you discuss the management of the patient with other professionals (professionals i.e. , PA, POWER MULE OPERATOR, lab, RT, psych nurse, director of social services, retrofit installer, teacher, chief executive officer, case aide)? Give summary @ -No Was smoking cessation discussed for >3mins.? @ -No Was critical care preformed (if so, how long)? @ -No Were there social determinants of health that impacted care today? How? (Homelessness, low income, unemployed, alcoholism, drug addiction, transportation, low edu. Level, literacy, decrease access to med. care, halfway, rehab)? @ -No Was there de-escalation of care discussed even if they declined (Discuss DNR or withdrawal of care, Hospice)? DNR status @ -No What co-morbidities impacted this encounter? (DM, HTN, Smoking, COPD, CAD, Cancer, CVA, ARF, Chemo, Hep., AIDS, mental health diagnosis, sleep apnea, morbid obesity)? @ -None Was patient admitted / discharged? Hospital course, mention meds given and route, prescriptions, significant lab abnormalities, going to OR and other pertinent info. @ -82-year-old female presents emergency department for alleged dizziness and increased confusion. Patient is well-appearing at bedside vital signs stable. Neurologic exam is unremarkable. Family is more concerned of some suicidal comments that she made. Family requesting the patient be evaluated by EPS. Undiagnosed new problem with uncertain prognosis? @ -No Drug Therapy requiring intensive monitoring for toxicity (Heparin, Nitro, Insulin, Cardizem)? @ -No Were any procedures done? @ -No Diagnosis/symptom? Acute, or Chronic, or Acute on Chronic? Uncomplicated (without systemic symptoms) or Complicated (systemic symptoms)? @ -Suicidal ideation Side effects of treatment? @ -No Exacerbation, Progression, or Severe Exacerbation? @ -No Poses a threat to life or bodily function? How? (Chest pain, USA, MT, pneumonia, PE, COPD, DKA, ARF, appy, cholecystitis, CVA, Diverticulitis, Homicidal, Suicidal, threat to staff... and all critical care pts) @ -yes (Glenn Song) Patient is a 82-year-old female who was medically cleared and pending psychiatric evaluation. EPS evaluated the patient, and determine the patient is cleared for discharge home. Making suicidal statements. However patient does not meet inpatient criteria. She'll be discharged home with a safety plan. I believe this is reasonable. She will be discharged home at this time. Diagnosis/symptom? @ -Encounter for psychiatric evaluation Acute, or Chronic, or Acute on Chronic? @ -Acute Uncomplicated (without systemic symptoms) or Complicated (systemic symptoms)? @ -Uncomplicated Side effects of treatment? @ -none Exacerbation, Progression, or Severe Exacerbation] @ -no Poses a threat to life or bodily function? @ -no (Aaron Wray) - Lab Data Lab Results 12/23/22 12/23/22 12/23/22 Range/Units 20:13 20:13 20:13 WBC 5.9 (3.8-10.6) k/uL RBC 4.80 (3.80-5.40) m/uL Hgb 14.1 (11.4-16.0) gm/dL Hct 42.3 (34.0-46.0) % MCV 88.2 (80.0-100.0) fL MCH 29.5 (25.0-35.0) pg MCHC 33.4 (31.0-37.0) g/dL RDW 13.6 (11.5-15.5) % Plt Count 206 (150-450) k/uL MPV 9.0 Neutrophils % 62 % Lymphocytes % 28 % Monocytes % 5 % Eosinophils % 3 % Basophils % 1 % Neutrophils # 3.7 (1.3-7.7) k/uL Lymphocytes # 1.6 (1.0-4.8) k/uL Monocytes # 0.3 (0-1.0) k/uL Eosinophils # 0.2 (0-0.7) k/uL Basophils # 0.0 (0-0.2) k/uL PT 10.4 (10.0-12.5) sec INR 0.9 (<1.2) APTT 26.4 (22.0-30.0) sec Sodium 141 (137-145) mmol/L Potassium 4.3 (3.5-5.1) mmol/L Chloride 104 (98-107) mmol/L Carbon Dioxide 26 (22-30) mmol/L Anion Gap 11 mmol/L BUN 14 (7-17) mg/dL Creatinine 0.87 (0.52-1.04) mg/dL Est GFR (CKD-EPI)AfAm 72 (>60 ml/min/1.73 sqM) Est GFR (CKD-EPI)NonAf 62 (>60 ml/min/1.73 sqM) Glucose 138 H (74-99) mg/dL Calcium 9.4 (8.4-10.2) mg/dL Total Bilirubin 0.5 (0.2-1.3) mg/dL AST 34 (14-36) U/L ALT 19 (4-34) U/L Alkaline Phosphatase 60 (38-126) U/L Troponin I (0.000-0.034) ng/mL Total Protein 7.0 (6.3-8.2) g/dL Albumin 4.1 (3.5-5.0) g/dL 12/23/22 Range/Units 20:13 WBC (3.8-10.6) k/uL RBC (3.80-5.40) m/uL Hgb (11.4-16.0) gm/dL Hct (34.0-46.0) % MCV (80.0-100.0) fL MCH (25.0-35.0) pg MCHC (31.0-37.0) g/dL RDW (11.5-15.5) % Plt Count (150-450) k/uL MPV Neutrophils % % Lymphocytes % % Monocytes % % Eosinophils % % Basophils % % Neutrophils # (1.3-7.7) k/uL Lymphocytes # (1.0-4.8) k/uL Monocytes # (0-1.0) k/uL Eosinophils # (0-0.7) k/uL Basophils # (0-0.2) k/uL PT (10.0-12.5) sec INR (<1.2) APTT (22.0-30.0) sec Sodium (137-145) mmol/L Potassium (3.5-5.1) mmol/L Chloride (98-107) mmol/L Carbon Dioxide (22-30) mmol/L Anion Gap mmol/L BUN (7-17) mg/dL Creatinine (0.52-1.04) mg/dL Est GFR (CKD-EPI)AfAm (>60 ml/min/1.73 sqM) Est GFR (CKD-EPI)NonAf (>60 ml/min/1.73 sqM) Glucose (74-99) mg/dL Calcium (8.4-10.2) mg/dL Total Bilirubin (0.2-1.3) mg/dL AST (14-36) U/L ALT (4-34) U/L Alkaline Phosphatase (38-126) U/L Troponin I <0.012 (0.000-0.034) ng/mL Total Protein (6.3-8.2) g/dL Albumin (3.5-5.0) g/dL Disposition <Glenn Song - Last Filed: 12/24/22 00:05> Is patient prescribed a controlled substance at d/c from ED?: No Time of Disposition: 13:25 <Aaron Wray - Last Filed: 12/24/22 13:35> Clinical Impression: Encounter for psychological evaluation, Suicidal ideation Disposition: HOME SELF-CARE Condition: Good Additional Instructions: follow safety plan Referrals: Callum Cain MD [Primary Care Provider] - 1-2 days
[2022-12-24 11:51] VITALS: TEMP 98
[2022-12-24 14:12] VITALS: BP 172/79; PULSE 79; RESP 20
== END 2022-12-24 14:25 | disposition home or self-care (01) ==
LOC: EC 19:48
DX: Z00.8 Encounter for other general examination (principal); R45.851 Suicidal ideations; I50.9 Heart failure, unspecified; J44.9 Chronic obstructive pulmonary disease, unspecified; E07.9 Disorder of thyroid, unspecified; M19.90 Unspecified osteoarthritis, unspecified site; F41.9 Anxiety disorder, unspecified; Z86.73 Personal history of transient ischemic attack (TIA), and cerebral infarction without residual deficits; Z87.891 Personal history of nicotine dependence; Z79.890 Hormone replacement therapy; Z79.1 Long term (current) use of non-steroidal anti-inflammatories (NSAID); Z79.01 Long term (current) use of anticoagulants; Z79.82 Long term (current) use of aspirin; Z79.899 Other long term (current) drug therapy; Z88.0 Allergy status to penicillin
CPT/HCPCS: 36415; 80053; 82075; 84484; 85025; 85610; 85730; 93005; 99285

== ENCOUNTER → 2023-07-22 | Outpatient (CLI) | payer MEDICARE, OTHER ==
--- NOTE | 2023-07-22 14:58 | MM ---
Reason for Exam: Follow-up at short interval from prior study. Last mammogram was performed 1 year(s) and 2 month(s) ago. Patient History: Menarche at age 10. First Full-Term at age 17. Postmenopausal. Breast cancer, right, age 54. Previous chest radiation therapy at age 54. Hormonal Contraceptives for 29 years from age 25 until age 54. Lumpectomy on the Right side. 06/17/2022, US discontinued breast core RT on the right side. Radiation Therapy, right. Sister (Chikis) had breast cancer, age 56. Sister (Shanita) had breast cancer under age 50. Sister (Keri) had breast cancer, age 83. Prior Study Comparison: 05/10/2018 Bilateral Screening Mammogram, [facility]. 09/19/2021 Bilateral MG 3D screening mammo w/cad, [facility]. 05/22/2022 Bilateral MG 3D diag mammo w/cad [facility], [facility]. 05/22/2022 Bilateral US breast limited BILAT, [facility]. 07/15/2022 Bilateral MR breast bilat wo/w con, [facility]. 10/29/2022 Left MG 3D diag mammo w/cad LT, [facility]. 10/29/2022 Left US breast LT, [facility]. Tissue Density: There are scattered areas of fibroglandular density. Findings: Analyzed By CAD. Postsurgical and posttreatment change right breast. A few scattered benign oil cyst calcifications. Medial asymmetric density posterior right breast on the CC view was not seen previously. Likely previously not included on the [id number]. This improves on spot compression and is suspected to represent the lumpectomy scar. Precautionary short interval follow up recommended. The previous upper outer quadrant focal asymmetry on the left has resolved. Otherwise, no significant change from prior exams. Overall Assessment: Probably benign, BI-RAD 3 Management: Diagnostic Mammogram of the right breast in 6 months. . Results were given to the patient verbally at the time of exam. Patient should continue monthly self-breast exams. A clinical breast exam by your physician is recommended on an annual basis. This exam should not preclude additional follow-up of suspicious palpable abnormalities. Electronically signed and approved by: Bob Noriega M.D. Radiologist
== END | disposition home or self-care (01) ==
LOC: RADMAMWWP 13:35
PROVIDERS: ATTEND Surgery
DX: R92.323 Mammographic fibroglandular density, bilateral breasts (principal); R92.1 Mammographic calcification found on diagnostic imaging of breast; Z80.3 Family history of malignant neoplasm of breast; Z78.0 Asymptomatic menopausal state; Z85.3 Personal history of malignant neoplasm of breast
CPT/HCPCS: 77066; G0279; 77062

== ENCOUNTER → 2023-08-04 | Outpatient (CLI) | payer MEDICARE, OTHER ==
[2023-08-04 12:45] VITALS: BP 149/69; PULSE 86; RESP 17; TEMP 97.8
--- NOTE | 2023-08-04 12:48 | P.PN ---
Subjective Progress Note Date: 08/04/23 08-04-23 Olena is an 82 year old white female seen in consultation for DR. Callum Cain on 10-29-22 regarding a lump in her right breast. She had noted this for several months. It was not painful. She had a right breast lumpectomy and radiation therapy about 20 years prior. She did not have any chemotherapy. She did take hormone therapy for a period of time. She had a bilateral mammogram on 05-22-22 which was BIRADS 0. A recommend a bilateral breast ultrasound. Ultrasound [place] [id number]. This was felt to be overall probably benign BIRADS 3 focal calcification at the site of a palpable abnormality right breast was identified. Follow-up was advised secondary to a small hypoechoic area in the left breast at 2:00. Additionally as noted the patient had the palpable change in the right breast. She was not complaining of any trauma or infection in her breast. She had developed lymphedema in the last year it is intermittent. The patient had extensive radiographic evaluation of the nodule in her right breast most recently a bilateral MRI performed on which did not reveal any evidence of cancer in either breast. She had surgical resection of this area on 11-03-22 which was benign. She is not complaining of any new lumps masses or nodules of concern in either breast. She had a bilateral mammogram on 07-22-23 which was BIRAD 3 repeat right breast mammogram in 6 months recommended. Caffiene: 1 cup/day nicotine: none, stopped 40 years ago chocolate: daily BCP: 10 years hormones: none Family History: 4 sisters, 1 brother 3 sisters: breast cancer, (two over 50 and one under 50) sister: lymphoma maternal aunt: breast cancer Hormonal History: menarche: 10 , breast fed: yes, age at first : 17 menopause: 50 Surgical History: right breast lumpectomy and node sampling cataract bilateral thyroid 75% removed no cancer gallbaldder Cardiac and subclavian stents excision of lesions right chest wall Medical History: anxiety going for therapy sees a psychiatrist HTN fibromyalgia COPD Social History: nicotine: none alcohol: occasional drugs: none - Constitutional Constitutional: Denies chills, Denies fever - EENT Eyes: denies blurred vision, denies pain Ears: bilateral: tinnitus, deny: decreased hearing Ears, nose, mouth and throat: Denies headache, Denies sore throat - Breasts Breasts: bilateral: as per HPI - Cardiovascular Cardiovascular: Reports as per HPI, Reports chest pain, Denies shortness of breath - Respiratory Respiratory: Reports cough - Gastrointestinal Gastrointestinal: Denies abdominal pain, Denies diarrhea, Denies nausea, Denies vomiting - Genitourinary (Female) Genitourinary: Denies dysuria, Denies hematuria - Menstruation Menstruation: Reports postmenopausal - Musculoskeletal Comment: back pain, fibromyalgia - Integumentary Comment: right arm lymphedema - Neurological Comment: syncope - Psychiatric Psychiatric: Reports anxiety - Endocrine Endocrine: Denies fatigue, Denies weight change - Hematologic/Lymphatic Comment: aspirin and plavix - Allergic/Immunologic Allergic/Immunologic: Reports as per HPI Past Medical History Past Medical History: Cancer, Heart Failure, COPD, CVA/TIA, Fibromyalgia, Osteoarthritis (OA), Thyroid Disorder Additional Past Medical History / Comment(s): 2011 carbon monoxide posioning(caused a stroke), breast cancer, "low blood pressure, they have trouble getting a blood pressure reading on my left arm", bronchitits, osteoporosis. History of Any Multi-Drug Resistant Organisms: None Reported Past Surgical History: Breast Surgery, Cholecystectomy, Heart Catheterization, Heart Catheterization With Stent Additional Past Surgical History / Comment(s): Thyroidectomy, right breast lumpectomy. 2 stent to LAD, cataract removal sx with permanent contact lenses. Past Anesthesia/Blood Transfusion Reactions: No Reported Reaction Date of Last Stent Placement:: 09/20/18 Past Psychological History: Anxiety Smoking Status: Former smoker Past Alcohol Use History: Rare Additional Past Alcohol Use History / Comment(s): Quit smoking in her 40's, started smoking age 14, 1 PPD. Past Drug Use History: None Reported - Past Family History Sister(s) Family Medical History: Cancer Medications and Allergies Home Medications Medication Instructions Recorded Confirmed Type Alendronate Sodium 70 mg PO WE 06/24/18 09/22/21 History Clopidogrel [Plavix] 75 mg PO DAILY 06/24/18 09/22/21 History DULoxetine HCL [Cymbalta] 20 mg PO BID 06/24/18 09/22/21 History Levothyroxine Sodium [Synthroid] 50 mcg PO DAILY 06/24/18 09/22/21 History rOPINIRole HCL [Requip] 2 mg PO HS 06/24/18 09/22/21 History traZODone HCL 50 mg PO HS 06/24/18 09/22/21 History Losartan [Cozaar] 50 mg PO HS 09/05/18 09/22/21 History carvediloL [Coreg] 6.25 mg PO AC-BID #180 tab 09/21/18 09/22/21 Rx Furosemide [Lasix] 20 mg PO DAILY 06/03/20 09/22/21 History amLODIPine [Norvasc] 5 mg PO DAILY 06/03/20 09/22/21 History clonazePAM [KlonoPIN] 1 mg PO BID PRN 06/03/20 09/22/21 History Acetaminophen-Codeine 300-30mg 2 tab PO TID PRN 09/10/21 09/22/21 History [Tylenol w/codeine #3] Atorvastatin [Lipitor] 40 mg PO HS 09/10/21 09/22/21 History Multivitamins, Thera [Multivitamin 1 tab PO DAILY 09/10/21 09/22/21 History (formulary)] Omeprazole [PriLOSEC] 20 mg PO DAILY 09/10/21 09/22/21 History Vitamin E 400 unit PO DAILY 09/10/21 09/22/21 History Calamine/Zinc Oxide Lotion 1 applic TOPICAL BID PRN each 09/15/21 09/22/21 Rx [Calamine Lotion] Allergies Allergy/AdvReac Type Severity Reaction Status Date / Time amoxicillin AdvReac Diarrhea Verified 09/22/21 17:24 Objective - Constitutional General appearance: Present: cooperative - EENT Eyes: Present: EOMI ENT: Present: hearing grossly normal - Neck Neck: Present: normal ROM - Respiratory Respiratory: bilateral: CTA - Cardiovascular Heart sounds: normal: S1, S2 - Gastrointestinal General gastrointestinal: Present: soft - Integumentary Integumentary: Present: normal turgor - Musculoskeletal Musculoskeletal: Present: gait normal - Psychiatric Psychiatric: Present: A&O x's 3, appropriate affect, intact judgment & insight - Additional findings Additional findings: Breast Exam: BRA: 36C Inspection: Right breast smaller than left breast, scar UIQ Palpation: Right breast: Multi-positional exam post surgical and radiation changes in the medial upper breast there is a well healed scar, no nodule of concern Right axilla: No adenopathy of concern left breast: Multi-positional exam no dominant masses or nodules of concern Left axilla: No adenopathy of concern Assessment and Plan Assessment: Impression: Patient status post right breast lumpectomy axillary node sampling approximately 20 years ago Patient had noted some increased nodularity in the right chest wall area; ? if this was fixed does not seem to be so on MRI, excision of the nodularity on 11-03-22 benign Bilateral mammogram on 07-22-23 BIRAD 3, repeat right breaset mammogram in 6 months with an appointment Plan: right breast mammogram in 6 months with appointment follow up sooner any concerns CC: Dr. Callum Cain
== END ==
LOC: WWCWWP 11:41
PROVIDERS: ATTEND Surgery
DX: R92.1 Mammographic calcification found on diagnostic imaging of breast (principal); N63.10 Unspecified lump in the right breast, unspecified quadrant; Z48.817 Encounter for surgical aftercare following surgery on the skin and subcutaneous tissue; Z98.890 Other specified postprocedural states; Z85.3 Personal history of malignant neoplasm of breast; Z80.3 Family history of malignant neoplasm of breast; Z87.891 Personal history of nicotine dependence; Z88.0 Allergy status to penicillin

== ENCOUNTER → 2023-09-22 | Outpatient (CLI) | payer MEDICARE, OTHER ==
--- NOTE | 2023-09-23 08:50 | BD ---
EXAMINATION TYPE: Axial Bone Density DATE OF EXAM: 09/22/2023 CLINICAL HISTORY: 82 years old Female. ICD-10 CODE: Z78.0 ASYMPTOMATIC MENOPAUSAL STATE Height: 57.2 in Weight: 115 lbs FRAX RISK QUESTIONS: History of Fracture in Adulthood: rt ankle fx age 60 Secondary Osteoporosis: 2. Hyperthyroidism: yes MEDICATIONS: Thyroid Medications: yes Which medication: Levothyroxine How Lon+ years EXAM MEASUREMENTS: Bone mineral densitometry was performed using the [employer] System. Bone mineral density as measured about the Lumbar spine is: ----- L1-L4(G/cm2): 1.058 T Score Values are as follows: ----- L1: -1.0 ----- L2: -1.1 ----- L3: -0.8 ----- L4: -1.3 ----- L1-L4: -1.0 Z Score Values are as follows: ----- L1: 1.3 ----- L2: 1.2 ----- L3: 1.5 ----- L4: 1.0 ----- L1-L4: 1.3 Bone mineral density has: Increased 10.1% since study of: 09/19/2021 Bone mineral density about the R hip (g/cm2): 0.722 Bone mineral density about the L hip (g/cm2): 0.664 T Score values are as follows: -----R Neck: -2.4 -----L Neck: -2.7 -----R Total: -2.3 -----L Total: -2.7 Z Score values are as follows: -----R Neck: 0.2 -----L Neck: -0.2 -----R Total: 0.2 -----L Total: -0.3 Bone mineral density has: Decreased -4.9% since study of: 09/19/2021 FRAX%s: The graph provided illustrates a 30.0% chance for a major osteoporotic fx and a 11.1% chance for the hips probability for fx in 10 years time. IMPRESSION: Osteoporosis (T Score less than -2.5). There is increased fracture risk and therapy is usually indicated based on age. Re-Screen 1-2 years. NOTE: T-SCORE=SD OF THE YOUNG ADULT MEAN.
== END | disposition home or self-care (01) ==
LOC: RADBDWWP 15:18
PROVIDERS: ATTEND Family Medicine
DX: M81.0 Age-related osteoporosis without current pathological fracture (principal); M85.89 Other specified disorders of bone density and structure, multiple sites; Z78.0 Asymptomatic menopausal state
CPT/HCPCS: 77080

== ENCOUNTER 2023-11-08 15:43 | Emergency (ER) | payer MEDICARE, OTHER ==
[2023-11-08 15:52] VITALS: TEMP 99.4
--- NOTE | 2023-11-08 16:16 | ED ---
General Adult HPI - General Chief complaint: Upper Respiratory Infection Stated complaint: AISLINN Source: patient, EMS Mode of arrival: EMS Limitations: no limitations - History of Present Illness Initial comments: this patient is an 82-year-old woman who complains of continuos coughing and some shortness of breath. She had gone to urgent care days ago and was diagnosed with bronchitis. The patient was given prescription for prednisone and benzonatate. She has finished the prednisone but is not having any relief from the cough. She states the cough is worse. She states that generally there is no sputum. She has not noted fever or chills. She is not having chest pain. She does get short of breath when she has long coughing spell. Patient has not noted swelling or pain in the legs. No change in urination or bowel movements -: days(s) Severity scale (1-10): 0 Consistency: constant Improves with: none Worsens with: none Associated Symptoms: cough, shortness of breath Treatments Prior to Arrival: other (as above) - Related Data Home Medications Medication Instructions Recorded Confirmed Alendronate Sodium 70 mg PO WE 06/24/18 11/08/23 Clopidogrel [Plavix] 75 mg PO DAILY 06/24/18 11/08/23 Levothyroxine Sodium [Synthroid] 50 mcg PO DAILY 06/24/18 11/08/23 rOPINIRole HCL [Requip] 2 mg PO HS 06/24/18 11/08/23 Losartan [Cozaar] 50 mg PO HS 09/05/18 11/08/23 clonazePAM [KlonoPIN] 1 mg PO BID 06/03/20 11/08/23 Omeprazole [PriLOSEC] 20 mg PO DAILY 09/10/21 11/08/23 Vitamin E 400 unit PO DAILY 09/10/21 11/08/23 Aspirin EC [Ecotrin Low Dose] 81 mg PO DAILY 05/29/22 11/08/23 Rosuvastatin [Crestor] 20 mg PO HS 12/24/22 11/08/23 Azithromycin [Zithromax Z Pack] See Taper PO DIRECTED 11/08/23 11/08/23 Benzonatate [Tessalon Perle] 200 mg PO TID 11/08/23 11/08/23 Dorzolamide 2% [Trusopt 2%] 1 drop BOTH EYES HS 11/08/23 11/08/23 Multivitamins, Thera [Multivitamin 1 tab PO DAILY 11/08/23 11/08/23 (formulary)] Sertraline [Zoloft] 50 mg PO DAILY 11/08/23 11/08/23 amLODIPine [Norvasc] 10 mg PO DAILY 11/08/23 11/08/23 carvediloL [Coreg] 6.25 mg PO BID-W/MEALS 11/08/23 11/08/23 predniSONE [Deltasone] 20 mg PO DAILY 11/08/23 11/08/23 Previous Rx's Medication Instructions Recorded Albuterol Inhaler [Ventolin Hfa 2 puff INHALATION Q4HR PRN #8 gm 11/08/23 Inhaler] guaiFENesin-Coden 100-10MG/5ML 5 - 10 ml PO Q6H PRN 3 Days #120 ml 11/08/23 [Robitussin AC] predniSONE 60 mg PO DAILY #30 tab 11/08/23 Allergies Allergy/AdvReac Type Severity Reaction Status Date / Time amoxicillin AdvReac Diarrhea Verified 11/08/23 19:34 Review of Systems ROS Statement: Those systems with pertinent positive or pertinent negative responses have been documented in the HPI. ROS Other: All systems not noted in ROS Statement are negative. Constitutional: Denies: chills, weakness Respiratory: Reports: cough, dyspnea, wheezes Cardiovascular: Denies: chest pain, palpitations, orthopnea, edema, syncope Gastrointestinal: Denies: abdominal pain, vomiting, diarrhea, melena, hematoche syeda Genitourinary: Denies: dysuria, hematuria Musculoskeletal: Denies: back pain Skin: Denies: rash Neurological: Denies: headache, weakness Past Medical History Past Medical History: Cancer, Heart Failure, COPD, CVA/TIA, Fibromyalgia, Osteoarthritis (OA), Thyroid Disorder Additional Past Medical History / Comment(s): 2011 carbon monoxide posioning(caused a stroke), breast cancer, "low blood pressure, they have trouble getting a blood pressure reading on my left arm", bronchitits, osteoporosis. Vertigo History of Any Multi-Drug Resistant Organisms: None Reported Past Surgical History: Breast Surgery, Cholecystectomy, Heart Catheterization, Heart Catheterization With Stent Additional Past Surgical History / Comment(s): Thyroidectomy, right breast lump ectomy. 3 stent to LAD, bilat cataract removal sx with permanent contact lenses. Past Anesthesia/Blood Transfusion Reactions: No Reported Reaction Date of Last Stent Placement:: 09/20/20 Past Psychological History: Anxiety Smoking Status: Former smoker Past Alcohol Use History: Rare Past Drug Use History: None Reported - Past Family History Sister(s) Family Medical History: Cancer General Exam Limitations: no limitations General appearance: alert, in no apparent distress Head exam: Present: atraumatic, normocephalic Eye exam: Present: normal appearance. Absent: scleral icterus, conjunctival injection Neck exam: Present: normal inspection Respiratory exam: Present: wheezes, other (frequent cough). Absent: respiratory distress, rhonchi, stridor, accessory muscle use Cardiovascular Exam: Present: regular rate, normal rhythm, normal heart sounds. Absent: systolic murmur, diastolic murmur, rubs, gallop GI/Abdominal exam: Present: soft. Absent: distended, tenderness, guarding, rebound, rigid, mass Extremities exam: Present: normal inspection, normal capillary refill. Absent: pedal edema, calf tenderness Back exam: Present: normal inspection. Absent: CVA tenderness (R), CVA tenderness (L) Neurological exam: Present: alert Skin exam: Present: warm, dry, intact, normal color. Absent: rash Course Vital Signs 11/08/23 11/08/23 11/08/23 15:45 15:52 16:23 Temperature 99.4 F 99.4 F Pulse Rate 82 82 82 Respiratory 20 20 Rate Blood Pressure 148/71 148/71 O2 Sat by Pulse 95 95 Oximetry 11/08/23 11/08/23 11/08/23 16:30 18:03 18:22 Temperature Pulse Rate 88 73 76 Respiratory 16 Rate Blood Pressure 151/66 O2 Sat by Pulse 97 Oximetry 11/08/23 11/08/23 11/08/23 18:29 19:40 21:06 Temperature Pulse Rate 80 75 83 Respiratory 18 18 Rate Blood Pressure 148/76 156/74 O2 Sat by Pulse 94 L 93 L Oximetry EKG Findings - EKG Results: EKG: interpreted by NIKIA, sinus rhythm (Rate 68 bpm), normal axis, normal QRS - Blocks, [place], Hypertrophy, ST Abn: Repolarization changes or abnormalities: nonspecific abnormality, ST segment, and/or T wave Medical Decision Making - Medical Decision Making The patient had chest x-ray that I interpreted as negative for acute infiltrate, pneumothorax, congestive heart failure Was pt. sent in by a medical professional or institution ([employer], [employer]INE [employer], urgent care, hospital, or intermediate...) When possible be specific @ -[No] Did you speak to anyone other than the patient for history (EMS, parent, family, police, friend...)? What history was obtained from this source @ -[No] Did you review nursing and triage notes (agree or disagree)? Why? @ -[I reviewed and agree with nursing and triage notes] Were old charts reviewed (outside hosp., previous admission, EMS record, old EKG, old radiological studies, urgent care reports/EKG's, intermediate records)? Report findings @ -[No old charts were reviewed] Differential Diagnosis (chest pain, altered mental status, abdominal pain women, abdominal pain men, vaginal bleeding, weakness, fever, dyspnea, syncope, headache, dizziness, GI bleed, back pain, seizure, CVA, palpatations, mental health, musculoskeletal)? @ -[Differential Dyspnea: Coronary syndrome, arrhythmia, tamponade, asthma, COPD, pulmonary embolism, pneumonia, pneumothorax, pulmonary effusion, anaphylaxis, diabetic ketoacidosis, flailed chest, pulmonary contusion, diaphragmatic rupture, anemia, neuromuscular, this is not meant to be an all-inclusive list. EKG interpreted by me (3pts min.). @ -[I interpreted as above] X-rays interpreted by me (1pt min.). @ -[I interpreted as above CT interpreted by me (1pt min.). @ -[None done] U/S interpreted by me (1pt. min.). @ -[None done] What testing was considered but not performed or refused? (CT, X-rays, U/S, labs)? Why? @ -[None] What meds were considered but not given or refused? Why? @ -[None] Did you discuss the management of the patient with other professionals (professionals i.e. [employer], [employer] MACHINE TENDER, lab, RT, psych nurse, medical social consultant, gauge maker apprentice, teacher, air antisubmarine officer, caseworker)? Give summary @ -[No] Was smoking cessation discussed for >3mins.? @ -[No] Was critical care preformed (if so, how long)? @ -[No] Were there social determinants of health that impacted care today? How? (Homelessness, low income, unemployed, alcoholism, drug addiction, transportation, low edu. Level, literacy, decrease access to med. care, correction, rehab)? @ -[No] Was there de-escalation of care discussed even if they declined (Discuss DNR or withdrawal of care, Hospice)? DNR status @ -[No] What co-morbidities impacted this encounter? (DM, HTN, Smoking, COPD, CAD, Cancer, CVA, ARF, Chemo, Hep., AIDS, mental health diagnosis, sleep apnea, morbid obesity)? @ -[None] Was patient admitted / discharged? Hospital course, mention meds given and route, prescriptions, significant lab abnormalities, going to OR and other pertinent info. @ -[Patient is an 82-year-old woman who presents with cough and wheezing. The physical exam consistent with COPD exacerbation versus acute bronchitis. The patient did have improvement with steroids and inhaled medications. Discussed further care with the patient and at this point her sats are good and she will attempt going home if there is any further respiratory difficulty or her symptoms are not improving she will return. Undiagnosed new problem with uncertain prognosis? @ -[No] Drug Therapy requiring intensive monitoring for toxicity (Heparin, Nitro, Insulin, Cardizem)? @ -[No] Were any procedures done? @ -[No] Diagnosis/symptom? @ -[Acute bronchitis versus COPD Acute, or Chronic, or Acute on Chronic? @ -[Acute Uncomplicated (without systemic symptoms) or Complicated (systemic symptoms)? @ -[Uncomplicated Side effects of treatment? @ -[No] Exacerbation, Progression, or Severe Exacerbation? @ -[No] Poses a threat to life or bodily function? How? (Chest pain, [place], CO, pneumonia, PE, COPD, DKA, ARF, appy, cholecystitis, CVA, Diverticulitis, Homicidal, Suicidal, threat to staff... and all critical care pts) @ -[No] - Lab Data Result diagrams: 11/08/23 17:08 11/08/23 17:08 Lab Results 11/08/23 11/08/23 11/08/23 Range/Units 17:08 17:08 17:08 WBC 7.6 (3.8-10.6) k/uL RBC 4.68 (3.80-5.40) m/uL Hgb 13.9 (11.4-16.0) gm/dL Hct 41.9 (34.0-46.0) % MCV 89.7 (80.0-100.0) fL MCH 29.6 (25.0-35.0) pg MCHC 33.0 (31.0-37.0) g/dL RDW 13.0 (11.5-15.5) % Plt Count 262 (150-450) k/uL MPV 8.2 Neutrophils % 53 % Lymphocytes % 36 % Monocytes % 6 % Eosinophils % 2 % Basophils % 1 % Neutrophils # 4.0 (1.3-7.7) k/uL Lymphocytes # 2.8 (1.0-4.8) k/uL Monocytes # 0.4 (0-1.0) k/uL Eosinophils # 0.2 (0-0.7) k/uL Basophils # 0.0 (0-0.2) k/uL PT 10.5 (10.0-12.5) sec INR 0.9 (<1.2) APTT 23.4 (22.0-30.0) sec D-Dimer 0.54 (<0.60) mg/L FEU Sodium 138 (137-145) mmol/L Potassium 5.0 (3.5-5.1) mmol/L Chloride 107 (98-107) mmol/L Carbon Dioxide 25 (22-30) mmol/L Anion Gap 6 mmol/L BUN 18 H (7-17) mg/dL Creatinine 1.21 H (0.52-1.04) mg/dL Est GFR (CKD-EPI)AfAm 48 (>60 ml/min/1.73 sqM) Est GFR (CKD-EPI)NonAf 42 (>60 ml/min/1.73 sqM) Glucose 93 (74-99) mg/dL Plasma Lactic Acid Haris (0.7-2.0) mmol/L Calcium 9.8 (8.4-10.2) mg/dL Magnesium 1.8 (1.6-2.3) mg/dL Total Bilirubin 1.2 (0.2-1.3) mg/dL AST 46 H (14-36) U/L ALT 16 (4-34) U/L Alkaline Phosphatase 35 L (38-126) U/L Troponin I (0.000-0.034) ng/mL NT-Pro-B Natriuret Pep 617 pg/mL Total Protein 7.1 (6.3-8.2) g/dL Albumin 4.2 (3.5-5.0) g/dL Influenza Type A (PCR) (Not Detectd) Influenza Type B (PCR) (Not Detectd) RSV (PCR) (Not Detectd) SARS-CoV-2 (PCR) (Not Detectd) 11/08/23 11/08/23 11/08/23 Range/Units 17:08 17:08 17:08 WBC (3.8-10.6) k/uL RBC (3.80-5.40) m/uL Hgb (11.4-16.0) gm/dL Hct (34.0-46.0) % MCV (80.0-100.0) fL MCH (25.0-35.0) pg MCHC (31.0-37.0) g/dL RDW (11.5-15.5) % Plt Count (150-450) k/uL MPV Neutrophils % % Lymphocytes % % Monocytes % % Eosinophils % % Basophils % % Neutrophils # (1.3-7.7) k/uL Lymphocytes # (1.0-4.8) k/uL Monocytes # (0-1.0) k/uL Eosinophils # (0-0.7) k/uL Basophils # (0-0.2) k/uL PT (10.0-12.5) sec INR (<1.2) APTT (22.0-30.0) sec D-Dimer (<0.60) mg/L FEU Sodium (137-145) mmol/L Potassium (3.5-5.1) mmol/L Chloride (98-107) mmol/L Carbon Dioxide (22-30) mmol/L Anion Gap mmol/L BUN (7-17) mg/dL Creatinine (0.52-1.04) mg/dL Est GFR (CKD-EPI)AfAm (>60 ml/min/1.73 sqM) Est GFR (CKD-EPI)NonAf (>60 ml/min/1.73 sqM) Glucose (74-99) mg/dL Plasma Lactic Acid Haris 1.5 (0.7-2.0) mmol/L Calcium (8.4-10.2) mg/dL Magnesium (1.6-2.3) mg/dL Total Bilirubin (0.2-1.3) mg/dL AST (14-36) U/L ALT (4-34) U/L Alkaline Phosphatase (38-126) U/L Troponin I <0.012 (0.000-0.034) ng/mL NT-Pro-B Natriuret Pep pg/mL Total Protein (6.3-8.2) g/dL Albumin (3.5-5.0) g/dL Influenza Type A (PCR) Not Detected (Not Detectd) Influenza Type B (PCR) Not Detected (Not Detectd) RSV (PCR) Not Detected (Not Detectd) SARS-CoV-2 (PCR) Not Detected (Not Detectd) Disposition Clinical Impression: Bronchitis Disposition: HOME SELF-CARE Condition: Good Instructions (If sedation given, give patient instructions): Acute Bronchitis (ED) Prescriptions: predniSONE 60 mg PO DAILY #30 tab guaiFENesin-Coden 100-10MG/5ML [Robitussin AC] 5 - 10 ml PO Q6H PRN 3 Days #120 ml PRN Reason: Cough Albuterol Inhaler [Ventolin Hfa Inhaler] 2 puff INHALATION Q4HR PRN #8 gm PRN Reason: Wheezing Is patient prescribed a controlled substance at d/c from ED?: Yes When asked, does pt state using other controlled substances?: No If prescribed controlled substance>3 days was MAPS reviewed?: Prescribed <3 Days If opioid is for acute pain is fill amount 7 days or less?: Yes If Rx opioid, was Start Talking consent form obtained?: Yes Referrals: Callum Cain MD [Primary Care Provider] - 1-2 days
[2023-11-08] MEDS: predniSONE 20 MG TAB PO STA (16:18)
[2023-11-08] MEDS: IPRATROPIUM-ALBUTEROL 3 ML NEB INHALATION STA (16:22)
[2023-11-08] MEDS: ALBUTEROL NEBULIZED 2.5 MG/3 ML INHALATION STA ×2 (16:23→18:20)
[2023-11-08 17:26] LABS: Basophils % (A) 1 %; Eosinophils # (A) 0.2 k/uL (0-0.7); Eosinophils % (A) 2 %; HCT 41.9 % (34.0-46.0); HGB 13.9 gm/dL (11.4-16.0); Lymphocytes # (A) 2.8 k/uL (1.0-4.8); Lymphocytes % (A) 36 %; MCH 29.6 pg (25.0-35.0); MCV 89.7 fL (80.0-100.0); Mean Platelet Volume 8.2; Monocytes # (A) 0.4 k/uL (0-1.0); Monocytes % (A) 6 %; Neutrophils % (A) 53 %; Platelet Count 262 k/uL (150-450); RBC 4.68 m/uL (3.80-5.40); WBC 7.6 k/uL (3.8-10.6)
[2023-11-08 17:41] LABS: ALT 16 U/L (4-34); African American GFR (CKD) 48 (>60 ml/min/1.73 sqM); Anion Gap 6 mmol/L; Blood Urea Nitrogen 18 mg/dL (7-17); Calcium 9.8 mg/dL (8.4-10.2); Carbon Dioxide 25 mmol/L (22-30); Chloride 107 mmol/L (98-107); Glucose 93 mg/dL (74-99); Non-African American GFR(CKD) 42 (>60 ml/min/1.73 sqM); Sodium 138 mmol/L (137-145)
[2023-11-08 17:44] LABS: AST 46 U/L (14-36); Albumin 4.2 g/dL (3.5-5.0); Alkaline Phosphatase 35 U/L (38-126); Magnesium 1.8 mg/dL (1.6-2.3); Total Bilirubin 1.2 mg/dL (0.2-1.3); Total Protein 7.1 g/dL (6.3-8.2)
[2023-11-08 17:46] LABS: INR 0.9 (<1.2); Partial Thromboplastin Time 23.4 sec (22.0-30.0); Prothrombin Time 10.5 sec (10.0-12.5)
[2023-11-08 17:49] LABS: NT-Pro-B-Type Natriuretic Pept 617 pg/mL
--- NOTE | 2023-11-08 17:55 | XR ---
EXAMINATION TYPE: XR chest 2V DATE OF EXAM: 11/08/2023 COMPARISON: None INDICATION: Difficulty breathing cough wheeze TECHNIQUE: Frontal and lateral views of the chest are obtained. FINDINGS: The heart size is normal. The pulmonary vasculature is normal. The lungs are clear. IMPRESSION: 1. No acute pulmonary process. [facility], , 11/08/2023 5:53 PM
[2023-11-08] MEDS: HYDROcodone/APAP 5-325MG 1 EACH TAB PO STA (19:37)
[2023-11-08 19:41] VITALS: RESP 18
[2023-11-08] MEDS: SODIUM CHLORIDE 0.9% 500 ML 500 ML IV STA (20:20)
[2023-11-08 21:09] VITALS: BP 156/74; PULSE 83
== END 2023-11-08 21:06 | disposition home or self-care (01) ==
LOC: EC 15:43
DX: R06.00 Dyspnea, unspecified
CPT/HCPCS: 36415; 71046; 80053; 83605; 83735; 83880; 84484; 85025; 85379; 85610; 85730; 87636; 93005; 94640; 99285

== ENCOUNTER → 2024-02-29 | Outpatient (CLI) | payer MEDICARE, OTHER ==
--- NOTE | 2024-02-29 14:42 | MM ---
Reason for Exam: Follow-up at short interval from prior study. Last screening mammogram was performed 8 month(s) ago. Patient History: Menarche at age 10. First Full-Term at age 17. Postmenopausal. Breast cancer, right, age 54. Previous chest radiation therapy at age 54. Hormonal Contraceptives for 29 years from age 25 until age 54. Lumpectomy on the Right side. 06/17/2022, US discontinued breast core RT on the right side. Radiation Therapy, right. Sister (Chikis) had breast cancer, age 56. Sister (Shanita) had breast cancer under age 50. Sister (Keri) had breast cancer, age 83. Prior Study Comparison: 05/22/2022 Bilateral MG 3D diag mammo w/cad ARTHUR, [facility]. 10/29/2022 Left MG 3D diag mammo w/cad LT, [facility]. 07/22/2023 Bilateral MG 3D diag mammo w/cad ARTHUR, [facility]. Tissue Density: Right: The breasts are heterogeneously dense, which may obscure small masses. Findings: Analyzed By CAD. Redemonstration of postsurgical change right breast with larger calcifications in this region previous area of palpable abnormality on 05/22/2022 is not significant changed on today's exam. No new suspicious masses, calcifications or distortions. Overall Assessment: Benign, BI-RAD 2 Management: Screening Mammogram of both breasts in 1 year. Results were given to the patient verbally at the time of exam. Patient should continue monthly self-breast exams. A clinical breast exam by your physician is recommended on an annual basis. This exam should not preclude additional follow-up of suspicious palpable abnormalities. Note on Hyacinth scores and lifetime risk: 1. A Hyacinth score greater than 3% is considered moderate risk. If this is the case, consider specialist referral to assess eligibility for a risk reducing agent. 2. If overall lifetime risk for the development of breast cancer is 20% or higher, the patient may qualify for future screening with alternating mammogram and breast MRI. [facility], , 02/29/2024 2:39 PM. Electronically signed and approved by: Oscar Montoya DO
== END | disposition home or self-care (01) ==
LOC: RADMAMWWP 13:47
PROVIDERS: ATTEND Surgery
DX: R92.8 Other abnormal and inconclusive findings on diagnostic imaging of breast (principal); Z78.0 Asymptomatic menopausal state; Z85.3 Personal history of malignant neoplasm of breast; Z80.3 Family history of malignant neoplasm of breast; R92.331 Mammographic heterogeneous density, right breast; Z98.890 Other specified postprocedural states
CPT/HCPCS: 77065; G0279; 77061

== ENCOUNTER → 2024-05-23 | Outpatient (CLI) | payer MEDICARE, OTHER ==
--- NOTE | 2024-05-23 14:44 | XR ---
EXAMINATION TYPE: XR lumbosacral spine min 4V DATE OF EXAM: 05/23/2024 CLINICAL INDICATION: Female, 83 years old with history of M54.9 DORSALGIA, UNSPECIFIED, pain TECHNIQUE: Frontal, lateral, and oblique images of the lumbar spine are obtained. COMPARISON: Lumbar spine x-rays 2019 FINDINGS: There are 5 lumbar type vertebral bodies redemonstrated. More prominent dextroconvex scoli osis is now seen. Vertebral bodies and disc space heights remain within normal limits. More prominent mild to moderate multilevel anterior and lateral spurring. Significant overlying arterial vascular c alcification redemonstrated. Cholecystectomy clips are again seen. IMPRESSION: As above. [facility], , 05/23/2024 2:42 PM
== END | disposition home or self-care (01) ==
LOC: RADXRMAIN 14:19
PROVIDERS: ATTEND Family Medicine
DX: M54.50 Low back pain, unspecified (principal); M41.86 Other forms of scoliosis, lumbar region; Z90.49 Acquired absence of other specified parts of digestive tract
CPT/HCPCS: 72110

== ENCOUNTER 2024-07-02 16:28 | Emergency (ER) | payer MEDICARE, OTHER ==
[2024-07-02 16:32] VITALS: RESP 18
--- NOTE | 2024-07-02 16:37 | ED ---
Dizziness HPI - General Chief Complaint: Dizziness Stated Complaint: dizzy Time Seen by Provider: 07/02/24 16:34 Source: patient, RN notes reviewed, old records reviewed Mode of arrival: wheelchair Limitations: no limitations - History of Present Illness Initial Comments: This is an 83 female presenting today for evaluation of some symptoms of dizziness lightheadedness occasional vertiginous symptoms. Patient took her blood pressure today was severely low and became concerned that something was wrong with her blood pressure she does take it every day. Occasional headaches. Occasional cough no syncopal events. Patient has no travel history or sick contacts no recent change in medications. No current chest pain or shortness of breath no history of heart disease. Patient mainly concerned about lightheadedness and dizziness especially when going from position of sitting to standing MD Complaint: dizziness, lightheadedness -: hour(s) Timing: gradual onset, intermittent Description: difficulty walking History of Same: Yes History of Trauma: No Severity: mild Improves With: remaining still Worsens With: movement Associated Symptoms: denies other symptoms - Related Data Home Medications Medication Instructions Recorded Confirmed Alendronate Sodium 70 mg PO WE 06/24/18 11/08/23 Clopidogrel [Plavix] 75 mg PO DAILY 06/24/18 11/08/23 Levothyroxine Sodium [Synthroid] 50 mcg PO DAILY 06/24/18 11/08/23 rOPINIRole HCL [Requip] 2 mg PO HS 06/24/18 11/08/23 Losartan [Cozaar] 50 mg PO HS 09/05/18 11/08/23 clonazePAM [KlonoPIN] 1 mg PO BID 06/03/20 11/08/23 Omeprazole [PriLOSEC] 20 mg PO DAILY 09/10/21 11/08/23 Vitamin E 400 unit PO DAILY 09/10/21 11/08/23 Aspirin EC [Ecotrin Low Dose] 81 mg PO DAILY 05/29/22 11/08/23 Rosuvastatin [Crestor] 20 mg PO HS 12/24/22 11/08/23 Azithromycin [Zithromax Z Pack] See Taper PO DIRECTED 11/08/23 11/08/23 Benzonatate [Tessalon Perle] 200 mg PO TID 11/08/23 11/08/23 Dorzolamide 2% [Trusopt 2%] 1 drop BOTH EYES HS 11/08/23 11/08/23 Multivitamins, Thera [Multivitamin 1 tab PO DAILY 11/08/23 11/08/23 (formulary)] Sertraline [Zoloft] 50 mg PO DAILY 11/08/23 11/08/23 amLODIPine [Norvasc] 10 mg PO DAILY 11/08/23 11/08/23 carvediloL [Coreg] 6.25 mg PO BID-W/MEALS 11/08/23 11/08/23 predniSONE [Deltasone] 20 mg PO DAILY 11/08/23 11/08/23 Previous Rx's Medication Instructions Recorded Albuterol Inhaler [Ventolin Hfa 2 puff INHALATION Q4HR PRN #8 gm 11/08/23 Inhaler] guaiFENesin-Coden 100-10MG/5ML 5 - 10 ml PO Q6H PRN 3 Days #120 ml 11/08/23 [Robitussin AC] predniSONE 60 mg PO DAILY #30 tab 11/08/23 Allergies Allergy/AdvReac Type Severity Reaction Status Date / Time amoxicillin AdvReac Diarrhea Verified 07/02/24 16:32 Review of Systems ROS Statement: Those systems with pertinent positive or pertinent negative responses have been documented in the HPI. ROS Other: All systems not noted in ROS Statement are negative. Past Medical History Past Medical History: Cancer, Heart Failure, COPD, CVA/TIA, Fibromyalgia, Osteoarthritis (OA), Thyroid Disorder Additional Past Medical History / Comment(s): 2010 carbon monoxide posioning(caused a stroke), breast cancer, "low blood pressure, they have trouble getting a blood pressure reading on my left arm", bronchitits, osteoporosis. Vertigo History of Any Multi-Drug Resistant Organisms: None Reported Past Surgical History: Breast Surgery, Cholecystectomy, Heart Catheterization, Heart Catheterization With Stent Additional Past Surgical History / Comment(s): Thyroidectomy, right breast lumpectomy. 3 stent to LAD, bilat cataract removal sx with permanent contact lenses. Past Anesthesia/Blood Transfusion Reactions: No Reported Reaction Date of Last Stent Placement:: 09/20/20 Past Psychological History: Anxiety Smoking Status: Former smoker Past Alcohol Use History: Rare Past Drug Use History: None Reported - Past Family History Sister(s) Family Medical History: Cancer General Exam Limitations: no limitations General appearance: alert, in no apparent distress Head exam: Present: atraumatic, normocephalic, normal inspection Eye exam: Present: normal appearance, PERRL, EOMI. Absent: scleral icterus, conjunctival injection, periorbital swelling ENT exam: Present: normal exam, mucous membranes moist Neck exam: Present: normal inspection. Absent: tenderness, meningismus, lymphadenopathy Respiratory exam: Present: normal lung sounds bilaterally. Absent: respiratory distress, wheezes, rales, rhonchi, stridor Cardiovascular Exam: Present: regular rate, normal rhythm, normal heart sounds. Absent: systolic murmur, diastolic murmur, rubs, gallop, clicks GI/Abdominal exam: Present: soft, normal bowel sounds. Absent: distended, tenderness, guarding, rebound, rigid Extremities exam: Present: normal inspection, full ROM, normal capillary refill. Absent: tenderness, pedal edema, joint swelling, calf tenderness Back exam: Present: normal inspection Neurological exam: Present: alert, oriented X3, CN II-XII intact Psychiatric exam: Present: normal affect, normal mood Skin exam: Present: warm, dry, intact, normal color. Absent: rash Course Vital Signs 07/02/24 07/02/24 07/02/24 16:29 16:56 18:01 Temperature 97.9 F 97.6 F Pulse Rate 75 69 Respiratory 18 18 18 Rate Blood Pressure 153/74 151/71 142/74 O2 Sat by Pulse 97 98 Oximetry - Reevaluation(s) Reevaluation #1: 07/02/24 18:21 Medical records reviewed Reevaluation #2: 07/02/24 18:21 Symptoms do appear improved, patient was able to ambulate without difficulty here in the ER Orthostatic blood pressures are normal Reevaluation #3: 07/02/24 18:22 Patient informed of results questions answered Reevaluation #4: Was pt. sent in by a medical professional or institution (, PA, FACTORY ENGINEER, urgent care, hospital, or group home...) When possible be specific @ -no Did you speak to anyone other than the patient for history (EMS, parent, family, police, friend...)? What history was obtained from this source @ -no Did you review nursing and triage notes (agree or disagree)? Why? @ -agree Are old charts reviewed (outside hosp., previous admission, EMS record, old EKG, old radiological studies, urgent care reports/EKG's, group home records)? Report findings @ -yes Differential Diagnosis (chest pain, altered mental status, abdominal pain women, abdominal pain men, vaginal bleeding, weakness, fever, dyspnea, syncope, headache, dizziness, GI bleed, back pain, seizure, CVA, palpatations, mental health, musculoskeletal)? @ -prior EKG interpreted by me (3pts min.). @ -yes X-rays interpreted by me (1pt min.). @ -yes negative for acute disease CT interpreted by me (1pt min.). @ -no U/S interpreted by me (1pt. min.). @ -no What testing was considered but not performed or refused? (CT, X-rays, U/S, labs)? Why? @ -none What meds were considered but not given or refused? Why? @ -none Did you discuss the management of the patient with other professionals (professionals i.e. , PA, FACTORY ENGINEER, lab, RT, psych nurse, social worker clinical, asw specialist, teacher, forest fire control officer, employment case manager)? Give summary @ -no Was smoking cessation discussed for >3mins.? @ -no Was critical care preformed (if so, how long)? @ -no Were there social determinants of health that impacted care today? How? (Homelessness, low income, unemployed, alcoholism, drug addiction, transportation, low edu. Level, literacy, decrease access to med. care, alf, rehab)? @ -none Was there de-escalation of care discussed even if they declined (Discuss DNR or withdrawal of care, Hospice)? DNR status @ -no What co-morbidities impacted this encounter? (DM, HTN, Smoking, COPD, CAD, Cancer, CVA, ARF, Chemo, Hep., AIDS, mental health diagnosis, sleep apnea, morbid obesity)? @ -none Was patient admitted / discharged? Hospital course, mention meds given and route, prescriptions, significant lab abnormalities, going to OR and other pertinent info. @ - Undiagnosed new problem with uncertain prognosis? @ -no Drug Therapy requiring intensive monitoring for toxicity (Heparin, Nitro, Insulin, Cardizem)? @ -no Were any procedures done? @ -no Diagnosis/symptom? @ - Acute, or Chronic, or Acute on Chronic? @ -Acute Uncomplicated (without systemic symptoms) or Complicated (systemic symptoms)? @ -Complicated Side effects of treatment? @ -no Exacerbation, Progression, or Severe Exacerbation? @ -exacerbation Poses a threat to life or bodily function? How? (Chest pain, USA, NV, pneumonia, PE, COPD, DKA, ARF, appy, cholecystitis, CVA, Diverticulitis, Homicidal, Suicidal, threat to staff... and all critical care pts) @ -yes Reevaluation #5: Differential Dizziness: Benign paroxysmal positional Vertigo, Meniere's disease, otitis media, acoustic neuroma, vertebrobasilar insufficiency, cerebellar stroke, encephalitis, hypovolemic, arrhythmia, coronary artery syndrome, anemia, this is not meant to be an all-inclusive list EKG Findings - EKG Comments: EKG Findings:: EKG is sinus 68 ME 141 QRS 78 QTc 387 - EKG Results: EKG: interpreted by NIKIA Medical Decision Making - Medical Decision Making 83 female to ER with persistent dizziness that is improved while here in the ER after hydration. Patient feels well throughout ER stay blood pressures remain normal and has been stable orthostatic blood pressures within normal limits and patient feels well and can be discharged home - Lab Data Result diagrams: 07/02/24 16:51 07/02/24 16:51 Lab Results 07/02/24 07/02/24 07/02/24 Range/Units 16:51 16:51 16:51 WBC 6.23 (4.50-10.00) 10*3/uL RBC 4.32 (4.10-5.20) 10*6/uL Hgb 12.9 (12.0-15.0) g/dL Hct 38.6 (37.2-46.3) % MCV 89.4 (80.0-97.0) fL MCH 29.9 (27.0-32.0) pg MCHC 33.4 (32.0-37.0) g/dL Plt Count 213 (140-440) 10*3/uL MPV 11.6 (9.5-12.2) fL Immature Gran % (Auto) 0.3 % Neutrophils % 57.0 % Lymphocytes % 28.1 % Monocytes % 9.0 % Eosinophils % 4.8 % Basophils % 0.8 % Immature Gran # 0.02 (0.00-0.04) 10*3/uL Neutrophils # 3.55 (1.80-7.70) 10*3/uL Lymphocytes # 1.75 (0.90-5.00) 10*3/uL Monocytes # 0.56 (0.20-1.00) 10*3/uL Eosinophils # 0.30 (0.04-0.35) 10*3/uL Basophils # 0.05 (0.00-0.10) 10*3/uL PT 11.3 (10.0-12.5) sec INR 1.0 (<1.2) APTT 24.5 (22.0-30.0) sec Sodium 138 (137-145) mmol/L Potassium 3.9 (3.5-5.1) mmol/L Chloride 105 (98-107) mmol/L Carbon Dioxide 26 (22-30) mmol/L Anion Gap 7 mmol/L BUN 21 H (7-17) mg/dL Creatinine 1.06 H (0.52-1.04) mg/dL Est GFR (CKD-EPI)AfAm 56 (>60 ml/min/1.73 sqM) Est GFR (CKD-EPI)NonAf 49 (>60 ml/min/1.73 sqM) Glucose 117 H (74-99) mg/dL Plasma Lactic Acid Haris (0.7-2.0) mmol/L Calcium 9.0 (8.4-10.2) mg/dL Phosphorus 3.9 (2.5-4.5) mg/dL Magnesium 1.8 (1.6-2.3) mg/dL Total Bilirubin 0.7 (0.2-1.3) mg/dL AST 26 (14-36) U/L ALT 11 (4-34) U/L Alkaline Phosphatase 42 (38-126) U/L Troponin I (0.000-0.034) ng/mL NT-Pro-B Natriuret Pep 793 pg/mL Total Protein 6.5 (6.3-8.2) g/dL Albumin 3.9 (3.5-5.0) g/dL Urine Color Urine Appearance (Clear) Urine pH (5.0-8.0) Ur Specific [place] (1.001-1.035) Urine Protein (Negative) Urine Glucose (UA) (Negative) Urine Ketones (Negative) Urine Blood (Negative) Urine Nitrite (Negative) Urine Bilirubin (Negative) Urine Urobilinogen (<2.0) mg/dL Ur Leukocyte Esterase (Negative) Urine RBC (0-5) /hpf Urine WBC (0-5) /hpf Ur Squamous Epith Cells (0-4) /hpf Urine Bacteria (None) /hpf 07/02/24 07/02/24 07/02/24 Range/Units 16:51 16:51 17:39 WBC (4.50-10.00) 10*3/uL RBC (4.10-5.20) 10*6/uL Hgb (12.0-15.0) g/dL Hct (37.2-46.3) % MCV (80.0-97.0) fL MCH (27.0-32.0) pg MCHC (32.0-37.0) g/dL Plt Count (140-440) 10*3/uL MPV (9.5-12.2) fL Immature Gran % (Auto) % Neutrophils % % Lymphocytes % % Monocytes % % Eosinophils % % Basophils % % Immature Gran # (0.00-0.04) 10*3/uL Neutrophils # (1.80-7.70) 10*3/uL Lymphocytes # (0.90-5.00) 10*3/uL Monocytes # (0.20-1.00) 10*3/uL Eosinophils # (0.04-0.35) 10*3/uL Basophils # (0.00-0.10) 10*3/uL PT (10.0-12.5) sec INR (<1.2) APTT (22.0-30.0) sec Sodium (137-145) mmol/L Potassium (3.5-5.1) mmol/L Chloride (98-107) mmol/L Carbon Dioxide (22-30) mmol/L Anion Gap mmol/L BUN (7-17) mg/dL Creatinine (0.52-1.04) mg/dL Est GFR (CKD-EPI)AfAm (>60 ml/min/1.73 sqM) Est GFR (CKD-EPI)NonAf (>60 ml/min/1.73 sqM) Glucose (74-99) mg/dL Plasma Lactic Acid Haris 0.8 (0.7-2.0) mmol/L Calcium (8.4-10.2) mg/dL Phosphorus (2.5-4.5) mg/dL Magnesium (1.6-2.3) mg/dL Total Bilirubin (0.2-1.3) mg/dL AST (14-36) U/L ALT (4-34) U/L Alkaline Phosphatase (38-126) U/L Troponin I <0.012 (0.000-0.034) ng/mL NT-Pro-B Natriuret Pep pg/mL Total Protein (6.3-8.2) g/dL Albumin (3.5-5.0) g/dL Urine Color Colorless Urine Appearance Clear (Clear) Urine pH 7.0 (5.0-8.0) Ur Specific [place] 1.003 (1.001-1.035) Urine Protein Negative (Negative) Urine Glucose (UA) Negative (Negative) Urine Ketones Negative (Negative) Urine Blood Negative (Negative) Urine Nitrite Negative (Negative) Urine Bilirubin Negative (Negative) Urine Urobilinogen <2.0 (<2.0) mg/dL Ur Leukocyte Esterase Small H (Negative) Urine RBC <1 (0-5) /hpf Urine WBC 13 H (0-5) /hpf Ur Squamous Epith Cells <1 (0-4) /hpf Urine Bacteria Rare H (None) /hpf - EKG Data -: EKG Interpreted by De - Radiology Data Radiology results: report reviewed (CT brain and chest x-ray are negative for acute disease), image reviewed Disposition Clinical Impression: Dizziness Condition: Fair Instructions (If sedation given, give patient instructions): Dizziness (ED) Is patient prescribed a controlled substance at d/c from ED?: No Referrals: Callum Cain MD [Primary Care Provider] - 1-2 days Time of Disposition: 18:00
[2024-07-02 16:57] LABS: Basophils # (A) 0.05 10*3/uL (0.00-0.10); Basophils % (A) 0.8 %; Eosinophils % (A) 4.8 %; HCT 38.6 % (37.2-46.3); HGB 12.9 g/dL (12.0-15.0); Lymphocytes # (A) 1.75 10*3/uL (0.90-5.00); Lymphocytes % (A) 28.1 %; MCH 29.9 pg (27.0-32.0); MCHC 33.4 g/dL (32.0-37.0); MCV 89.4 fL (80.0-97.0); Mean Platelet Volume 11.6 fL (9.5-12.2); Monocytes # (A) 0.56 10*3/uL (0.20-1.00); Neutrophils # (A) 3.55 10*3/uL (1.80-7.70); Platelet Count 213 10*3/uL (140-440); RBC 4.32 10*6/uL (4.10-5.20); RDW 12.3 % (11.5-14.5); WBC 6.23 10*3/uL (4.50-10.00)
[2024-07-02] MEDS: SODIUM CHLORIDE 0.9% 1,000 ML IV ONE (17:00)
[2024-07-02 17:15] LABS: ALT 11 U/L (4-34); AST 26 U/L (14-36); African American GFR (CKD) 56 (>60 ml/min/1.73 sqM); Albumin 3.9 g/dL (3.5-5.0); Alkaline Phosphatase 42 U/L (38-126); Anion Gap 7 mmol/L; Blood Urea Nitrogen 21 mg/dL (7-17); Carbon Dioxide 26 mmol/L (22-30); Chloride 105 mmol/L (98-107); Glucose 117 mg/dL (74-99); Magnesium 1.8 mg/dL (1.6-2.3); Non-African American GFR(CKD) 49 (>60 ml/min/1.73 sqM); Phosphorus 3.9 mg/dL (2.5-4.5); Potassium 3.9 mmol/L (3.5-5.1); Sodium 138 mmol/L (137-145); Total Bilirubin 0.7 mg/dL (0.2-1.3); Total Protein 6.5 g/dL (6.3-8.2)
[2024-07-02 17:16] LABS: Partial Thromboplastin Time 24.5 sec (22.0-30.0); Prothrombin Time 11.3 sec (10.0-12.5)
[2024-07-02 17:22] LABS: NT-Pro-B-Type Natriuretic Pept 793 pg/mL
[2024-07-02 18:00] LABS: Appearance,Urine Clear (Clear); Bacteria,Urine Rare /hpf; Bilirubin,Urine Negative (Negative); Blood,Urine Negative (Negative); Color,Urine Colorless; Glucose,Urine (UA) Negative (Negative); Ketones,Urine Negative (Negative); Leukocyte Esterase,Urine Small (Negative); Nitrite,Urine Negative (Negative); Protein,Urine Negative (Negative); RBC,Urine <1 /hpf (0-5); Specific Gravity,Urine 1.003 (1.001-1.035); Squamous Epithelial Cell,Urine <1 /hpf (0-4); Urobilinogen,Urine <2.0 mg/dL (<2.0); WBC,Urine 13 /hpf (0-5)
[2024-07-02 18:02] VITALS: BP 142/74; PULSE 69; TEMP 97.6
--- NOTE | 2024-07-02 18:02 | XR ---
EXAMINATION TYPE: XR chest 2V DATE OF EXAM: 07/02/2024 5:58 PM COMPARISON: Chest radiographs from 11/08/2023. CLINICAL INDICATION: Female, 83 years old with history of weak; [facility] TECHNIQUE: XR chest 2V Frontal and lateral views of the chest. FINDINGS: Lungs/Pleura: There is no evidence of pleural effusion, focal consolidation, or pneumothorax. Pulmonary vascularity: Unremarkable. Heart/mediastinum: Cardiomediastinal silhouette is unremarkable. Atherosclerotic calcifications are seen in the aorta. Musculoskeletal: No acute osseous pathology. IMPRESSION: No acute cardiopulmonary disease/process. [facility], , 07/02/2024 6:00 PM
--- NOTE | 2024-07-02 18:05 | CT ---
EXAMINATION TYPE: CT brain wo con DATE OF EXAM: 07/02/2024 5:53 PM COMPARISON: 06/24/2018. CLINICAL INDICATION: Female, 83 years old with history of weak, MOORE. Weakness. TECHNIQUE: Brain: Axial CT images of the brain were obtained with coronal and sagittal reformats created and rev iewed. Contrast used: None. Oral contrast used: None. CT DLP: 1068.4 mGycm, Automated exposure control for dose reduction was used. FINDINGS: Brain: Extra-axial spaces: No abnormal extra-axial fluid collections. Possible arachnoid cyst in the right m iddle cranial fossa/medial temporal lobe. Finding unchanged from prior. Ventricular system: Within normal limits Cerebral parenchyma: Subtle white matter changes in the left insular cortex and left basal ganglia No acute intraparenchymal hemorrhage or mass effect. The nails-white junction is well differentiated. Cerebellum: Cerebellar tonsils extend below the foramen magnum up to 4 mm. Findings similar to prior 06/24/2018 Mass effect: No evidence of midline shift. Intracranial vasculature: unremarkable Soft tissues: Normal. Calvarium/osseous structures: No depressed skull fracture. Paranasal sinuses and mastoid air cells: Mild scattered paranasal sinus disease. Visualized orbits: Orbital contents are intact. IMPRESSION: 1. Subtle white matter changes in the left insular cortex and left basal ganglia. Consider MRI to ru le out acute/subacute CVA. Otherwise, no acute intracranial process. 2. 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 3. Cerebellar tonsillar ectopia. [facility], , 07/02/2024 6:03 PM
== END 2024-07-02 18:36 | disposition home or self-care (01) ==
LOC: EC 16:28
DX: R42 Dizziness and giddiness (principal); Z87.891 Personal history of nicotine dependence; Z88.0 Allergy status to penicillin
CPT/HCPCS: 36415; 70450; 71046; 80053; 81001; 83605; 83735; 83880; 84100; 84484; 85025; 85610; 85730; 93005; 96360; 99285